=== PATIENT | male | born 1940 | race Caucasian/White ===

== ENCOUNTER 2020-01-15 11:07 | Outpatient (CLI) | payer MEDICARE, SELFPAY ==
[2020-01-15 11:36] LABS: Basophils Percent Auto 0.8 % (0.2-1.2); Eosinophils Percent Auto 0.8 % (0-4.4); Hematocrit 24.9 % (42.0-52.0); Hemoglobin 8.1 g/dL (14.0-18.0); Immature Reticulocyte Fraction 22.7 % (3.0-15.9); Lymphocytes Absolute Auto 1.01 K/mm3 (0.9-3.2); Lymphocytes Percent Auto 80.2 % (18.3-44.2); Mean Corpuscular HGB Conc 32.5 g/dl (32-36); Mean Corpuscular Volume 116.9 fl (80-100); Mean Platelet Volume 10.6 fl (7.4-10.4); Monocytes Absolute Auto 0.1 K/mm3 (0.1-0.6); Monocytes Percent Auto 4.8 % (2.6-8.5); Neutrophils Absolute Auto 0.2 K/mm3 (1.3-6.7); Neutrophils Percent Auto 13.4 % (45.5-73.1); Platelet Count Result 48 k/mm3 (150-375); Red Blood Count 2.13 M/mm3 (4.6-6.20); Red Cell Distribution Width 16.6 % (11.5-14.5); Reticulocyte Hemoglobin Conten 39.7 pg (28.2-35.7); Reticulocyte Percent 2.75 % (0.7-4.3); Reticulocytes Absolute 0.06 B/L (32.2-175.7)
[2020-01-15 11:37] LABS: White Blood Count 1.3 K/mm3 (4.5-10.0)
[2020-01-15 11:42] LABS: Hypochromasia 1+ (NORMAL); Platelet Estimate Decreased (Adequate)
[2020-01-15 11:43] LABS: Ovalocytes 1+ (NORMAL); Poikilocytosis 1+ (NORMAL)
[2020-01-15 15:04] LABS: Iron 143 ug/dL (49-181)
[2020-01-15 15:06] LABS: Alanine Aminotransferase 9 U/L (4-50); Albumin Level 3.8 g/dL (3.5-5.1); Alkaline Phosphatase 57 U/L (38-126); Aspartate Amino Transferase 13 U/L (17-59); Bilirubin,Total 0.4 mg/dL (0.2-1.3); Blood Urea Nitrogen 14 mg/dL (9-20); Calcium 8.5 mg/dL (8.4-10.2); Carbon Dioxide 27 mmol/L (22-30); Chloride 105 mmol/L (98-107); Estimated Glomerular Filt Rate > 60; Glucose 119 mg/dL (75-110); Lactate Dehydrogenase 342 U/L (313-618); Potassium 4.3 mmol/L (3.4-5.0); Sodium 138 mmol/L (137-145)
[2020-01-15 15:21] LABS: Percent Iron Saturation 49 % (20-50)
== END 2020-01-15 11:08 | disposition home or self-care (01) ==
PROVIDERS: PCP Internal Medicine; Visit Provider Internal Medicine Hematology & Oncology
DX: D61.818 Other pancytopenia (principal); D50.9 Iron deficiency anemia, unspecified
CPT/HCPCS: 36415; 80053; 82607; 82728; 83540; 83550; 83615; 85025; 85046; 85055

== ENCOUNTER 2020-01-23 06:40 | Day surgery (SDC) | payer MEDICARE, SELFPAY ==
[2020-01-22 16:23] VITALS: BMI 28.5
--- NOTE | ~2020-01-23 | BM_ITS ---
EXAMINATION: CCL bone marrow asp w bx diag ORDER COMPLETED DATE: 01/23/2020 08:04 INDICATION: Pancytopenia TECHNIQUE: A time-out was performed to verify the patient's name, date of , and procedure to b e performed. The procedure including the risks and benefits was discussed with the patient. Risks dis cussed included bleeding, infection, nerve injury and allergic reaction. The patient understood the r isks and agreed to proceed. The skin overlying the right posterior iliac spine was prepped and draped in usual sterile fashion. Anesthetic was administered with 1% lidocaine subcutaneously. Generalized analgesia was achieved with 50 mcg fentanyl IV. An 11 gauge needle was inserted into the ilium with fluoroscopic guidance. Bone marrow was aspirated. An 8 gauge needle was then inserted into the ilium with fluoroscopic guidance. A core bone marrow biopsy was obtained. The needle was removed and the en try site was cleaned and dressed. There were no immediate complications. A total of 7 fluoroscopic i mages were recorded. Fluoroscopy exposure time was 0.1 minutes. FINDINGS: Real-time fluoroscopy demonstrates the biopsy needle tip overlying the right posterior rossi c spine. IMPRESSION: 1. Successful fluoroscopic guided bone marrow aspiration. 2. Successful fluoroscopic guided bone marrow biopsy. Reviewed, dictated and finalized at location A.
[2020-01-23 07:13] LABS: Hematocrit 25.2 % (42.0-52.0); Hemoglobin 8.2 g/dL (14.0-18.0); Immature Platelet Fraction Pct 1.2 % (0.9-11.2); Mean Corpuscular HGB Conc 32.5 g/dl (32-36); Mean Corpuscular Hemoglobin 37.4 pg (26-34); Mean Corpuscular Volume 115.1 fl (80-100); Mean Platelet Volume 10.2 fl (7.4-10.4); Platelet Count Result 50 k/mm3 (150-375); Red Blood Count 2.19 M/mm3 (4.6-6.20); Red Cell Distribution Width 15.9 % (11.5-14.5)
[2020-01-23 07:14] VITALS: BP 158/64; PULSE 65; RESP 14; TEMP 36.4; O2SAT 99
[2020-01-23 07:15] LABS: White Blood Count 1.2 K/mm3 (4.5-10.0)
--- NOTE | 2020-01-23 08:08 | SUR.PHASEII ---
BEGIN PHASE II RECOVERY. RETURNS TO DENTAL OFFICE RECEPTIONIST 3 S/P BONE MARROW ASPIRATION AND BIOPSY R. POSTERIOR HIP W/ DR. SOTELO. IN POSITIONED ON BACK ON STRETCHER. DENIES PAIN OR SOB ON ARRIVAL. AWAKE AND ALERT. R. POSTERIOR HIP DRESSING A C/D/I PRESSURE DRESSING OF GUAZE AND PAPER TAPE. AREA NONTENDER, NO BLEEDING OR HEMATOMA NOTED. VSS. WILL CONTINUE TO MONITOR. BEDREST RESTRICTIONS REVIEWED W/ PT AND . VOICED UNDERSTANDING.
[2020-01-23 08:10] VITALS: BP 158/81; PULSE 61; RESP 18; TEMP 36.6; O2SAT 99
[2020-01-23 08:25] VITALS: BP 128/59; PULSE 58; RESP 18; O2SAT 97
[2020-01-23 08:40] VITALS: BP 122/57; PULSE 57; RESP 18; O2SAT 94
[2020-01-23 08:55] VITALS: BP 117/58; PULSE 56; RESP 18; O2SAT 99
--- NOTE | 2020-01-23 09:15 | SUR.PHASEII ---
VSS. R. POSTERIOR HIP DRESSING REMAINS C/D/I. SITE IS NONTENDER, NO BLEEDING OR HEMATOMA NOTED. DENIES PAIN. UP IN ROOM DRESSING FOR DISCHARGE HOME. STEADY.
--- NOTE | 2020-01-23 09:26 | SUR.PHASEII ---
DISCHARGE INSTRUCTIONS AND BIOPSY SITE WOUND CARE GIVEN AND REVIEWED W/ PT. AND . QUESTIONS ANSWERED AND VOICED UNDERSTANDING.
--- NOTE | 2020-01-23 14:08 | SUR.PHASEII ---
Addendum entered by Angela Chong RN 01/23/20 14:09: NOTE TIME 92901/23/20; SAME DISCHARGE TIME. Original Note: END PHASE II RECOVERY. DISCHARGED HOME, OUT VIA WC W/ AT SIDE TO VEHICLE, WITH ALL PERSONAL BELONGINGS AND DISCHARGE INSTRUCTIONS. VOICES NO C/O.
== END 2020-01-23 09:26 | disposition home or self-care (01) ==
PROVIDERS: PCP Internal Medicine; Referring Provider Internal Medicine Hematology & Oncology; Visit Provider Radiology Diagnostic Radiology
DX: C92.00 Acute myeloblastic leukemia, not having achieved remission (principal); D61.818 Other pancytopenia
CPT/HCPCS: 36415; 38222; 85027; 85055; 88184; 88185; 88305; 88311; 88313; A9270; J2250; J3010; J7040

== ENCOUNTER 2020-01-26 08:24 | Outpatient (CLI) | payer MEDICARE, SELFPAY ==
--- NOTE | ~2020-01-26 | US_ITS ---
US abdomen complete EXAMINATION: US Abdomen Complete INDICATION: Pancytopenia PROCEDURE: Realtime High Resolution abdomen ultrasound. COMPARISON: No prior studies for comparison FINDINGS: Gallbladder within normal limits. No gallstones, pericholecystic fluid, gallbladder wall t hickening or biliary dilatation. Common bile duct measures 4.6 mm. Liver echotexture within normal limits without focal mass. Pancreas within normal limits. Pancreati c tail is obscured by bowel gas. Spleen is unremarkeable. Renal echotexture is within normal limits bilaterally without hydronephrosis, contour deforming mass or renal stone. Right kidney measures 9.6 cm. Left kidney measures 11 cm. Visualized aspects of the aorta and IVC are within normal limits. Portal vein is patent. No sonograph ic Lloyd's sign indicated by the technologist. IMPRESSION: 1: Normal abdominal ultrasound. Reviewed, dictated and finalized at location A.
== END 2020-01-26 08:25 | disposition home or self-care (01) ==
PROVIDERS: PCP Internal Medicine; Visit Provider Internal Medicine Hematology & Oncology
DX: D61.818 Other pancytopenia (principal)
CPT/HCPCS: 76700

== ENCOUNTER 2020-03-03 02:06 | Outpatient (CLI) | payer MEDICARE, SELFPAY ==
[2020-03-03 18:54] LABS: SARS-CoV-2 RNA PCR Negative
== END 2020-03-03 02:07 | disposition home or self-care (01) ==
LOC: ANHCOVIDDT 02:11
PROVIDERS: Visit Provider Surgery
DX: Z01.812 Encounter for preprocedural laboratory examination (principal); Z20.828 Contact with and (suspected) exposure to other viral communicable diseases
CPT/HCPCS: 87635; C9803; U0003

== ENCOUNTER 2020-03-03 08:29 | Outpatient (CLI) | payer MEDICARE, SELFPAY ==
--- NOTE | 2020-03-03 08:30 | ECG_ITS ---
Measurements Intervals [place] Rate: 53 P: 98 [place]: 171 QRS: 29 QRSD: 150 T: 22 QT: 453 QTc: 428 Interpretive Statements SINUS BRADYCARDIA RIGHT BUNDLE BRANCH BLOCK BASELINE ARTIFACT- I, II, III, AVR, AVL, AVF ABNORMAL ECG Electronically Signed On 03-03-2020 9:19:48 CDT by Maldonado Ferrell D.O.
[2020-03-03 09:00] LABS: Eosinophils Percent Auto 0.9 % (0-4.4); Hematocrit 23.4 % (42.0-52.0); Hemoglobin 8.1 g/dL (14.0-18.0); Immature Granulocyte Absolute 0.01 K/mm3 (0.00-0.031); Immature Granulocyte Percent A 0.9 % (0-0.5); Immature Platelet Fraction Pct 1.3 % (0.9-11.2); Lymphocytes Absolute Auto 0.96 K/mm3 (0.9-3.2); Mean Corpuscular HGB Conc 34.6 g/dl (32-36); Mean Corpuscular Hemoglobin 38.8 pg (26-34); Monocytes Percent Auto 3.5 % (2.6-8.5); Neutrophils Absolute Auto 0.1 K/mm3 (1.3-6.7); Neutrophils Percent Auto 9.7 % (45.5-73.1); Platelet Count Result 47 k/mm3 (150-375); Red Blood Count 2.09 M/mm3 (4.6-6.20); Red Cell Distribution Width 15.9 % (11.5-14.5)
[2020-03-03 09:09] LABS: INR 1.1; Partial Thromboplastin Time 23.6 SECONDS (22.3-36.8); Prothrombin Time 14.2 Seconds (11.1-14.7)
[2020-03-03 09:17] LABS: White Blood Count 1.1 K/mm3 (4.5-10.0)
== END 2020-03-03 08:30 | disposition home or self-care (01) ==
PROVIDERS: PCP Internal Medicine; Visit Provider Surgery
DX: C92.00 Acute myeloblastic leukemia, not having achieved remission (principal); Z01.818 Encounter for other preprocedural examination; I45.10 Unspecified right bundle-branch block
CPT/HCPCS: 36415; 85025; 85055; 85610; 85730; 87635; 93005; C9803; U0003

== ENCOUNTER 2020-03-05 01:35 | Day surgery (SDC) | payer MEDICARE, SELFPAY ==
[2020-03-02 12:33] VITALS: BMI 27.8
--- NOTE | 2020-03-05 10:56 | WPDANESEPPF ---
Anes - Initial Pre Proc Eval Procedure: Operation Date: 03/05/20 13:00 Proposed Procedures p Insertion Port A Cath - Renu Pacheco MD Date/Time: 03/05/20 10:56 Surgeon: Renu Pacheco MD Pre Op Diagnosis: acute myeloid leukemia Patient Data Age: 79 Gender: M Height: 1.83 m Weight: 93 kg Allergies Allergy/AdvReac Type Severity Reaction Status Date / Time No Known Allergies Allergy Unverified 03/02/20 12:03 Home Medications Medication Instructions Recorded Confirmed Type dorzolamide [Trusopt] 1 drp OPHTHALMIC (EYE) BID 01/22/20 03/02/20 History latanoprost [Xalatan] 1 drp OPHTHALMIC (EYE) HS 01/22/20 03/02/20 History propranolol 20 mg PO BID 01/22/20 03/02/20 History ciprofloxacin HCl [Cipro] 500 mg BID 03/02/20 03/02/20 History cyanocobalamin (vitamin B-12) 1,000 mcg PO DAILY 03/02/20 03/02/20 History posaconazole [Noxafil] See Rx Instructions .ROUTE .COMPLEX 03/02/20 03/02/20 History valacyclovir 500 mg PO Q12H 03/02/20 03/02/20 History PMFSH Past Medical History Medical History (Updated 03/05/20 @ 10:57 by Alex Sullivan MD) AML (acute myelogenous leukemia) History of prostate cancer Other decreased white blood cell count Pancytopenia Tremor Unspecified glaucoma (01/11/19) Family History Family History (Updated 12/20/17 @ 13:31 by DOCTOR UNKNOWN) Father Family history of malignant neoplasm Sibling Family history of malignant neoplasm Mother Patient's mother is Other Family history of malignant neoplasm of ovary Social History Social History Smoking status: Former smoker Tobacco type: cigarettes Smoking end date: 07/17/14 Alcohol intake: current Drinks per week: 21 Substance use: never Substance use type: does not use Living arrangements: with family Gender identity (if verbalized by the patient): Male Spiritual care concerns: No Anes - Eval Final PreProcedure Day of Procedure 03/05/20 10:56 Patient weight: overweight Heart: regular rate and rhythm Lungs: clear to auscultation and normal air movement Airway: Mallampati scale class II Neurological: alert and oriented Last oral intake: >/= 8 hours ASA classification: III Emergent: no Anesthetic plan: proceed Anesthesia type and monitoring: general GIVS Informed Consent: The patient's anesthetic plan and its attendant risks and benefits were discussed with the patient/family/POA. Questions were solicited and answers provided to the satisfaction of the patient/family/POA.
[2020-03-05 11:22] VITALS: BP 155/56; PULSE 53; RESP 18; TEMP 36.3; O2SAT 100
[2020-03-05] MEDS: LACTATED RINGERS 1,000 ML 30 ML IV CONT (11:35)
[2020-03-05 11:54] LABS: Hematocrit 23.4 % (42.0-52.0); Mean Corpuscular HGB Conc 34.2 g/dl (32-36); Mean Corpuscular Hemoglobin 38.3 pg (26-34); Mean Platelet Volume 9.3 fl (7.4-10.4); Platelet Count Result 38 k/mm3 (150-375); Red Blood Count 2.09 M/mm3 (4.6-6.20); Red Cell Distribution Width 16.1 % (11.5-14.5)
[2020-03-05 12:02] LABS: White Blood Count 1.2 K/mm3 (4.5-10.0)
[2020-03-05 12:11] LABS: Lymphocytes Absolute Manual 1.02 K/mm3 (1.1-4.5); Neutrophils Percent Manual 15 % (46-73); Nucleated Red Blood Cells 2 %; Total Cells Counted 100
[2020-03-05 12:14] LABS: Hypochromasia 1+ (NORMAL); Ovalocytes 1+ (NORMAL); Platelet Estimate Decreased (Adequate); Poikilocytosis 1+ (NORMAL)
--- NOTE | 2020-03-05 12:53 | SUR.PREOP ---
Discharged home. cased cancelled due to low platelet count.
== END 2020-03-05 12:54 | disposition home or self-care (01) ==
PROVIDERS: PCP Internal Medicine; Visit Provider Surgery
DX: C92.00 Acute myeloblastic leukemia, not having achieved remission (principal); D69.6 Thrombocytopenia, unspecified; Z53.09 Procedure and treatment not carried out because of other contraindication
CPT/HCPCS: 36415; 85025; 99212; G0463; J7120

== ENCOUNTER 2020-03-10 02:15 | Outpatient (CLI) | payer MEDICARE, SELFPAY ==
[2020-03-10 18:23] LABS: SARS-CoV-2 RNA PCR Negative
== END 2020-03-10 02:16 | disposition home or self-care (01) ==
LOC: ANHCOVIDDT 02:16
PROVIDERS: PCP Internal Medicine; Visit Provider Surgery
DX: Z01.812 Encounter for preprocedural laboratory examination (principal); Z20.828 Contact with and (suspected) exposure to other viral communicable diseases
CPT/HCPCS: 87635; C9803; U0003

== ENCOUNTER 2020-03-12 01:26 | Day surgery (SDC) | payer MEDICARE, SELFPAY ==
[2020-03-10 13:57] VITALS: BMI 27.3
--- NOTE | ~2020-03-12 | XR_ITS ---
EXAMINATION: XR fl guide central line place DATE: 03/12/2020 12:33 INDICATION: Port catheter placement TECHNIQUE: 2 fluoroscopic spot images of the left and central chest were obtained during procedure pe rformed by Dr. Pacheco. Radiologist was not present for the imaging or procedure. The amount of fluoros copy time used during this procedure was 0.2 minutes. COMPARISON: None. FINDINGS: Left subclavian central venous port catheter with distal tip at the superior cavoatrial junction. Uti lized portions of the lungs are clear. No pneumothorax. IMPRESSION: 1. Left subclavian central venous port catheter tip at the superior cavoatrial junction. Reviewed, dictated and finalized at location A.
--- NOTE | ~2020-03-12 | XR_ITS ---
EXAMINATION: XR chest port-a-cath/central DATE: 03/12/2020 13:01 INDICATION: Port catheter insertion TECHNIQUE: frontal view of the chest was obtained. COMPARISON: None FINDINGS: Left subclavian central venous port catheter with distal tip at the superior cavoatrial junction. Rig ht costophrenic angle is excluded from the [id number]. Visualized lungs are clear with no airspace opacities, pulmonary edema, pleural effusion or pneumothorax. The cardiomediastinal silhouette is no rmal. Atherosclerotic calcifications at the aortic arch. IMPRESSION: 1. Left subclavian central venous port catheter tip at the superior cavoatrial junction. 2. No acute cardiopulmonary disease. Reviewed, dictated and finalized at location A.
[2020-03-12] MEDS: LACTATED RINGERS 1,000 ML 30 ML IV CONT (09:25)
[2020-03-12 09:37] LABS: Eosinophils Percent Auto 1.1 % (0-4.4); Hematocrit 23.9 % (42.0-52.0); Hemoglobin 7.9 g/dL (14.0-18.0); Immature Platelet Fraction Pct 1.3 % (0.9-11.2); Lymphocytes Absolute Auto 0.77 K/mm3 (0.9-3.2); Lymphocytes Percent Auto 86.5 % (18.3-44.2); Mean Corpuscular HGB Conc 33.1 g/dl (32-36); Mean Corpuscular Hemoglobin 38.3 pg (26-34); Mean Platelet Volume 9.7 fl (7.4-10.4); Monocytes Percent Auto 2.2 % (2.6-8.5); Neutrophils Absolute Auto 0.1 K/mm3 (1.3-6.7); Neutrophils Percent Auto 10.2 % (45.5-73.1); Platelet Count Result 38 k/mm3 (150-375); Red Blood Count 2.06 M/mm3 (4.6-6.20)
[2020-03-12 09:54] VITALS: BP 123/51; PULSE 51; RESP 16; TEMP 36.6
[2020-03-12 09:55] LABS: White Blood Count 0.9 K/mm3 (4.5-10.0)
[2020-03-12] MEDS: SODIUM CHLORIDE 0.9% IV 250 ML 30 ML IV CONT (11:00)
--- NOTE | 2020-03-12 11:05 | WPDANESEPPF ---
Anes - Initial Pre Proc Eval Procedure: Operation Date: 03/12/20 12:00 Proposed Procedures p Insertion Dinesh Cath - Renu Pacheco MD Date/Time: 03/12/20 11:05 Surgeon: Renu Pacheco MD Pre Op Diagnosis: Acute Myeloblastic Patient Data Age: 79 Gender: M Height: 6 ft Weight: 90.2 kg Last Vital Signs Temp 36.6 C 03/12/20 09:54 Pulse 51 L 03/12/20 09:54 Resp 16 03/12/20 09:54 BP 123/51 L 03/12/20 09:54 Allergies Allergy/AdvReac Type Severity Reaction Status Date / Time No Known Allergies Allergy Verified 03/12/20 09:42 Home Medications Medication Instructions Recorded Confirmed Type dorzolamide [Trusopt] 1 drp OPHTHALMIC (EYE) BID 01/22/20 03/12/20 History latanoprost [Xalatan] 1 drp OPHTHALMIC (EYE) HS 01/22/20 03/12/20 History ciprofloxacin HCl [Cipro] 500 mg BID 03/02/20 03/12/20 History posaconazole [Noxafil] 100 mg PO QAM 03/02/20 03/12/20 History valacyclovir 500 mg PO Q12H 03/02/20 03/12/20 History propranolol 20 mg tablet 20 mg PO BID #180 tablet 03/10/20 03/12/20 Rx Laboratory Tests 03/12/20 03/12/20 09:29 09:29 WBC 0.9 K/mm3 L* K/mm3 (4.5-10.0) RBC 2.06 M/mm3 L M/mm3 (4.6-6.20) Hgb 7.9 g/dL L g/dL (14.0-18.0) Hct 23.9 % L % (42.0-52.0) MCV 116.0 fl H fl (80-100) MCH 38.3 pg H pg (26-34) MCHC 33.1 g/dl g/dl (32-36) RDW 17.0 % H % (11.5-14.5) Plt Count 38 k/mm3 L k/mm3 (150-375) MPV 9.7 fl fl (7.4-10.4) Immature Gran % (Auto) 0.0 % % (0-0.5) Neut % (Auto) 10.2 % L % (45.5-73.1) Lymph % (Auto) 86.5 % H % (18.3-44.2) [place] % (Auto) 2.2 % L % (2.6-8.5) Eos % (Auto) 1.1 % % (0-4.4) Baso % (Auto) 0.0 % L % (0.2-1.2) Lymph # (Auto) 0.77 K/mm3 L K/mm3 (0.9-3.2) [place] # (Auto) 0.0 K/mm3 L K/mm3 (0.1-0.6) Eos # (Auto) 0.0 K/mm3 K/mm3 (0-0.3) Baso # (Auto) 0.0 K/mm3 K/mm3 (0.0-0.1) Abs Immat Gran (auto) 0.00 K/mm3 K/mm3 (0.00-0.031) Absolute Neuts (auto) 0.1 K/mm3 L K/mm3 (1.3-6.7) Absolute Nucleated RBC 0.0 K/mm3 K/mm3 (0.0-0.012) Nucleated RBC % 0.0 % % (0.0-0.2) % Immature Plt Fraction 1.3 % % (0.9-11.2) Blood Type A Negative Antibody Screen Negative Patient hx anesthesia problems: none Family hx anesthesia problems: none PMFSH Past Medical History Medical History AML (acute myelogenous leukemia) History of prostate cancer Other decreased white blood cell count Pancytopenia Tremor Unspecified glaucoma (01/11/19) Family History Family History Father Family history of malignant neoplasm Sibling Family history of malignant neoplasm Mother Patient's mother is Other Family history of malignant neoplasm of ovary Social History Social History Smoking packs per day: 1 Smoking cigarettes per day: 20.0 Years smoked: 50 Smoking pack-years: 50.00 Smoking status: Former smoker Tobacco type: cigarettes Smoking end date: 01/01/16 Alcohol intake: current Drinks per week: 21 Alcohol use details: 3 BEERS DAILY Substance use: never Substance use type: does not use Living arrangements: with family Gender identity (if verbalized by the patient): Male Spiritual care concerns: No Anes - Eval Final PreProcedure Day of Procedure 03/12/20 11:05 Patient weight: overweight Heart: regular rate and rhythm Lungs: decreased breath sounds Airway: Mallampati scale class II Neurological: alert and oriented Last oral intake: >/= 8 hours ASA classification: IV Emergent: no Anesthetic plan: proceed Anesthesia type and monitoring: general GIVS and standard monitoring Informed Consent: The patient's anesthetic plan a
[2020-03-12 11:06] VITALS: BP 127/49; PULSE 52; RESP 20; TEMP 36.7; O2SAT 100
[2020-03-12 11:21] VITALS: BP 133/56; PULSE 57; RESP 20; TEMP 36.7; O2SAT 100
--- NOTE | 2020-03-12 11:25 | PM.IMHP ---
H&P: HPI History of Present Illness Date/Time: 03/12/20 11:25 Chief complaint: Acute Myeloblastic Narrative: uYniel Jimenes is a 79 year old male presenting for VAD insertion. Pt is going to undergo treatment for recently dx'd AML. Pt is setup to start treatment on 03/16. Pt denies any previous central catherterization. Pt is right handed. Review of Systems Constitutional: Constitutional: Denies body ache(s), Denies chills, Reports fatigue, Reports lethargy, Denies night sweats and Reports weakness Eyes: Eyes: Reports no additional eye complaints ENT: Reports system reviewed and no additional complaints, except as documented and Reports Normal hearing present Cardiovascular: Cardiovascular: Denies chest pain and Denies palpitations Respiratory: Respiratory: Denies cough and Denies dyspnea Gastrointestinal: Gastrointestinal: Denies abdominal pain, Denies bloating, Denies constipation, Denies diarrhea, Denies nausea and Denies vomiting Genitourinary: Genitourinary: Denies hematuria, Denies dysuria and Denies urinary urgency Musculoskeletal: Musculoskeletal: Reports no additional musculoskeletal complaints Integumentary/Breasts: Skin/Breast: Reports system reviewed and no additional complaints, except as docu Neurologic: Reports system reviewed and no additional complaints, except as documented Psychiatric: Psychiatric: Reports no additional psychiatric complaints PMF Past Medical History Medical History AML (acute myelogenous leukemia) History of prostate cancer Other decreased white blood cell count Pancytopenia Tremor Unspecified glaucoma (01/11/19) Family History Family History Father Family history of malignant neoplasm Sibling Family history of malignant neoplasm Mother Patient's mother is Other Family history of malignant neoplasm of ovary Social History Social History Smoking packs per day: 1 Smoking cigarettes per day: 20.0 Years smoked: 50 Smoking pack-years: 50.00 Smoking status: Former smoker Tobacco type: cigarettes Smoking end date: 07/17/15 Alcohol intake: current Drinks per week: 21 Alcohol use details: 3 BEERS DAILY Substance use: never Substance use type: does not use Living arrangements: with family Gender identity (if verbalized by the patient): Male Spiritual care concerns: No Meds Home Medications and Allergies Home Medications Medication Instructions Recorded Confirmed Type dorzolamide [Trusopt] 1 drp OPHTHALMIC (EYE) BID 01/22/20 03/12/20 History latanoprost [Xalatan] 1 drp OPHTHALMIC (EYE) HS 01/22/20 03/12/20 History ciprofloxacin HCl [Cipro] 500 mg BID 03/02/20 03/12/20 History posaconazole [Noxafil] 100 mg PO QAM 03/02/20 03/12/20 History valacyclovir 500 mg PO Q12H 03/02/20 03/12/20 History propranolol 20 mg tablet 20 mg PO BID #180 tablet 03/10/20 03/12/20 Rx Allergies Allergy/AdvReac Type Severity Reaction Status Date / Time No Known Allergies Allergy Verified 03/12/20 09:42 Vital Signs Vital Signs - 24 hr 03/12/20 09:54 03/12/20 11:06 03/12/20 11:21 Temperature 36.6 C 36.7 C 36.7 C Pulse Rate 51 L 52 L 57 L Respiratory Rate 16 20 20 Blood Pressure 123/51 L 127/49 L 133/56 L Pulse Oximetry 100 100 Exam Const: General: comfortable and no acute distress HENMT: Mouth: Yes moist mucous membranes Eyes: General: appearance normal, both eyes and all related structures Neck: Neck: supple and no JVD Lymphatic: lymphadenopathy not noted Resp: Auscultation: clear to auscultation bilaterally Cardio: Rate: regular rate Rhythm: regular rhythm GI: Inspection: non-distended GI Palp: Yes Soft to palpation, No Tenderness to palpation present (GI) and No Hernia present Skin: General skin exam: normal color and no rashes or
[2020-03-12] MEDS: ceFAZolin 2 GM/D5W 50 ML 2 GM/50 ML BAG IVPB (11:53)
[2020-03-12] MEDS: BUPIVACAINE/EPINEPHRINE 0.5% 30 ML VIAL INFILTRATE (12:21)
[2020-03-12] MEDS: HEPARIN SODIUM, PORCINE 10,000 UNITS/10 ML VIAL 10000 UNITS IRRIGATION (12:22)
[2020-03-12] MEDS: HEPARIN SODIUM 5,000 UNITS/ML VIAL 5000 UNITS IRRIGATION (12:23)
[2020-03-12 12:40] VITALS: BP 135/63; PULSE 66; RESP 18; O2SAT 100
--- NOTE | 2020-03-12 13:03 | PM.PROC ---
Procedure Note - Detailed Date of procedure: 03/12/20 Pre-op diagnosis: Acute Myeloblastic Post-op diagnosis: same Procedure performed: placement of left subclavian venous access device under fluroscopic guidance Description of procedure: Patient was brought into the operating room and placed in the supine position. After adequate induction of mac anesthesia, the patient was prepped and draped in normal sterile fashion. Time-out was then done to verify the patient's identity, as well as the procedure being performed. I began by making a small incision in the left chest, I then gained access into the left subclavian vein with an 18 gauge needle. I then placed the guidewire into the vein and confirmed placement via fluoroscopic guidance. I then locally anesthetized the area in the left chest. I then enlarged the incision around the guidewire including making a subcutaneous pocket inferiorly to allow placement of the port itself. I then placed a dilating sheath over the guidewire into the left subclavian vein via sterile Seldinger technique. This was once again done and confirmed via fluoroscopic guidance. I then removed the dilator and the guidewire, now just leaving the sheath in the vein. I then fed the previously flushed catheter into the left subclavian vein under fluoroscopic guidance. At approximately 22 cm, the catheter was noted to be near the atrial caval junction. I then peeled away the sheath, now just leaving the catheter in the vein. I then was able to easily draw and flush from the catheter. The catheter was cut to fit and attached to the port itself. The port was placed into the previously made subcutaneous pocket and sutured in with 0 Ethibond suture. Final fluoroscopic view showed the termination of the catheter at the atrial caval junction with a nice smooth curvature back to the port itself. I was able to gain access to the port with a Bautista needle and was able to easily draw and flush from the port. I then flushed 3 cc of a final heparin flush into the port. The incision was closed with 3 0 Vicryl suture in the subcutaneous tissue and the skin was closed with 4 O Monocryl subcuticular suture. Dermabond was then placed on wound. The patient tolerated the procedure well and will be sent to the recovery room in stable condition. Implants: L SCV VAD Anesthesia: MAC and local Surgeon: Renu Pacheco MD Estimated blood loss (mL): 5 Drains: No Packing: No Pathology: none sent Complications: No immediate complications Condition: stable Disposition: PACU Findings: placement of L SCV VAD via 1st stick
[2020-03-12 13:11] VITALS: BP 136/61; PULSE 64; RESP 16
== END 2020-03-12 13:55 | disposition home or self-care (01) ==
PROVIDERS: PCP Internal Medicine; Visit Provider Surgery
PROC: (CPT 36561; principal; 2020-03-12 12:00)
DX: C92.00 Acute myeloblastic leukemia, not having achieved remission (principal); D61.818 Other pancytopenia
CPT/HCPCS: 36561; 36415; 36430; 76937; 77001; 85025; 85055; 86850; 86900; 86901; C1788; J0690; J1644; J2704; J3010; J7030; J7050; J7120; P9034

== ENCOUNTER 2020-04-01 07:23 | Outpatient (RCR) | payer MEDICARE, SELFPAY ==
[2020-04-01] VITALS (8 sets, daily range): BP systolic 101–127; BP diastolic 52–59; PULSE 67–86; RESP 12–15; TEMP 37–37.6; O2SAT 97–100
[2020-04-01] MEDS: diphenhydrAMINE HCl CAP 25 MG CAPSULE PO (08:11)
[2020-04-01] MEDS: ACETAMINOPHEN 325 MG TABLET 650 MG PO (08:11)
[2020-04-01] MEDS: FUROSEMIDE INJ 40 MG/4 ML VIAL 20 MG IV PUSH (11:29)
== END 2020-05-28 23:59 | disposition home or self-care (01) ==
LOC: ANHCPCTRAN 07:23
PROVIDERS: PCP Internal Medicine; Visit Provider Internal Medicine Hematology & Oncology
DX: C92.00 Acute myeloblastic leukemia, not having achieved remission (principal)
CPT/HCPCS: 36415; 36430; 86850; 86900; 86901; 86923; A9270; J1940; P9016

== ENCOUNTER 2020-04-03 09:13 | Inpatient (IN) | payer MEDICARE, SELFPAY ==
[2020-04-03] VITALS (15 sets, daily range): BP systolic 99–125; BP diastolic 48–57; PULSE 76–116; RESP 16–29; TEMP 36.7–38.3; O2SAT 95–99
--- NOTE | ~2020-04-03 | XR_ITS ---
EXAMINATION: XR chest 1V portable EXAM DATE: 04/03/2020 10:21 INDICATION: Weakness. TECHNIQUE: Portable AP frontal chest x-ray was obtained. There is no prior study for comparison. FINDINGS: There is a left-sided portacatheter. There is aortic arteriosclerosis. The lungs are clear. There are no pleural effusions. Cardiac silhouette is prominent but magnified on this AP technique . There is no pneumothorax suspected. The bones and soft tissues are unremarkable. IMPRESSION: No acute cardiopulmonary findings. Reviewed, dictated and finalized at location A.
--- NOTE | ~2020-04-03 | BM_ITS ---
EXAMINATION: CCL bone marrow asp w bx diag DATE: 04/13/2020 11:20 INDICATION: Acute myelogenous leukemia. TECHNIQUE: A time-out was performed to verify the patient's name, date of , and procedure to b e performed. The procedure including the risks, benefits, and alternatives was discussed with the pat ient. Risks discussed included bleeding and infection. The patient understood the risks and agreed to proceed. The skin overlying the right ilium was prepped and draped in usual sterile fashion. Anest hetic was administered with 1% lidocaine subcutaneously. Moderate sedation was achieved with 1 mg Hector sed IV and 50 mcg fentanyl IV. An 11 gauge needle was inserted into the ilium with fluoroscopic guid ance. Bone marrow was aspirated. An 8 gauge needle was then inserted into the ilium with fluoroscopic guidance. A core bone marrow biopsy was obtained. There were no immediate complications. Fluoroscopy exposure time was 0.0 minutes. The total number of images was 4. FINDINGS: Real-time fluoroscopy demonstrates a marker overlying the right posterior superior iliac sp ine. IMPRESSION: 1. Fluoro-guided bone marrow aspiration. 2. Fluoro-guided bone marrow core biopsy. Reviewed, dictated and finalized at location A.
--- NOTE | 2020-04-03 09:18 | ED.WEAKNESS ---
HPI - Weakness General Chief complaint: Weakness Stated complaint: weakness Time Seen by Provider: 04/03/20 09:18 History of Present Illness HPI Narrative: 79 yo male with h/o AML brought in from home for generalized weakness. He received chemo 2 days ago. He has not been eating or drinking since that time. He has vomited and reports ongoing nausea at this time. Additionally EMS found him to be incontinent of urine. On arrival here he has a mild temperature elevation. Related Data Home Medications Medication Instructions Recorded Confirmed dorzolamide [Trusopt] 1 drp OPHTHALMIC (EYE) BID 01/22/20 04/03/20 latanoprost [Xalatan] 1 drp OPHTHALMIC (EYE) HS 01/22/20 04/03/20 ciprofloxacin HCl [Cipro] 500 mg BID 03/02/20 04/03/20 posaconazole [Noxafil] 100 mg PO QAM 03/02/20 03/20/20 valacyclovir 500 mg PO Q12H 03/02/20 04/03/20 allopurinol 300 mg PO DAILY 04/03/20 04/03/20 fluconazole [Diflucan] 200 mg PO DAILY 04/03/20 04/03/20 venetoclax [Venclexta] 100 mg PO HS 04/03/20 04/03/20 Allergies Allergy/AdvReac Type Severity Reaction Status Date / Time No Known Allergies Allergy Verified 04/03/20 09:19 Review of Systems Review of Systems: All systems reviewed & are unremarkable except as noted in HPI and below Constitutional: Constitutional: Reports weakness Cardiovascular: Cardiovascular: Denies chest pain Respiratory: Respiratory: Denies dyspnea Gastrointestinal: Gastrointestinal: Denies abdominal pain, Reports nausea and Reports vomiting Genitourinary: Genitourinary: Reports urinary incontinence Musculoskeletal: Musculoskeletal: Denies back pain Neurologic: Reports weakness [facility] Past Medical History Medical History AML (acute myelogenous leukemia) History of prostate cancer Other decreased white blood cell count Pancytopenia Tremor Unspecified glaucoma (01/11/19) Family History Family History Father Family history of malignant neoplasm Sibling Family history of malignant neoplasm Mother Patient's mother is Other Family history of malignant neoplasm of ovary Social History Social History Smoking packs per day: 1 Smoking cigarettes per day: 20.0 Years smoked: 50 Smoking pack-years: 50.00 Smoking status: Former smoker Tobacco type: cigarettes Smoking end date: 07/17/15 Alcohol intake: never Drinks per week: 0 Substance use: never Substance use type: does not use Gender identity (if verbalized by the patient): Male Spiritual care concerns: No Exam Const: General: no acute distress, alert and ill appearing acutely and chronically Orientation/consciousness: patient oriented x3 Other: Dried vomitus on face and chest HENMT: Mouth: Yes dry mucous membranes Eyes: Pupils: Equal, round and reactive pupils present Resp: Effort & Inspection: normal respiratory effort Auscultation: wheezes right upper Cardio: Rate: tachycardic Rhythm: abnormal rhythm irregularly irregular GI: GI Palp: Yes Soft to palpation and No Tenderness to palpation present (GI) Skin: General skin exam: pallor Neuro: General: patient oriented x3, moves all extremities, no focal motor deficits and CN's II-XI intact bilaterally Speech: normal speech Extrem: General: normal to inspection Course Vital Signs Vital signs: Vital Signs Temperature 37.8 C H 04/03/20 09:12 Pulse Rate 98 04/03/20 09:12 Respiratory Rate 25 H 04/03/20 09:12 Blood Pressure 125/48 L 04/03/20 09:12 Pulse Oximetry 99 04/03/20 09:12 Temperature 37.3 C 04/03/20 13:02 Pulse Rate 76 04/03/20 14:00 Respiratory Rate 24 H 04/03/20 13:02 Blood Pressure 108/57 L 04/03/20 13:02 Pulse Oximetry 97 04/03/20 13:02 MDM - Weakness MDM Narrative Medical decision making narrative: EKG shows new atrial fibrill
--- NOTE | 2020-04-03 09:25 | ECG_ITS ---
Measurements Intervals [place] Rate: 87 P: [place]: 0 QRS: 48 QRSD: 158 T: 27 QT: 412 QTc: 496 Interpretive Statements ATRIAL FIBRILLATION RIGHT BUNDLE BRANCH BLOCK ABNORMAL ECG Electronically Signed On 04-03-2020 10:43:47 CDT by Maldonado Ferrell D.O.
[2020-04-03 09:42] LABS: Hemoglobin 7.2 g/dL (14.0-18.0); Immature Platelet Fraction Pct 2.5 % (0.9-11.2); Lymphocytes Percent Auto 95.2 % (18.3-44.2); Mean Corpuscular HGB Conc 34.6 g/dl (32-36); Mean Corpuscular Hemoglobin 34.1 pg (26-34); Mean Corpuscular Volume 98.6 fl (80-100); Neutrophils Percent Auto 4.8 % (45.5-73.1); Red Blood Count 2.11 M/mm3 (4.6-6.20)
[2020-04-03 09:45] LABS: Add Urine Microscopic? YES; Appearance Urine Cloudy (Clear); Bacteria Urine Trace /hpf; Bilirubin Urine Negative (Negative); Blood Urine 3+ (Negative); Color Urine Yellow (Yellow); Glucose Urine UA Negative (Negative); Ketones Urine 1+ mg/dL (Negative); Leukocyte Esterase Ur Negative LEU/UL (Negative); Mucus Urine Rare /lpf; Nitrate Urine Negative (Negative); Protein Urine 3+ mg/dL (Negative); Specific Grav Ur 1.017 (1.001-1.035); Squamous Epithelial Cell Urine Rare /hpf (Few); Urobilinogen Urine Negative mg/dL (<2.0); WBC Urine 0-3 /hpf
[2020-04-03 09:50] LABS: INR 1.4; Prothrombin Time 16.8 Seconds (11.1-14.7)
[2020-04-03 09:51] LABS: Partial Thromboplastin Time 32.4 SECONDS (22.3-36.8)
[2020-04-03 09:53] LABS: Lactic Acid Reflex 1.6 mmol/L (0.7-2.1)
[2020-04-03 09:54] LABS: White Blood Count 0.2 K/mm3 (4.5-10.0)
[2020-04-03 09:55] LABS: Hematocrit 20.8 % (42.0-52.0)
[2020-04-03 09:56] LABS: Platelet Count Result 12 k/mm3 (150-375)
[2020-04-03 09:57] LABS: Magnesium 2.1 mg/dL (1.6-2.3)
[2020-04-03 09:59] LABS: Alanine Aminotransferase 16 U/L (4-50); Albumin Level 3.3 g/dL (3.5-5.1); Alkaline Phosphatase 40 U/L (38-126); Anion Gap 7 mmol/L (8-16); Aspartate Amino Transferase 38 U/L (17-59); Bilirubin,Total 1.4 mg/dL (0.2-1.3); Blood Urea Nitrogen 24 mg/dL (9-20); Calcium 8.2 mg/dL (8.4-10.2); Carbon Dioxide 24 mmol/L (22-30); Chloride 106 mmol/L (98-107); Estimated CRCL calculation 50 ml/min; Estimated Glomerular Filt Rate 58; Glucose 191 mg/dL (75-110); Potassium 3.3 mmol/L (3.4-5.0); Sodium 137 mmol/L (137-145)
[2020-04-03 10:01] LABS: Ovalocytes 1+ (NORMAL); Platelet Estimate Decreased (Adequate)
[2020-04-03] MEDS: ONDANSETRON INJ 4 MG/2 ML VIAL IV PUSH (10:01)
[2020-04-03] MEDS: SODIUM CHLORIDE 0.9% IV 1,000 ML 999 ML IV CONT (10:01)
[2020-04-03 10:07] LABS: CRP 12.8 mg/dL (<1.0); Troponin I 0.177 ng/mL (0.000-0.034)
[2020-04-03 10:09] LABS: Base Excess ABG -2.1 mEq/l (+/-2.0); Fractional Inspired Oxygen 21 %; HCO3 ABG 20.4 mEq/l (22.0-26.0); Oxygen Content ABG 9.8 %vol (16.0-22.0); Oxyhemoglobin 94.1 % THb (90.0-100.0); PCO2 ABG 25.7 mmHg (35.0-45.0); PO2 FiO2 Ratio Arterial Blood 3.81 %
[2020-04-03 10:11] LABS: pH ABG 7.517 (7.350-7.450)
[2020-04-03 10:12] LABS: Device ROOM AIR; Site Drawn LEFT BRACHIAL; Total Hemoglobin 7.3 g/dL (12.0-18.0)
--- NOTE | 2020-04-03 12:45 | ADMGEN ---
This patient, Yuniel Jimenes, was admitted to Intensive Care Unit-5. Patient/family oriented to hospital policies and general routines including ID bracelet, bed and alarms, visiting hours, pain management, procedures, bathroom and other care routines, personal items, smoking policy, room service/diet, and visiting hours. Valuables list has been completed. Information on how to activate the Rapid Response Team has been discussed. Patient/Family are encouraged to report perceived risks to care and to ask questions if they do not understand what they are told or what they should do.
[2020-04-03] MEDS: LACTATED RINGERS 1,000 ML 150 ML IV CONT (13:20)
--- NOTE | 2020-04-03 16:45 | PDONCCN ---
HPI - Date of Consult Date/Time: 04/03/20 16:45 Requesting Physician: Colton Cardona MD Primary Care Provider: Rojelio Toney DO - Consult Narrative Reason for consult: Acute myeloid leukemia Narrative: Yuniel Jimenes is a 79 year old male This is a pleasant 79-year-old male who was recently diagnosed with acute myeloid leukemia and completed for sign of chemotherapy with Dacogen day 5. On March 20, 2020. He is currently taking venetoclax 100 mg orally. He is also taking broad-spectrum antimicrobial prophylaxis for neutropenia. He came into the hospital with generalized weakness and fatigue. He denies any fever but does have some chills. He denies any diarrhea and bleeding. He did have some urinary incontinence. He denies any cough shortness of breath and cough. Denies any chest pain. Labs showed WBC of 0.2 with 0 [place] [id number]. Review of Systems - Review of Systems All systems reviewed & are unremarkable except as noted in HPI and bel - Neurologic Reports weakness PMFSH Medical History: Medical History (Last Reviewed 04/03/20 @ 09:30 by Shay Mclean MD) AML (acute myelogenous leukemia) History of prostate cancer Other decreased white blood cell count Pancytopenia Tremor Unspecified glaucoma Onset Date: 01/11/19 Family History: Family History (Last Reviewed 04/03/20 @ 13:13 by Otto Hardin RN) Father Family history of malignant neoplasm Sibling Family history of malignant neoplasm Mother Patient's mother is Other Family history of malignant neoplasm of ovary - Social History Social History: Social History (Last Reviewed 04/03/20 @ 09:30 by Shay Mclean MD) Gender Identity: Gender identity (if verbalized by the patient): Male Alcohol Use: Alcohol intake: never Drinks per week: 0 Substance Use: Substance use: never Substance use type: does not use Others: Spiritual care concerns: No Smoking Status: Smoking status: Former smoker Tobacco type: cigarettes Smoking end date: 07/17/15 Smoking Pack-years: Smoking packs per day: 1 Smoking cigarettes per day: 20.0 Years smoked: 50 Smoking pack-years: 50.00 Meds Home Medications Medication Instructions Recorded Confirmed Type dorzolamide [Trusopt] 1 drp OPHTHALMIC (EYE) BID 01/22/20 04/03/20 History latanoprost [Xalatan] 1 drp OPHTHALMIC (EYE) HS 01/22/20 04/03/20 History ciprofloxacin HCl [Cipro] 500 mg BID 03/02/20 04/03/20 History posaconazole [Noxafil] 100 mg PO QAM 03/02/20 03/20/20 History valacyclovir 500 mg PO Q12H 03/02/20 04/03/20 History propranolol 20 mg tablet 20 mg PO BID #180 tablet 03/10/20 04/03/20 Rx allopurinol 300 mg PO DAILY 04/03/20 04/03/20 History fluconazole [Diflucan] 200 mg PO DAILY 04/03/20 04/03/20 History venetoclax [Venclexta] 100 mg PO HS 04/03/20 04/03/20 History Allergies Allergy/AdvReac Type Severity Reaction Status Date / Time No Known Allergies Allergy Verified 04/03/20 09:19 Results - Labs CBC & Chem 7: 04/03/20 09:29 04/03/20 09:29 Labs: Short CBC 04/03/20 Range/Units 09:29 WBC 0.2 L* (4.5-10.0) K/mm3 Hgb 7.2 L (14.0-18.0) g/dL Hct 20.8 L* (42.0-52.0) % Plt Count 12 L* (150-375) k/mm3 [facility] 04/03/20 09:29 Sodium 137 Potassium 3.3 L Chloride 106 Carbon Dioxide 24 BUN 24 H D Creatinine 1.20 Glucose 191 H Calcium 8.2 L Cardiac Enzymes 04/03/20 Range/Units 09:29 Troponin I 0.177 H* (0.000-0.034) ng/mL Liver Function 04/03/20 Range/Units 09:29 Total Bilirubin 1.4 H (0.2-1.3) mg/dL AST 38 (17-59) U/L ALT 16 (4-50) U/L Alkaline Phosphatase 40 (38-126) U/L Albumin 3.3 L (3.5-5.1) g/dL Urine 04/03/20 Range/Units 09:29 Urine Color Yellow (Yellow) Urine Appearance Cloudy H (Clear) Urine pH 6.0 (5.0-9.0) Ur Specific Mcroberts 1.017 (
[2020-04-03] MEDS: ACETAMINOPHEN 325 MG TABLET 650 MG PO (17:07)
--- NOTE | 2020-04-03 18:03 | PM.IMHP ---
H&P: HPI History of Present Illness Date/Time: 04/03/20 18:03 Chief complaint: Neutropenic fever/new onset a fib Narrative: Yuniel Jimenes is a 79 year old male With history of acute myeloid leukemia patient is seen by oncologist at the [facility] and has been treated and his last chemotherapy was on March 20 and currently he is taking venetoclax 100 mg orally. patient is under investigation for COVID-19 patient was seen but not examine and currently is quite somnolent unable to provide ROS or history most of the history is recorded from from emergency department record and after talking to his oncologist Dr. Queen, patient was brought to emergency department from home he is quite weak and fatigue and chronically leukopenia and currently on prophylactic antibiotic, his current white count is 0.2, discussed with the oncologist currently does not want to start the patient on growth factor this may and hence the activity leukemic cells. patient is started on broad-spectrum antibiotics with cefepime, vancomycin, antifungal fluconazole, antiviral acyclovir, will follow-up on the blood culture and will consult Dr. fuller for further recommendation, will continue to monitor the patient and further recommendation to Review of Systems Review of Systems: ROS unobtainable: Yes unobtainable due to medical condition PMFSH Past Medical History Medical History AML (acute myelogenous leukemia) History of prostate cancer Other decreased white blood cell count Pancytopenia Tremor Unspecified glaucoma (01/11/19) Family History Family History Father Family history of malignant neoplasm Sibling Family history of malignant neoplasm Mother Patient's mother is Other Family history of malignant neoplasm of ovary Social History Social History Smoking packs per day: 1 Smoking cigarettes per day: 20.0 Years smoked: 50 Smoking pack-years: 50.00 Smoking status: Former smoker Tobacco type: cigarettes Smoking end date: 07/17/15 Alcohol intake: never Drinks per week: 0 Substance use: never Substance use type: does not use Gender identity (if verbalized by the patient): Male Spiritual care concerns: No Meds Home Medications and Allergies Home Medications Medication Instructions Recorded Confirmed Type dorzolamide [Trusopt] 1 drp OPHTHALMIC (EYE) BID 01/22/20 04/03/20 History latanoprost [Xalatan] 1 drp OPHTHALMIC (EYE) HS 01/22/20 04/03/20 History ciprofloxacin HCl [Cipro] 500 mg BID 03/02/20 04/03/20 History posaconazole [Noxafil] 100 mg PO QAM 03/02/20 03/20/20 History valacyclovir 500 mg PO Q12H 03/02/20 04/03/20 History propranolol 20 mg tablet 20 mg PO BID #180 tablet 03/10/20 04/03/20 Rx allopurinol 300 mg PO DAILY 04/03/20 04/03/20 History fluconazole [Diflucan] 200 mg PO DAILY 04/03/20 04/03/20 History venetoclax [Venclexta] 100 mg PO HS 04/03/20 04/03/20 History Allergies Allergy/AdvReac Type Severity Reaction Status Date / Time No Known Allergies Allergy Verified 04/03/20 09:19 Vital Signs Vital Signs - 24 hr 04/03/20 09:12 04/03/20 09:17 04/03/20 10:34 Temperature 100.0 F H Pulse Rate 98 116 H 116 H Respiratory Rate 25 H 29 H Blood Pressure 125/48 L 111/56 L Pulse Oximetry 99 98 04/03/20 12:02 04/03/20 12:23 04/03/20 13:02 Temperature 99.2 F Pulse Rate 87 82 102 H Respiratory Rate 18 18 24 H Blood Pressure 101/56 L 104/50 L 108/57 L Pulse Oximetry 99 98 97 04/03/20 14:00 04/03/20 16:00 04/03/20 17:07 Temperature 101 F H 101 F H Pulse Rate 76 102 H Respiratory Rate 21 H Blood Pressure 120/53 L Pulse Oximetry 98 Exam Narrative: Exam Narrative: patient is seen but not examine outside glass door Const: General: comfortable and no acute distress JUNEMT: Saulo
[2020-04-03] MEDS: FLUCONAZOLE 150 MG TABLET PO (18:36)
[2020-04-03 21:38] LABS: SARS-CoV-2 RNA PCR Negative
--- NOTE | 2020-04-03 23:30 | PC.NURSE ---
PATIENT TRANSFERRED VIA HOSPITAL BED TO IMU 201 ON REVERSE ISOLATION. REPORT GIVEN TO MERT DIAZ.
[2020-04-04] VITALS (30 sets, daily range): BP systolic 96–123; BP diastolic 53–75; PULSE 102–133; RESP 16–20; TEMP 36.1–38.9; O2SAT 94–100; BMI 26.7
--- NOTE | 2020-04-04 00:26 | PC.NURSE ---
Addendum entered by Mayr Almeida RN 04/04/20 00:28: Pt placed in room 201 and placed on reverse isolation. Original Note: This patient, Yuniel Jimenes, was received from ICU-5 on 04/03/20 at 2335. Personal belongings list checked and signed. Patient/family oriented to unit policies and routines
[2020-04-04] MEDS: LACTATED RINGERS 1,000 ML 150 ML IV CONT (02:43)
[2020-04-04 04:35] LABS: Immature Platelet Fraction Pct 3.9 % (0.9-11.2); Lymphocytes Absolute Auto 0.21 K/mm3 (0.9-3.2); Lymphocytes Percent Auto 95.5 % (18.3-44.2); Mean Corpuscular HGB Conc 34.3 g/dl (32-36); Mean Corpuscular Hemoglobin 34.3 pg (26-34); Neutrophils Percent Auto 4.5 % (45.5-73.1); Nucleated Red Blood Cells Perc 9.1 % (0.0-0.2); Red Blood Count 2.04 M/mm3 (4.6-6.20); Red Cell Distribution Width 18.8 % (11.5-14.5)
[2020-04-04 04:47] LABS: Alanine Aminotransferase 19 U/L (4-50); Alkaline Phosphatase 40 U/L (38-126); Anion Gap 3 mmol/L (8-16); Aspartate Amino Transferase 32 U/L (17-59); Blood Urea Nitrogen 18 mg/dL (9-20); Calcium 7.9 mg/dL (8.4-10.2); Carbon Dioxide 27 mmol/L (22-30); Chloride 107 mmol/L (98-107); Estimated CRCL calculation 60 ml/min; Estimated Glomerular Filt Rate > 60; Glucose 140 mg/dL (75-110); Magnesium 2.3 mg/dL (1.6-2.3); Potassium 3.4 mmol/L (3.4-5.0); Sodium 137 mmol/L (137-145)
[2020-04-04 05:46] LABS: White Blood Count 0.2 K/mm3 (4.5-10.0)
[2020-04-04 05:47] LABS: Hematocrit 20.4 % (42.0-52.0); Platelet Count Result 13 k/mm3 (150-375)
[2020-04-04 05:48] LABS: Ovalocytes 1+ (NORMAL); Platelet Estimate Decreased (Adequate)
[2020-04-04] MEDS: allopurinoL 300 MG TABLET PO (11:48)
[2020-04-04] MEDS: LACTATED RINGERS 1,000 ML 75 ML IV CONT (11:54)
[2020-04-04] MEDS: POTASSIUM CHLORIDE 20 MEQ PACKET (FOR LIQUID) 40 MEQ PO (11:54)
--- NOTE | 2020-04-04 15:27 | PM.IMPN ---
Progress Note: A&P Assessment and Plan (1) Neutropenic fever: Code(s): D70.9 - Neutropenia, unspecified; R50.81 - Fever presenting with conditions classified elsewhere Status: Acute Assessment and Plan: 04/04/20 15:27 Yuniel Jimenes is a 79 year old male With history of acute myeloid leukemia patient is seen by oncologist at the [facility] and has been treated and his last chemotherapy was on March 20 and currently he is taking venetoclax 100 mg orally. patient is under investigation for COVID-19 patient was seen but not examine and currently is quite somnolent unable to provide ROS or history most of the history is recorded from from emergency department record and after talking to his oncologist Dr. Queen, patient was brought to emergency department from home he is quite weak and fatigue and chronically leukopenia and currently on prophylactic antibiotic, his current white count is 0.2, discussed with the oncologist currently does not want to start the patient on growth factor this may and hence the activity leukemic cells. patient is started on broad-spectrum antibiotics with cefepime, vancomycin, antifungal fluconazole, antiviral acyclovir, we have consulted Dr. Roy for further recommendatiosn, Today 04/04 patient is still quite somnolent unable to provide detailed review of symptom, patient hemoglobin is 7 will transfuse 2 unit pack RBC, platelets slightly better today to 13,000, patient is clinically stable will continue present on further recommendation to follow. 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 patient is under investigation for COVID-19 patient was seen but not examine and currently is quite somnolent unable to provide ROS or history most of the history is recorded from from emergency department record and after talking to his oncologist Dr. Queen, patient was brought to emergency department from home he is quite weak and fatigue and chronically leukopenia and currently on prophylactic antibiotic, his current white count is 0.2, discussed with the oncologist currently does not want to start the patient on growth factor this may and hence the activity leukemic cells. patient is started on broad-spectrum antibiotics with cefepime, vancomycin, antifungal fluconazole, antiviral acyclovir, we have consulted Dr. Roy for further recommendatiosn, Today 04/04 patient is still quite somnolent unable to provide detailed review of symptom, patient hemoglobin is 7 will transfuse 2 unit pack RBC, platelets slightly better today to 13,000, patient is clinically stable will continue present on further recommendation to follow. Review of Systems Review of Systems: ROS unobtainable: Yes unobtainable due to medical condition Exam Const: General: comfortable and no acute distress HENMT: General nose exam: Normal nares present Eyes: Sclera: sclerae normal Neck: Neck: supple Resp: Effort & Inspection: normal respiratory effort Auscultation: clear to auscultation bilaterally Cardio: Rate: regular rate Rhythm: regular rhythm GI: Auscultation: normal bowel sounds Skin: Other: Pale Neuro: Sensory Exam: nor
[2020-04-04] MEDS: ACETAMINOPHEN 325 MG TABLET 650 MG PO (16:40)
[2020-04-04] MEDS: TUBING, BLOOD PLUM PUMP TUBING 1 EACH XX (17:17)
[2020-04-04] MEDS: SODIUM CHLORIDE 0.9% IV 250 ML 30 ML IV CONT (17:17)
[2020-04-04] MEDS: DORZOLAMIDE HCL 2% OPHTH DROPS 1 DROP EACH EYE (17:20)
[2020-04-04] MEDS: FLUCONAZOLE 100 MG TABLET PO (17:20)
[2020-04-04] MEDS: PROPRANOLOL HCL 20 MG TABLET PO (17:20)
[2020-04-04] MEDS: FUROSEMIDE INJ 40 MG/4 ML VIAL 20 MG IV PUSH (19:20)
[2020-04-04] MEDS: LATANOPROST 0.005% OP SOLN 2.5 ML BTL 1 DROP EACH EYE (20:25)
[2020-04-04] MEDS: CENTRAL LINE FLUSH 10 ML IV PUSH (23:30)
[2020-04-05] VITALS (16 sets, daily range): BP systolic 101–117; BP diastolic 57–72; PULSE 91–121; RESP 16–22; TEMP 36.6–37.1; O2SAT 96–100; BMI 10.0
[2020-04-05] MEDS: LACTATED RINGERS 1,000 ML 75 ML IV CONT ×2 (05:51→21:13)
[2020-04-05] MEDS: CENTRAL LINE FLUSH 10 ML IV PUSH ×3 (05:51→21:57)
[2020-04-05 06:14] LABS: Immature Platelet Fraction Pct 4.7 % (0.9-11.2); Lymphocytes Absolute Auto 0.27 K/mm3 (0.9-3.2); Lymphocytes Percent Auto 96.4 % (18.3-44.2); Mean Corpuscular HGB Conc 34.8 g/dl (32-36); Mean Corpuscular Hemoglobin 32.8 pg (26-34); Mean Corpuscular Volume 94.3 fl (80-100); Neutrophils Percent Auto 3.6 % (45.5-73.1); Red Blood Count 2.44 M/mm3 (4.6-6.20); Red Cell Distribution Width 18.6 % (11.5-14.5)
[2020-04-05 06:21] LABS: Platelet Count Result 13 k/mm3 (150-375); White Blood Count 0.3 K/mm3 (4.5-10.0)
[2020-04-05 06:37] LABS: Alanine Aminotransferase 28 U/L (4-50); Albumin Level 2.5 g/dL (3.5-5.1); Alkaline Phosphatase 39 U/L (38-126); Anion Gap 2 mmol/L (8-16); Aspartate Amino Transferase 30 U/L (17-59); Bilirubin,Total 1.4 mg/dL (0.2-1.3); Blood Urea Nitrogen 21 mg/dL (9-20); Calcium 7.8 mg/dL (8.4-10.2); Carbon Dioxide 28 mmol/L (22-30); Chloride 106 mmol/L (98-107); Estimated CRCL calculation 64 ml/min; Estimated Glomerular Filt Rate > 60; Glucose 165 mg/dL (75-110); Potassium 3.6 mmol/L (3.4-5.0); Sodium 136 mmol/L (137-145)
[2020-04-05] MEDS: PROPRANOLOL HCL 20 MG TABLET PO (08:47)
[2020-04-05] MEDS: DORZOLAMIDE HCL 2% OPHTH DROPS 1 DROP EACH EYE ×2 (08:47→17:23)
[2020-04-05] MEDS: allopurinoL 300 MG TABLET PO (08:48)
--- NOTE | 2020-04-05 09:38 | WPDINFPN2 ---
Progress Note: A&P Assessment and Plan (1) Neutropenic fever: Code(s): D70.9 - Neutropenia, unspecified; R50.81 - Fever presenting with conditions classified elsewhere Status: Acute Assessment and Plan: neutropenic fever REC Cefepime #2, vanc #3, suppressive valacy. and fluconazole Subjective Date/time seen: 04/05/20 09:38 Objective Data Vital Signs Vital Signs: Vital Signs - 24 hr 04/04/20 10:00 04/04/20 11:53 04/04/20 12:00 Temperature 36.4 C Pulse Rate 127 H 126 H 128 H Respiratory Rate 16 Blood Pressure 96/55 L Pulse Oximetry 99 04/04/20 12:07 04/04/20 14:00 04/04/20 16:00 Temperature 37.2 C Pulse Rate 133 H 121 H Respiratory Rate 20 Blood Pressure 121/66 110/54 L Pulse Oximetry 97 04/04/20 16:36 04/04/20 16:40 04/04/20 16:55 Temperature 38.9 C H 38.8 C H 38.4 C H Pulse Rate 128 H 127 H Respiratory Rate 20 18 Blood Pressure 115/68 114/56 L Pulse Oximetry 97 98 04/04/20 17:20 04/04/20 17:46 04/04/20 17:55 Temperature 38.7 C H 37.5 C Pulse Rate 121 H 120 H Respiratory Rate 20 Blood Pressure 111/68 Pulse Oximetry 98 04/04/20 18:00 04/04/20 18:45 04/04/20 19:36 Temperature 37.0 C 36.5 C Pulse Rate 115 H 107 H 105 H Respiratory Rate 20 18 Blood Pressure 123/73 117/75 Pulse Oximetry 99 99 04/04/20 20:00 04/04/20 20:16 04/04/20 20:18 Temperature 36.4 C 36.6 C Pulse Rate 119 H 102 H 110 H Respiratory Rate 20 20 20 Blood Pressure 109/73 120/59 L Pulse Oximetry 100 100 99 04/04/20 20:32 04/04/20 21:32 04/04/20 21:56 Temperature 36.6 C 36.1 C L Pulse Rate 106 H 108 H 111 H Respiratory Rate 20 18 Blood Pressure 115/66 108/70 Pulse Oximetry 100 98 04/04/20 22:32 04/04/20 23:32 04/05/20 00:00 Temperature 36.6 C 36.5 C Pulse Rate 109 H 105 H 98 Respiratory Rate 18 20 16 Blood Pressure 108/58 L 107/68 Pulse Oximetry 97 100 98 04/05/20 00:17 04/05/20 01:18 04/05/20 04:00 Temperature 36.7 C 36.8 C Pulse Rate 98 109 H 110 H Respiratory Rate 16 18 Blood Pressure 113/72 107/72 Pulse Oximetry 98 97 04/05/20 06:00 04/05/20 08:00 04/05/20 08:47 Temperature 37.1 C Pulse Rate 109 H 115 H 111 H Respiratory Rate 20 Blood Pressure 117/71 Pulse Oximetry 97 Intake/Output Intake/Output: Intake & Output 04/02/20 04/03/20 04/04/20 04/05/20 23:59 23:59 23:59 23:59 Intake Total 3000 1875 1585 Output Total 1000 1150 Balance 1999 725 1585 Meds/Results Medications: Active Medications Generic Name Dose Route Start Last Admin Trade Name Freq PRN Reason Stop Dose Admin Acetaminophen 650 mg 04/03/20 16:50 04/04/20 16:40 Tylenol Tablet PO 650 mg Q6H PRN Administration Mild Pain (1-3) or Fever Allopurinol 300 mg 04/05/20 09:00 04/05/20 08:48 Zyloprim PO 300 mg DAILY JUAN LUIS Administration Dorzolamide HCl 1 drop 04/04/20 17:00 04/05/20 08:47 Trusopt EACH EYE 1 drop BID JUAN LUIS Administration Fluconazole 100 mg 04/04/20 17:00 04/04/20 17:20 Diflucan Tablet PO 100 mg DAILY@1700 JUAN LUIS Administration Heparin Sodium (Beef Lung) 50 units 04/05/20 09:00 04/05/20 08:43 Heparin Flush 50 Units/5 Ml IV PUSH 50 units QAM JUAN LUIS Administration Heparin Sodium (Beef Lung) 50 units 04/04/20 15:01 Heparin Flush 50 Units/5 Ml IV PUSH PRN PRN after intermittent infusion Heparin Sodium (Beef Lung) 50 units 04/04/20 15:01 04/05/20 05:52 Heparin Flush 50 Units/5 Ml IV PUSH 50 units PRN PRN Administration after blood draws Heparin Sodium (Porcine) 500 units 04/04/20 15:01 Heparin Sod Flush 100 Units/Ml IV PUSH PRN PRN see comments below Heparin Sodium (Porcine) 500 units 04/05/20 07:04 Heparin Sod Flush 100 Units/Ml IV PUSH PRN PRN see comments below Vancomycin HCl 1,250 mg in 250 mls @ 200 mls/hr 04/04/20 12:00 04/04/20 14:30 Vancomycin 1,250 Mg/D5w 250 Ml IVPB 200 mls/hr Q24H JUAN LUIS Admini
[2020-04-05] MEDS: valACYclovir HCL 500 MG TABLET PO ×2 (10:26→21:16)
--- NOTE | 2020-04-05 10:38 | CONS_ITS ---
DATE OF CONSULTATION: 04/05/2020 REASON FOR CONSULTATION: Neutropenic fever. HISTORY OF PRESENT ILLNESS: A 79-year-old male, recently found to have AML. He had a Port-A-Cath placed about 2 weeks ago and has been started on chemotherapy first round. His medication regimen is outlined by Dr. Queen. He began feeling ill 5 days before admission with marked weakness and lassitude. He reports getting 2 units of packed red cells as an outpatient 3 days before admission, which did not help his symptoms. He then developed a single episode of nausea and vomiting, some anorexia and progressive weakness. He then presented to the emergency room on the and was admitted. He notes of no fever, chills, or sweats at home. The Port-A-Cath is in active use. His temperature on admission was 37.8 and deonte up to 38.9 yesterday afternoon. The patient takes suppressive valacyclovir, but was changed to IV acyclovir by Dr. Queen. He has also been given vancomycin, now day 3. He did receive a single dose of cefepime in the emergency room, but this is not continued until I ordered yesterday. No events here in the hospital. The patient denies any other recent antimicrobial use. No further nausea, vomiting. ALLERGIES: NONE KNOWN. HABITS: He quit smoking a number of years ago and no alcohol. PRESENT MEDICATIONS: No ongoing immunosuppressants. FAMILY HISTORY: Not pertinent to his present illness. SOCIAL HISTORY: He is , retired, lives locally. PAST MEDICAL HISTORY: Port-A-Cath as above. No other implants and no other prior surgeries. He has a history of prostate cancer and benign tremor. REVIEW OF SYSTEMS: No urologic symptoms whatsoever prior to admission, however, in the emergency room, he was unable to void and a Zurita catheter was placed and remains in place now. He has not developed any voiding or bladder symptoms in the interim. He did have some dyspnea prior to admission, now fully resolved with additional blood transfusion. Easy bruisability. 14-point review is otherwise negative. PHYSICAL EXAMINATION: GENERAL: This is an elderly male, who appears his actual age. No acute distress. VITAL SIGNS: T-max as above, 117/71, 20, 115, 97% room air. SKIN: Not pathologic appearing ecchymoses over his extremities. No rashes. Skin is pale, warm and dry. EENT: The teeth are in good repair and no sign of dental infection with no thrush, no ulcerations. The oropharynx normal. Pupils equal, round, reactive to light. Extraocular movements are normal. No paranasal sinus erythema, edema or tenderness. No conjunctival injection. No discharge. HEAD: Atraumatic and nontender. CHEST: He has a left infraclavicular Port-A-Cath in place, which is accessed. No skin breakdown, fluctuance, tenderness. LUNGS: Clear to auscultation and percussion. BACK: No CVAT. CARDIAC: Regular rate and rhythm. Normal S1, S2. No murmur, gallop, or rub. ABDOMEN: No hepatosplenomegaly. No masses. He has normal bowel sounds. Nondistended. No tenderness. : Zurita catheter in place draining clear yellow urine. No sediment, no blood. MUSCULOSKELETAL: No active joint inflammation and normal range of motion. NEUROLOGIC: Awake, alert, oriented, and appropriate. EXTREMITIES: Without clubbing, cyanosis, or edema. No venous varicosities. LABORATORY DATA: Blood cultures 2 sets on admission, no growth so far. This is after fccg-ryf-k-half days. White count initially 700, now 300, hemoglobin 8.0, platelets are 13, similar to previous values. Differential with 4% PMNs, 96% lymphocytes. Blood gases 7.52, 26, 80, 20, 97% on room air. Electrolytes normal other than a sodium 136, BUN 21, creatinine 0.9, glucose 165, was 106 on the 15th, bilirubin 1.4 from 1.0, albumin 2.5. Liver function tests ot
--- NOTE | 2020-04-05 11:20 | PM.CNCAR ---
Assessment and Plan Assessment and plan (1) Atrial fibrillation: Qualifiers: Atrial fibrillation type: unspecified Qualified Code(s): I48.91 - Unspecified atrial fibrillation Code(s): I48.91 - Unspecified atrial fibrillation Status: Acute Assessment and Plan: Presents with atrial fibrillation with rapid ventricular response currently heart rate reasonably controlled on propranolol 20 mg twice daily he was taking as an outpatient for tremors. Will change to metoprolol 25 mg q.8 hours. patient is not an anticoagulation candidate given pancytopenia and severe thrombocytopenia as well as underlying coagulopathy INR 1.4 [address] him at excessive bleeding risk. Therefore, heart rate control strategy is best option at this time. He is tolerating this well so far. Continue telemetry. DVT prophylaxis SCDs. (2) Elevated troponin: Code(s): R79.89 - Other specified abnormal findings of blood chemistry Status: Acute Assessment and Plan: At presentation 0.177, no anginal symptoms. Repeat troponin. Repeat 12 lead EKG. 2D echocardiogram to assess LV function, wall motion abnormalities, valve pathology. (3) Pancytopenia: Code(s): D61.818 - Other pancytopenia Status: Acute Assessment and Plan: Continue to monitor closely. Plans for transfusion as needed. Status post transfusion 3 days prior to admission and 2 U PRBC's 04/04/20. Severe thrombocytopenia and neutropenia. Remains on neutropenic precautions. 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 Recent diagnosis, completed day 5 Dacogen chemotherapy. (5) Neutropenic fever: Code(s): D70.9 - Neutropenia, unspecified; R50.81 - Fever presenting with conditions classified elsewhere Status: Acute Assessment and Plan: Per oncology and Infectious Disease. Broad-spectrum antibiotics. Workup underway. History of Present Illness History of Present Illness Consult date/time: date of service: 04/05/20 11:20 Cardiology consultation at request of Dr. Risa Palemr Hospitalist Service for my opinion regarding atrial fibrillation with RVR. Requesting physician: Feng Queen MD Consult reason: atrial fibrillation Reason For Visit: Neutropenic fever/new onset a fib Narrative: Patient is a very pleasant 79-year-old male with recent diagnosis of acute myeloid leukemia, essential tremor, h/o prostate cancer followed by Dr. Queen (Oncology) who was started on Dacogen currently on Venetoclax Patient presented with several-day history of weakness, fatigue, decreased appetite, chills with documented fever, urinary incontinence but no chest pain, bleeding or shortness of breath. Patient was seen to be pancytopenic and low absolute neutrophil count on neutropenic precautions. he was transfused as an outpatient on March 31 and again April 04 2 units PRBC's. At presentation he was found to be in atrial fibrillation with fair heart rate control overall with intermittent RVR. He has been maintained on propranolol 20 mg twice daily since admission April 03. We were consulted today for evaluation of his atrial fibrillation which he states is new. He denies palpitations, new shortness of breath or chest pain. He has no prior knowledge of atrial fibrillation. Infectious Disease has been consulted. Troponin I checked at admission for unclear reasons and was 0.177. This has not been repeated. Review of Systems Review of Systems: All systems reviewed & are unremarkable except as noted in HPI and below Constitutional: Constitutional: Reports as per HPI, Reports no additional constitutional complaints, Reports chills, Reports fatigue, Reports lethargy and Reports weakness Eyes: Eyes: Reports as per HPI and Reports no additional eye complaints EN
--- NOTE | 2020-04-05 11:38 | ECG_ITS ---
Measurements Intervals [place] Rate: 100 P: MD: 0 QRS: 57 QRSD: 146 T: 35 QT: 369 QTc: 477 Interpretive Statements ATRIAL FIBRILLATION WITH RAPID VENTRICULAR RESPONSE RIGHT BUNDLE BRANCH BLOCK BASELINE WANDER- AVF, V4-V6 ABNORMAL ECG Electronically Signed On 04-05-2020 14:59:16 CDT by Maldonado Ferrell D.O.
[2020-04-05 12:38] LABS: Troponin I 0.026 ng/mL (0.000-0.034)
[2020-04-05] MEDS: METOPROLOL TARTRATE 25 MG TABLET PO ×2 (13:51→21:16)
--- NOTE | 2020-04-05 16:13 | PM.IMPN ---
Progress Note: A&P Assessment and Plan (1) Neutropenic fever: Code(s): D70.9 - Neutropenia, unspecified; R50.81 - Fever presenting with conditions classified elsewhere Status: Acute Assessment and Plan: 04/05/20 16:13 Yuniel Jimenes is a 79 year old male With history of acute myeloid leukemia patient is seen by oncologist at the [facility] and has been treated and his last chemotherapy was on March 20 and currently he is taking venetoclax 100 mg orally. patient is under investigation for COVID-19 patient was seen but not examine and currently is quite somnolent unable to provide ROS or history most of the history is recorded from from emergency department record and after talking to his oncologist Dr. Queen, patient was brought to emergency department from home he is quite weak and fatigue and chronically leukopenia and currently on prophylactic antibiotic, his current white count is 0.2, discussed with the oncologist currently does not want to start the patient on growth factor this may and hence the activity leukemic cells. patient is started on broad-spectrum antibiotics with cefepime, vancomycin, antifungal fluconazole, antiviral acyclovir, we have consulted Dr. Fuller for further recommendatiosn, Today 04/04 patient is still quite somnolent unable to provide detailed review of symptom, patient hemoglobin is 7 will transfuse 2 unit pack RBC, platelets slightly better today to 13,000, today on 04/05 patient HH is stable and there is slightly increase in WBC to 0.3, his blood culture is growing Streptococcus mitis group currently patient is on cefepime and vancomycinhe, will follow-up on sensitivity patient be seen by Dr. fuller tomorrow and further recommendation to follow, He is more alert and awake, his is present in the room, patient denies any fever or chills, patient is clinically stable will continue present management and further recommendation to follow. (2) Atrial fibrillation: Qualifiers: Atrial fibrillation type: unspecified Qualified Code(s): I48.91 - Unspecified atrial fibrillation Code(s): I48.91 - Unspecified atrial fibrillation Status: Acute Assessment and Plan: rate is high normal most likely secondary to fever stress will continue to monitor (3) AML (acute myelogenous leukemia): Code(s): C92.00 - Acute myeloblastic leukemia, not having achieved remission Status: Acute Assessment and Plan: patient seen by oncologist and shipping agent plan is above Subjective Date/time seen: 04/05/20 16:13 Yuniel Jimenes is a 79 year old male With history of acute myeloid leukemia patient is seen by oncologist at the [facility] and has been treated and his last chemotherapy was on March 20 and currently he is taking venetoclax 100 mg orally. patient is under investigation for COVID-19 patient was seen but not examine and currently is quite somnolent unable to provide ROS or history most of the history is recorded from from emergency department record and after talking to his oncologist Dr. Queen, patient was brought to emergency department from home he is quite weak and fatigue and chronically leukopenia and currently on prophylactic antibiotic, his current white count is 0.2, discussed with the oncologist currently does not want to start the patient on growth factor this may and hence the activity leukemic cells. patient is started on broad-spectrum antibiotics with cefepime, vancomycin, antifungal fluconazole, antiviral acyclovir, we have consulted Dr. Fuller for further recommendatiosn, Today 04/04 patient is still quite somnolent unable to provide detailed review of symptom, patient hemoglobin is 7 will transfuse 2 unit pack RBC, platelets slightly better today to 13,000, today on 04/05 patient HH is stable and there is slightly increase in WBC to 0.3, his blood culture is growing Streptococcus mitis group currently patient is on cefepime and vancomycinjaleel w
[2020-04-05] MEDS: FLUCONAZOLE 100 MG TABLET PO (17:23)
--- NOTE | 2020-04-05 18:36 | PHAR ---
The patient's home med of Veneclexta 100mg has been verified.
[2020-04-05] MEDS: LATANOPROST 0.005% OP SOLN 2.5 ML BTL 1 DROP EACH EYE (21:15)
[2020-04-06] VITALS (14 sets, daily range): BP systolic 95–117; BP diastolic 51–72; PULSE 83–136; RESP 16–22; TEMP 36.4–37.2; O2SAT 20–98
[2020-04-06] MEDS: METOPROLOL TARTRATE 25 MG TABLET PO ×3 (05:20→21:45)
[2020-04-06] MEDS: CENTRAL LINE FLUSH 10 ML IV PUSH ×4 (05:31→22:59)
[2020-04-06] MEDS: CENTRAL LINE FLUSH 20 ML IV PUSH (05:32)
[2020-04-06 05:42] LABS: Hemoglobin 7.4 g/dL (14.0-18.0); Immature Platelet Fraction Pct 4.4 % (0.9-11.2); Lymphocytes Absolute Auto 0.44 K/mm3 (0.9-3.2); Lymphocytes Percent Auto 95.7 % (18.3-44.2); Mean Corpuscular HGB Conc 35.6 g/dl (32-36); Mean Corpuscular Hemoglobin 33.8 pg (26-34); Monocytes Percent Auto 2.2 % (2.6-8.5); Neutrophils Percent Auto 2.1 % (45.5-73.1); Nucleated Red Blood Cells Perc 6.5 % (0.0-0.2); Red Blood Count 2.19 M/mm3 (4.6-6.20); Red Cell Distribution Width 18.7 % (11.5-14.5)
[2020-04-06 05:45] LABS: Alanine Aminotransferase 28 U/L (4-50); Albumin Level 2.3 g/dL (3.5-5.1); Alkaline Phosphatase 46 U/L (38-126); Anion Gap 3 mmol/L (8-16); Aspartate Amino Transferase 24 U/L (17-59); Bilirubin,Total 1.1 mg/dL (0.2-1.3); Blood Urea Nitrogen 16 mg/dL (9-20); Calcium 7.5 mg/dL (8.4-10.2); Carbon Dioxide 29 mmol/L (22-30); Chloride 101 mmol/L (98-107); Estimated CRCL calculation 81 ml/min; Estimated Glomerular Filt Rate > 60; Glucose 152 mg/dL (75-110); Sodium 133 mmol/L (137-145)
[2020-04-06 05:53] LABS: Hematocrit 20.8 % (42.0-52.0); Platelet Count Result 15 k/mm3 (150-375); White Blood Count 0.5 K/mm3 (4.5-10.0)
[2020-04-06 05:54] LABS: Platelet Estimate Decreased (Adequate)
[2020-04-06 05:55] LABS: Hypochromasia 2+ (NORMAL)
--- NOTE | 2020-04-06 07:44 | P.CDI_ITS ---
CDI Query Clarification Request 1) Two blood cultures growing Steptococcus Mitis group Please clarify if there is a possible corresponding diagnosis for above finding: * Sepsis * Bacteremia * Contaminate * Unable to determine 2)-04/03 WBC 0.2, Hgb 7.2, Hct 20.8, platelet ct 12 -2 units of blood transfused. -04/06 WBC 0.5, Hgb 7.4, Hct 20.8, platelet ct 15 - Pancytopenia documented by Dr Ba As the attending, if you agree with Dr Ba's diagnosis of pancytopenia, please add to your problem list. <Rebecca Mendoza RN - Last Filed: 04/06/20 07:56>
[2020-04-06] MEDS: DORZOLAMIDE HCL 2% OPHTH DROPS 1 DROP EACH EYE ×2 (08:14→17:28)
[2020-04-06] MEDS: valACYclovir HCL 500 MG TABLET PO ×2 (08:14→21:45)
[2020-04-06] MEDS: allopurinoL 300 MG TABLET PO (08:14)
--- NOTE | 2020-04-06 08:41 | PM.PNCARD ---
Progress Note: A&P Additional Plan 79-year-old man with: Atrial fibrillation of unknown chronicity with which he is asymptomatic. Rate is well controlled with metoprolol currently being prescribed at 75 mg daily. Agree with Dr. Ba's assessment that the patient is not a candidate for anticoagulation. Will continue to follow with you while he is in the hospital. Positive blood cultures are noted Geronimo Monique MD [facility] Subjective Date/time seen: 04/06/20 08:41 Interval history: Follow-up visit in this 79-year-old man with pancytopenia following chemotherapy. He has atrial fibrillation of unknown chronicity which is asymptomatic. Pursuing a rate control strategy with metoprolol heart rate seems well controlled on telemetry. Patient is not a candidate for systemic anticoagulation Exam Const: General: comfortable and no acute distress Other: Elidel elderly gentleman seated in bed eating breakfast appears to be comfortable no cardiovascular complaints HENMT: Mouth: Yes moist mucous membranes Eyes: Sclera: sclerae normal Pupils: Equal, round and reactive pupils present Neck: Neck: supple and no JVD Thyroid: thyroid normal Other: Normal carotid upstrokes no bruits are audible Resp: Effort & Inspection: normal respiratory effort Auscultation: clear to auscultation bilaterally Cardio: Rhythm: abnormal rhythm irregularly irregular GI: Auscultation: normal bowel sounds Skin: General skin exam: normal color Neuro: Cognition (Neuro): normal cognition Objective Data Vital Signs Vital Signs: Vital Signs - 24 hr 04/05/20 08:47 04/05/20 10:00 04/05/20 12:00 Temperature 36.8 C Pulse Rate 111 H 94 101 H Respiratory Rate 16 Blood Pressure 101/57 L Pulse Oximetry 100 04/05/20 13:51 04/05/20 14:00 04/05/20 16:00 Temperature Pulse Rate 91 97 91 Respiratory Rate Blood Pressure Pulse Oximetry 04/05/20 16:27 04/05/20 18:00 04/05/20 20:00 Temperature 37.1 C 36.6 C Pulse Rate 91 108 H 100 Respiratory Rate 20 22 H Blood Pressure 105/67 108/60 Pulse Oximetry 96 97 04/05/20 21:55 04/06/20 00:00 04/06/20 02:00 Temperature 36.9 C Pulse Rate 95 98 102 H Respiratory Rate 22 H Blood Pressure 100/72 Pulse Oximetry 96 04/06/20 03:36 04/06/20 05:39 Temperature 37.2 C Pulse Rate 105 H 101 H Respiratory Rate 22 H Blood Pressure 111/70 Pulse Oximetry 20 L Intake/Output Intake/Output: Intake & Output 04/03/20 04/04/20 04/05/20 04/06/20 23:59 23:59 23:59 23:59 Intake Total 3000 1875 3185 800 Output Total 1000 1150 650 750 Balance 1999 725 5298 50 Meds/Results Medications: Active Medications Generic Name Dose Route Start Last Admin Trade Name Freq PRN Reason Stop Dose Admin Acetaminophen 650 mg 04/03/20 16:50 04/04/20 16:40 Tylenol Tablet PO 650 mg Q6H PRN Administration Mild Pain (1-3) or Fever Allopurinol 300 mg 04/05/20 09:00 04/06/20 08:14 Zyloprim PO 300 mg DAILY JUAN LUIS Administration Dorzolamide HCl 1 drop 04/04/20 17:00 04/06/20 08:14 Trusopt EACH EYE 1 drop BID JUAN LUIS Administration Fluconazole 100 mg 04/04/20 17:00 04/05/20 17:23 Diflucan Tablet PO 100 mg DAILY@1700 JUAN LUIS Administration Heparin Sodium (Beef Lung) 50 units 04/05/20 09:00 04/06/20 08:14 Heparin Flush 50 Units/5 Ml IV PUSH Not Given QAM JUAN LUIS Heparin Sodium (Beef Lung) 50 units 04/04/20 15:01 Heparin Flush 50 Units/5 Ml IV PUSH PRN PRN after intermittent infusion Heparin Sodium (Beef Lung) 50 units 04/04/20 15:01 04/05/20 05:52 Heparin Flush 50 Units/5 Ml IV PUSH 50 units PRN PRN Administration after blood draws Heparin Sodium (Porcine) 500 units 04/04/20 15:01 Heparin Sod Flush 100 Units/Ml IV PUSH PRN PRN see comments below Heparin Sodium (Porcine) 500 units 04/05/20 07:04 Heparin Sod Flush 100 Units/Ml IV PUSH PRN PRN see comments below Cefepime HCl
[2020-04-06] MEDS: POTASSIUM CHLORIDE 20 MEQ TABLET 40 MEQ PO (11:31)
--- NOTE | 2020-04-06 11:38 | ECHO_ITS ---
Patient Info Name: Yuniel Jimenes Age: 79 years : 1940 Gender: Male Ht: 72 in Wt: 199 lbs BSA: 2.15 m2 HR: 102 bpm BP: 117 / 62 mmHg Heart Rhythm: Atrial Fibrillation Technical Quality: Fair Exam Date: 04/06/2020 11:54 AM Exam Location: [facility] Patient Status: Inpatient Admit Date: 04/03/2020 Staff Ordering Physician: Yann Ba MD Lining Baster: Татьяна Pillai RDCS Attending Provider: Ajay Cardona MD Referring Physician: Jesenia NAPOLES; Exam Type: CA echo doppler color flow Study Info Indications I48.0 - Paroxysmal atrial fibrillation Complete two-dimensional, color flow and Doppler transthoracic echocardiogram is performed. Strain analysis performed. Summary 1. Complete two-dimensional, color flow and Doppler transthoracic echocardiogram is performed. 2. Left ventricular chamber dimension is normal. 3. Left ventricular systolic function is normal, estimated at 55-60%. 4. There is mildly increased left ventricular wall thickness. 5. Left ventricular septal wall motion is abnormal with septal motion related to bundle branch block. 6. Global longitudinal strain is abnormal at -15 %. 7. Left atrial chamber dimension is moderately enlarged. 8. Right atrial chamber dimension is mildly enlarged. 9. There is mild aortic valve calcification. 10. There is mild mitral valve regurgitation. 11. There is mild tricuspid valve regurgitation. 12. Moderate pulmonary hypertension, estimated pulmonary arterial systolic pressure is 47 mmHg. Left Ventricle Left ventricular chamber dimension is normal. Left ventricular systolic function is normal, estimated at 55-60%. There is mildly increased left ventricular wall thickness. Left ventricular septal wall motion is abnormal with septal motion related to bundle branch block. Global longitudinal strain is abnormal at -15 %. Right Ventricle Right ventricular chamber dimension is normal. Right ventricular systolic function is normal. Left Atria Left atrial chamber dimension is moderately enlarged. Right Atria Right atrial chamber dimension is mildly enlarged. Atrial Septum Intact interatrial septum visualized by color flow imaging. Aortic Valve The aortic valve is probable trileaflet. There is no aortic valve stenosis. There is trace aortic valve regurgitation. There is mild aortic valve calcification. Pulmonic Valve The pulmonic valve is normal. There is no pulmonic valve stenosis. There is trace pulmonic regurgitation. Mitral Valve The mitral valve has calcified annulus. There is no mitral valve stenosis. There is mild mitral valve regurgitation. Tricuspid Valve The tricuspid valve leaflets are normal. There is no significant tricuspid valve stenosis. There is mild tricuspid valve regurgitation. Moderate pulmonary hypertension, estimated pulmonary arterial systolic pressure is 47 mmHg. Pericardium/Pleural The pericardium appears normal. There is trivial pericardial effusion. Inferior Vena Cava Dilated inferior vena cava with >50% collapse upon inspiration consistent with elevated right atrial pressure, 10 mmHg. Left Ventricular Outflow Tract Name Value Normal LVOT 2D LVOT Diameter
[2020-04-06] MEDS: dilTIAZem HCL 60 MG TABLET PO ×3 (12:25→23:00)
[2020-04-06] MEDS: LACTATED RINGERS 1,000 ML 75 ML IV CONT (13:37)
--- NOTE | 2020-04-06 14:08 | WPDINFPN2 ---
Progress Note: A&P Assessment and Plan (1) Neutropenic fever: Code(s): D70.9 - Neutropenia, unspecified; R50.81 - Fever presenting with conditions classified elsewhere Status: Acute Assessment and Plan: 1. Neutropenic fever, temperature abated. I think that this is due to S mitis bacteremia, respiratory tract or oral 2. CNSS bacteremia, contaminant suspected despite presence of Port 3. AML, chemo initiated REC Cefepime #3, change to Ctx #1. Stop vanc #4. Suppressive valacy. and fluconazole. Will need several days more IV therapy Subjective Date/time seen: 04/06/20 14:08 Interval history: sleeping no distress Exam Narrative: Exam Narrative: afbrile Const: General: no acute distress Resp: Effort & Inspection: normal respiratory effort Auscultation: clear to auscultation bilaterally Cardio: Rate: regular rate Rhythm: regular rhythm Heart sounds: no murmurs GI: Inspection: non-distended Skin: General skin exam: normal color and no rashes or lesions noted Other: port site normal Objective Data Vital Signs Vital Signs: Vital Signs - 24 hr 04/05/20 16:00 04/05/20 16:27 04/05/20 18:00 Temperature 37.1 C Pulse Rate 91 91 108 H Respiratory Rate 20 Blood Pressure 105/67 Pulse Oximetry 96 04/05/20 20:00 04/05/20 21:55 04/06/20 00:00 Temperature 36.6 C 36.9 C Pulse Rate 100 95 98 Respiratory Rate 22 H 22 H Blood Pressure 108/60 100/72 Pulse Oximetry 97 96 04/06/20 02:00 04/06/20 03:36 04/06/20 05:39 Temperature 37.2 C Pulse Rate 102 H 105 H 101 H Respiratory Rate 22 H Blood Pressure 111/70 Pulse Oximetry 20 L 04/06/20 08:00 04/06/20 10:00 04/06/20 12:00 Temperature 36.9 C 36.4 C Pulse Rate 96 114 H 136 H Respiratory Rate 18 18 Blood Pressure 117/62 111/58 L Pulse Oximetry 97 97 04/06/20 13:38 Temperature Pulse Rate 118 H Respiratory Rate Blood Pressure Pulse Oximetry Intake/Output Intake/Output: Intake & Output 04/03/20 04/04/20 04/05/20 04/06/20 23:59 23:59 23:59 23:59 Intake Total 3000 1875 3185 2040 Output Total 1000 1150 650 750 Balance 1999 961 2671 0061 Meds/Results Medications: Active Medications Generic Name Dose Route Start Last Admin Trade Name Freq PRN Reason Stop Dose Admin Acetaminophen 650 mg 04/03/20 16:50 04/04/20 16:40 Tylenol Tablet PO 650 mg Q6H PRN Administration Mild Pain (1-3) or Fever Allopurinol 300 mg 04/05/20 09:00 04/06/20 08:14 Zyloprim PO 300 mg DAILY JUAN LUIS Administration Diltiazem HCl 60 mg 04/06/20 12:00 04/06/20 12:25 Cardizem Tab PO 60 mg Q6HR JUAN LUIS Administration Dorzolamide HCl 1 drop 04/04/20 17:00 04/06/20 08:14 Trusopt EACH EYE 1 drop BID JUAN LUIS Administration Fluconazole 100 mg 04/04/20 17:00 04/05/20 17:23 Diflucan Tablet PO 100 mg DAILY@1700 JUAN LUIS Administration Heparin Sodium (Beef Lung) 50 units 04/05/20 09:00 04/06/20 08:14 Heparin Flush 50 Units/5 Ml IV PUSH Not Given QAM JUAN LUIS Heparin Sodium (Beef Lung) 50 units 04/04/20 15:01 Heparin Flush 50 Units/5 Ml IV PUSH PRN PRN after intermittent infusion Heparin Sodium (Beef Lung) 50 units 04/04/20 15:01 04/05/20 05:52 Heparin Flush 50 Units/5 Ml IV PUSH 50 units PRN PRN Administration after blood draws Heparin Sodium (Porcine) 500 units 04/04/20 15:01 Heparin Sod Flush 100 Units/Ml IV PUSH PRN PRN see comments below Cefepime HCl 1 gm in 50 mls @ 100 mls/hr 04/04/20 07:05 04/06/20 13:37 Maxipime 1 Gm/D5w 50 Ml IVPB 100 mls/hr Q8HR JUAN LUIS Administration Lactated Ringer's 1,000 mls @ 75 mls/hr 04/04/20 10:55 04/06/20 13:37 Lr - Lactated Ringers Iv IV CONT 75 mls/hr .[id number] JUAN LUIS Administration Vancomycin HCl 1,500 mg in 500 mls @ 333.333 mls/hr 04/05/20 10:00 04/06/20 04:56 Vancomycin 1,500 Mg/D5w 500 Ml IVPB Infused Q18H JUAN LUIS Infusion Latanoprost 1 drop 04/04/20 21:00 04/05/20 21:15
--- NOTE | 2020-04-06 15:05 | PM.IMPN ---
Progress Note: A&P Assessment and Plan (1) Neutropenic fever: Code(s): D70.9 - Neutropenia, unspecified; R50.81 - Fever presenting with conditions classified elsewhere Status: Acute Assessment and Plan: 04/06/20 15:05 Yuniel Jimenes is a 79 year old male With history of acute myeloid leukemia patient is seen by oncologist at the [facility] and has been treated and his last chemotherapy was on March 20 and currently he is taking venetoclax 100 mg orally. patient is under investigation for COVID-19 patient was seen but not examine and currently is quite somnolent unable to provide ROS or history most of the history is recorded from from emergency department record and after talking to his oncologist Dr. Queen, patient was brought to emergency department from home he is quite weak and fatigue and chronically leukopenia and currently on prophylactic antibiotic, his current white count is 0.2, discussed with the oncologist currently does not want to start the patient on growth factor this may and hence the activity leukemic cells. patient is started on broad-spectrum antibiotics with cefepime, vancomycin, antifungal fluconazole, antiviral acyclovir, we have consulted Dr. Fuller for further recommendatiosn, Today 04/04 patient is still quite somnolent unable to provide detailed review of symptom, patient hemoglobin is 7 will transfuse 2 unit pack RBC, platelets slightly better today to 13,000, today on 04/06 patient HH is stable and there is slightly increase in WBC to 0.5, his blood culture is growing Streptococcus mitis group and coagulate is negative staphylococcal currently patient is on cefepime and vancomycin, today patient is seen by Dr. fuller and suspect the bacteremia is due to Streptococcus mitis and stopped cefepime and vancomycin started the patient on Rocephin 1, and suggested coagulate negative streptococcal is contaminant, patient is clinically stable afebrile, patient seen by Cardiology AFib rate is controlled with current dose of metoprolol 75 mg q.day, patient is not a candidate for anticoagulation due to thrombocytopenia, will continue to monitor patient will be seen by card painter oncologist (2) Atrial fibrillation: Qualifiers: Atrial fibrillation type: unspecified Qualified Code(s): I48.91 - Unspecified atrial fibrillation Code(s): I48.91 - Unspecified atrial fibrillation Status: Acute Assessment and Plan: rate is high normal most likely secondary to fever stress will continue to monitor he now controlled with the metoprolol (3) AML (acute myelogenous leukemia): Code(s): C92.00 - Acute myeloblastic leukemia, not having achieved remission Status: Acute Assessment and Plan: patient seen by oncologist and card painter plan is above Subjective Date/time seen: 04/06/20 15:05 Yuniel Jimenes is a 79 year old male With history of acute myeloid leukemia patient is seen by oncologist at the [facility] and has been treated and his last chemotherapy was on March 20 and currently he is taking venetoclax 100 mg orally. patient is under investigation for COVID-19 patient was seen but not examine and currently is quite somnolent unable to provide ROS or history most of the history is recorded from from emergency department record and after talking to his oncologist Dr. Queen, patient was brought to emergency department from home he is quite weak and fatigue and chronically leukopenia and currently on prophylactic antibiotic, his current white count is 0.2, discussed with the oncologist currently does not want to start the patient on growth factor this may and hence the activity leukemic cells. patient is started on broad-spectrum antibiotics with cefepime, vancomycin, antifungal fluconazole, antiviral acyclovir, we have consulted Dr. Fulelr for further recommendatiosn, Today 04/04 patient is still quite somnolent unable to provide detailed review of symptom, patient he
--- NOTE | 2020-04-06 16:57 | WPDONCPN ---
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 I have discussed in great detail patient condition with the and the son visiting from [place]. Plan is to perform bone marrow and biopsy next week once patient is more stable. No further chemotherapy is planned at this time. Febrile neutropenia. Patient is afebrile. He is currently on cefepime, Diflucan and acyclovir. Dr. Roy note reviewed. Pancytopenia. We will transfuse as needed basis. Labs showing slight improvement. Atrial fibrillation. Patient is on beta-dayan. - Time Spent With Patient Total time spent is greater than 50% in coordination of care (as documented) at patient's floor/unit and/or counseling patient: 25 - 35 minutes Subjective Interval history: Acute myelogenous leukemia Pancytopenia Febrile neutropenia Review of Systems - Review of Systems Patient is looking much more comfortable today. He looks more energetic. He denies any fevers and chills. Denies any further shaking. No bleeding. No other new complaints. - Neurologic Reports system reviewed and no additional complaints, except as documented, Reports confusion, Reports weakness Exam Vital signs: Temp Pulse Resp BP Pulse Ox 36.8 C 91 16 95/51 L 98 04/06/20 16:00 04/06/20 16:00 04/06/20 16:00 04/06/20 16:00 04/06/20 16:00 Narrative: Lungs are clear to auscultation bilaterally Cardiovascular regular rate rhythm no murmurs Abdomen soft nontender nondistended bowel sounds are positive Extremities no edema PN: Objective Data - Labs CBC & Chem 7: 04/06/20 05:13 04/06/20 05:13 Labs: Laboratory Results - last 24 hr 04/06/20 04/06/20 05:13 05:13 WBC 0.5 L* RBC 2.19 L Hgb 7.4 L Hct 20.8 L* MCV 95.0 MCH 33.8 MCHC 35.6 RDW 18.7 H Plt Count 15 L* MPV TNP Immature Gran % (Auto) 0.0 Neut % (Auto) 2.1 L Lymph % (Auto) 95.7 H [place] % (Auto) 2.2 L Eos % (Auto) 0.0 Baso % (Auto) 0.0 L Lymph # (Auto) 0.44 L [place] # (Auto) 0.0 L Eos # (Auto) 0.0 Baso # (Auto) 0.0 Abs Immat Gran (auto) 0.00 Absolute Neuts (auto) 0.0 L Absolute Nucleated RBC 0.0 Nucleated RBC % 6.5 H Platelet Estimate Decreased % Immature Plt Fraction 4.4 Hypochromasia 2+ Sodium 133 L Potassium 3.0 L Chloride 101 Carbon Dioxide 29 Anion Gap 3 L BUN 16 Creatinine 0.70 Estim Creat Clear Calc 81 Estimated GFR > 60 Glucose 152 H Calcium 7.5 L Total Bilirubin 1.1 AST 24 ALT 28 Alkaline Phosphatase 46 Total Protein 5.0 L Albumin 2.3 L
--- NOTE | 2020-04-06 17:25 | PC.NURSE ---
This patient, Yuniel Jimenes, was transferred to [ [id number]] on 04/06/20 at 1725. Personal belongings sent with patient. Belongings list checked and signed with receiving [ ]. Report given to [ JOE Betts @ [phone]]. Appropriate documentation sent with patient.
[2020-04-06] MEDS: FLUCONAZOLE 100 MG TABLET PO (17:29)
--- NOTE | 2020-04-06 17:47 | PC.NURSE ---
This patient, Yuniel Jimenes, was received from IMU on 04/06/20 at 1747. Personal belongings list checked and signed. Patient/family oriented to unit policies and routines
[2020-04-06] MEDS: LATANOPROST 0.005% OP SOLN 2.5 ML BTL 1 DROP EACH EYE (21:45)
[2020-04-07] VITALS (10 sets, daily range): BP systolic 102–117; BP diastolic 47–53; PULSE 68–99; RESP 18–20; TEMP 36.4–37.3; O2SAT 96–98
[2020-04-07] MEDS: LACTATED RINGERS 1,000 ML 75 ML IV CONT (03:56)
[2020-04-07] MEDS: ACETAMINOPHEN 325 MG TABLET 650 MG PO ×3 (04:02→21:22)
[2020-04-07] MEDS: METOPROLOL TARTRATE 25 MG TABLET PO ×3 (06:12→21:17)
[2020-04-07] MEDS: dilTIAZem HCL 60 MG TABLET PO ×3 (06:13→17:18)
[2020-04-07] MEDS: CENTRAL LINE FLUSH 10 ML IV PUSH ×3 (06:13→21:26)
[2020-04-07 06:37] LABS: Hematocrit 22.5 % (42.0-52.0); Hemoglobin 7.7 g/dL (14.0-18.0); Immature Granulocyte Absolute 0.02 K/mm3 (0.00-0.031); Immature Granulocyte Percent A 2.7 % (0-0.5); Immature Platelet Fraction Pct 4.5 % (0.9-11.2); Lymphocytes Absolute Auto 0.45 K/mm3 (0.9-3.2); Lymphocytes Percent Auto 61.6 % (18.3-44.2); Mean Corpuscular HGB Conc 34.2 g/dl (32-36); Mean Corpuscular Hemoglobin 33.8 pg (26-34); Mean Corpuscular Volume 98.7 fl (80-100); Mean Platelet Volume 10.4 fl (7.4-10.4); Monocytes Absolute Auto 0.3 K/mm3 (0.1-0.6); Monocytes Percent Auto 34.2 % (2.6-8.5); Neutrophils Percent Auto 1.5 % (45.5-73.1); Platelet Count Result 27 k/mm3 (150-375); Red Blood Count 2.28 M/mm3 (4.6-6.20)
[2020-04-07 06:47] LABS: Alanine Aminotransferase 30 U/L (4-50); Albumin Level 2.3 g/dL (3.5-5.1); Alkaline Phosphatase 63 U/L (38-126); Anion Gap 3 mmol/L (8-16); Aspartate Amino Transferase 21 U/L (17-59); Bilirubin,Total 2.2 mg/dL (0.2-1.3); Blood Urea Nitrogen 16 mg/dL (9-20); Calcium 7.7 mg/dL (8.4-10.2); Carbon Dioxide 30 mmol/L (22-30); Chloride 102 mmol/L (98-107); Estimated CRCL calculation 81 ml/min; Estimated Glomerular Filt Rate > 60; Glucose 130 mg/dL (75-110); Potassium 3.2 mmol/L (3.4-5.0); Sodium 135 mmol/L (137-145)
[2020-04-07 06:57] LABS: White Blood Count 0.7 K/mm3 (4.5-10.0)
[2020-04-07] MEDS: POTASSIUM CHLORIDE 20 MEQ TABLET 40 MEQ PO (08:44)
[2020-04-07] MEDS: valACYclovir HCL 500 MG TABLET PO ×2 (08:45→21:17)
[2020-04-07] MEDS: allopurinoL 300 MG TABLET PO (08:45)
[2020-04-07] MEDS: DORZOLAMIDE HCL 2% OPHTH DROPS 1 DROP EACH EYE ×2 (08:45→17:18)
--- NOTE | 2020-04-07 11:40 | PM.PNCARD ---
Progress Note: A&P Assessment and Plan (1) Atrial fibrillation: Qualifiers: Atrial fibrillation type: unspecified Qualified Code(s): I48.91 - Unspecified atrial fibrillation Code(s): I48.91 - Unspecified atrial fibrillation Status: Acute Assessment and Plan: Presented with atrial fibrillation with rapid ventricular response. Heart rate is controlled on Metoprolol tartrate 25 mg every 8 hours and diltiazem 60 mg every 6 hours. Not a candidate for anticoagulation due to pancytopenia and severe thrombocytopenia. (2) Elevated troponin: Code(s): R79.89 - Other specified abnormal findings of blood chemistry Status: Acute Assessment and Plan: At presentation 0.177, no anginal symptoms. Repeat troponin 0.026. Repeat 12 lead EKG Atrial fibrillation at a rate of 100 beats per minute. Right bundle branch block. Baseline wander in AVF before through V6. 2D echocardiogram: Left ventricular chamber size dimension is normal. Left ventricular systolic function is normal. Estimated EF 55-60%. Mildly increase left ventricular wall thickness. Left ventricular septal wall motion is abnormal with septal motion related to bundle branch block. Global longitudinal strain is abnormal at -15%. Left atrial chamber dimension is moderately enlarged. Right atrial chamber dimension is mildly enlarged. Mild aortic valve calcification. Mild mitral valve regurgitation. Mild tricuspid regurgitation. Moderate pulmonary hypertension with an estimated pulmonary arterial systolic pressure of 47 mm Hg. No further workup is needed at this time. (3) Pancytopenia: Code(s): D61.818 - Other pancytopenia Status: Acute Assessment and Plan: Continue to monitor closely. Plans for transfusion as needed. Status post transfusion 3 days prior to admission and 2 U PRBC's 04/04/20. Severe thrombocytopenia and neutropenia. Remains on neutropenic precautions. 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 Recent diagnosis, completed day 5 Dacogen chemotherapy. (5) Neutropenic fever: Code(s): D70.9 - Neutropenia, unspecified; R50.81 - Fever presenting with conditions classified elsewhere Status: Acute Assessment and Plan: Per oncology and Infectious Disease. Broad-spectrum antibiotics. Workup underway. Additional Plan Discontinue telemetry. Plan discussed with Dr. Bernie Navas 04/07/2020 Subjective Date/time seen: 04/07/20 11:40 Interval history: Follow-up for: atrial fibrillation of unknown chronicity which is asymptomatic, pancytopenia following chemotherapy. Date of service: 04/07/2020 Subjective: Denied chest discomfort, lightheadedness or palpitations. Shortness of breath with exertional activity at baseline. Review of Systems Review of Systems: All systems reviewed & are unremarkable except as noted in HPI and below Constitutional: Constitutional: Denies chills, Reports fatigue, Reports lethargy and Reports weakness Eyes: Eyes: Denies blurry vision ENT: Reports hearing loss and Denies epistaxis Cardiovascular: Cardiovascular: Denies chest pain, Denies leg edema, Denies palpitations and Reports dyspnea on exertion Respiratory: Respiratory: Denies cough and Reports dyspnea on exertion Gastrointestinal: Gastrointestinal: Denies abdominal pain, Denies melena, Denies hematochezia, Denies diarrhea, Denies nausea and Denies vomiting Genitourinary: Genitourinary: Reports urinary incontinence Integumentary/Breasts: Skin/Breast: Reports dry skin Neurologic: Denies confusion, Denies dizziness and Reports weakness Psychiatric: Psychiatric: Denies confusion Endo
--- NOTE | 2020-04-07 12:56 | PM.IMPN ---
Progress Note: A&P Assessment and Plan (1) Neutropenic fever: Code(s): D70.9 - Neutropenia, unspecified; R50.81 - Fever presenting with conditions classified elsewhere Status: Acute Assessment and Plan: 04/07/20 12:56 Yuniel Jimenes is a 79 year old male With history of acute myeloid leukemia patient is seen by oncologist at the [facility] and has been treated and his last chemotherapy was on March 20 and currently he is taking venetoclax 100 mg orally. patient is under investigation for COVID-19 patient was seen but not examine and currently is quite somnolent unable to provide ROS or history most of the history is recorded from from emergency department record and after talking to his oncologist Dr. Queen, patient was brought to emergency department from home he is quite weak and fatigue and chronically leukopenia and currently on prophylactic antibiotic, his current white count is 0.2, discussed with the oncologist currently does not want to start the patient on growth factor this may and hence the activity leukemic cells. patient is started on broad-spectrum antibiotics with cefepime, vancomycin, antifungal fluconazole, antiviral acyclovir, we have consulted Dr. Fuller for further recommendatiosn, Today 04/04 patient is still quite somnolent unable to provide detailed review of symptom, patient hemoglobin is 7 will transfuse 2 unit pack RBC, platelets slightly better today to 13,000, today on 04/06 patient HH is stable and there is slightly increase in WBC to 0.5, his blood culture is growing Streptococcus mitis group and coagulate is negative staphylococcal currently patient is on cefepime and vancomycin, on 04/06 patient was seen by Dr. Fuller and suspect the bacteremia is due to Streptococcus mitis and stopped cefepime and vancomycin started the patient on Rocephin 1, and suggested coagulate negative streptococcal is contaminant, on 04/06 Patient was also seen Dr. Queen, patient has completed one round of chemo, once stable will have bone marrow biopsy and further recommendation to follow, today on 04/07 patient's white counts are trending up to 0.7 from 0.2 upon arrival, patient is clinically stable afebrile, patient seen by Cardiology AFib rate is controlled with current dose of metoprolol 25 mg TID and diltiazem 60mg q6, patient is not a candidate for anticoagulation due to thrombocytopenia, today patient is sitting in the chair appears more alert oriented and communicative, will continue to monitor patient is seen by public relations consultant oncologist, Dr fuller and cattle dipper further recommendation to follow, (2) Atrial fibrillation: Qualifiers: Atrial fibrillation type: unspecified Qualified Code(s): I48.91 - Unspecified atrial fibrillation Code(s): I48.91 - Unspecified atrial fibrillation Status: Acute Assessment and Plan: rate is high normal most likely secondary to fever stress will continue to monitor he now controlled with the metoprolol (3) AML (acute myelogenous leukemia): Code(s): C92.00 - Acute myeloblastic leukemia, not having achieved remission Status: Acute Assessment and Plan: patient seen by oncologist and public relations consultant plan is above Subjective Date/time seen: 04/07/20 12:56 Yuniel Jimenes is a 79 year old male With history of acute myeloid leukemia patient is seen by oncologist at the [facility] and has been treated and his last chemotherapy was on March 20 and currently he is taking venetoclax 100 mg orally. patient is under investigation for COVID-19 patient was seen but not examine and currently is quite somnolent unable to provide ROS or history most of the history is recorded from from emergency department record and after talking to his oncologist Dr. Queen, patient was brought to emergency department from home he is quite weak and fatigue and chronically leukopenia and currently on prophylactic antibiotic, his current white count is 0.2, discussed wit
--- NOTE | 2020-04-07 14:38 | WPDINFPN2 ---
Progress Note: A&P Assessment and Plan (1) Neutropenic fever: Code(s): D70.9 - Neutropenia, unspecified; R50.81 - Fever presenting with conditions classified elsewhere Status: Acute Assessment and Plan: 1. Neutropenic fever, due to S mitis bacteremia, respiratory tract or oral 2. CNSS bacteremia, contaminant suspected despite presence of Port 3. AML, chemo initiated REC (Antibiotic 5) Ctx #2. Suppressive valacy. and fluconazole. Will need several days more IV therapy, chiefly guided by recovery in immune function Subjective Date/time seen: 04/07/20 14:38 Interval history: feeling better Exam Narrative: Exam Narrative: afebrile Const: General: no acute distress Resp: Effort & Inspection: normal respiratory effort Auscultation: clear to auscultation bilaterally Cardio: Rate: regular rate Rhythm: regular rhythm Heart sounds: no murmurs Objective Data Vital Signs Vital Signs: Vital Signs - 24 hr 04/06/20 16:00 04/06/20 18:00 04/06/20 19:45 Temperature 36.8 C 37.0 C Pulse Rate 91 109 H Respiratory Rate 16 20 Blood Pressure 95/51 L 115/55 L Pulse Oximetry 98 95 98 04/06/20 20:00 04/06/20 21:45 04/06/20 22:00 Temperature 36.8 C Pulse Rate 94 102 H 87 Respiratory Rate 20 Blood Pressure 110/67 Pulse Oximetry 97 04/07/20 00:00 04/07/20 04:00 04/07/20 06:00 Temperature 36.4 C L Pulse Rate 91 99 98 Respiratory Rate 20 Blood Pressure 104/53 L Pulse Oximetry 98 04/07/20 06:12 04/07/20 08:00 04/07/20 13:14 Temperature Pulse Rate 99 68 98 Respiratory Rate Blood Pressure Pulse Oximetry Intake/Output Intake/Output: Intake & Output 04/04/20 04/05/20 04/06/20 04/07/20 23:59 23:59 23:59 23:59 Intake Total 1875 3185 2440.8 1169.2 Output Total 1150 650 750 600 Balance 725 2535 1690.8 569.2 Meds/Results Medications: Active Medications Generic Name Dose Route Start Last Admin Trade Name Freq PRN Reason Stop Dose Admin Acetaminophen 650 mg 04/03/20 16:50 04/07/20 14:11 Tylenol Tablet PO 650 mg Q6H PRN Administration Mild Pain (1-3) or Fever Allopurinol 300 mg 04/05/20 09:00 04/07/20 08:45 Zyloprim PO 300 mg DAILY JUAN LUIS Administration Diltiazem HCl 60 mg 04/06/20 12:00 04/07/20 12:01 Cardizem Tab PO 60 mg Q6HR JUAN LUIS Administration Dorzolamide HCl 1 drop 04/04/20 17:00 04/07/20 08:45 Trusopt EACH EYE 1 drop BID JUAN LUIS Administration Fluconazole 100 mg 04/04/20 17:00 04/06/20 17:29 Diflucan Tablet PO 100 mg DAILY@1700 JUAN LUIS Administration Heparin Sodium (Beef Lung) 50 units 04/05/20 09:00 04/07/20 08:49 Heparin Flush 50 Units/5 Ml IV PUSH Not Given QAM JUAN LUIS Heparin Sodium (Beef Lung) 50 units 04/04/20 15:01 Heparin Flush 50 Units/5 Ml IV PUSH PRN PRN after intermittent infusion Heparin Sodium (Beef Lung) 50 units 04/04/20 15:01 04/05/20 05:52 Heparin Flush 50 Units/5 Ml IV PUSH 50 units PRN PRN Administration after blood draws Heparin Sodium (Porcine) 500 units 04/04/20 15:01 Heparin Sod Flush 100 Units/Ml IV PUSH PRN PRN see comments below Lactated Ringer's 1,000 mls @ 75 mls/hr 04/04/20 10:55 04/07/20 03:56 Lr - Lactated Ringers Iv IV CONT 75 mls/hr .[id number] JUAN LUIS Administration Ceftriaxone Sodium/Dextrose 1 gm in 50 mls @ 100 mls/hr 04/06/20 14:00 04/07/20 13:14 Rocephin 1 Gm/D5w 50 Ml IVPB 100 mls/hr Q24H JUAN LUIS Administration Latanoprost 1 drop 04/04/20 21:00 04/06/20 21:45 Xalatan EACH EYE 1 drop HS JUAN LUIS Administration Metoprolol Tartrate 25 mg 04/05/20 14:00 04/07/20 13:14 Lopressor PO 25 mg Q8HR JUAN LUIS Administration Sodium Chloride 10 ml 04/04/20 22:00 09/22/20 13:15 Central Line Flush IV PUSH 10 ml Q8HR JUAN LUIS Administration Valacyclovir HCl 500 mg 04/05/20 09:00 04/07/20 08:45 Valtrex PO 500 mg Q12HR JUAN LUIS Administration Radiology Results: ITS Impre
[2020-04-07] MEDS: FLUCONAZOLE 100 MG TABLET PO (17:18)
--- NOTE | 2020-04-07 17:27 | WPDONCPN ---
Progress Note: A/P - Additional Plan Acute myeloid leukemia. Labs noted. WBC count and platelet count has improved. Patient is feeling slightly better and more energetic. Denies any fevers and chills. Continue to observe until further recovery in the bone marrow and clinical improvement. Febrile neutropenia. Patient will continue broad-spectrum antimicrobial coverage. Atrial fibrillation. Patient is on beta-dayan. - Time Spent With Patient Total time spent is greater than 50% in coordination of care (as documented) at patient's floor/unit and/or counseling patient: 15 - 25 minutes Subjective Interval history: Acute myelogenous leukemia Pancytopenia Febrile neutropenia Review of Systems - Review of Systems Patient is much more awake and alert. He denies any fevers and chills. He denies any bleeding and bruising. Complain of tiredness and fatigue. - Neurologic Reports system reviewed and no additional complaints, except as documented, Reports weakness, Denies confusion Exam Vital signs: Curtis Puentes. Assessment of coma and impaired consciousness. A practical scale. Lancet 1974; 2:81-4. Narrative: Lungs are clear to auscultation bilaterally Cardiovascular regular rate rhythm no murmurs Abdomen soft nontender nondistended bowel sounds are positive Extremities no edema PN: Objective Data - Labs CBC & Chem 7: 04/07/20 06:18 04/07/20 06:18 Labs: Laboratory Results - last 24 hr 04/07/20 04/07/20 06:18 06:18 WBC 0.7 L* RBC 2.28 L Hgb 7.7 L Hct 22.5 L MCV 98.7 MCH 33.8 MCHC 34.2 RDW 19.0 H Plt Count 27 L D MPV 10.4 Immature Gran % (Auto) 2.7 H Neut % (Auto) 1.5 L Lymph % (Auto) 61.6 H [place] % (Auto) 34.2 H Eos % (Auto) 0.0 Baso % (Auto) 0.0 L Lymph # (Auto) 0.45 L [place] # (Auto) 0.3 Eos # (Auto) 0.0 Baso # (Auto) 0.0 Abs Immat Gran (auto) 0.02 Absolute Neuts (auto) 0.0 L Absolute Nucleated RBC 0.0 Nucleated RBC % 0.0 % Immature Plt Fraction 4.5 Sodium 135 L Potassium 3.2 L Chloride 102 Carbon Dioxide 30 Anion Gap 3 L BUN 16 Creatinine 0.70 Estim Creat Clear Calc 81 Estimated GFR > 60 Glucose 130 H Calcium 7.7 L Total Bilirubin 2.2 H AST 21 ALT 30 Alkaline Phosphatase 63 Total Protein 5.0 L Albumin 2.3 L
[2020-04-07] MEDS: LATANOPROST 0.005% OP SOLN 2.5 ML BTL 1 DROP EACH EYE (21:17)
[2020-04-08] VITALS (12 sets, daily range): BP systolic 98–125; BP diastolic 50–63; PULSE 64–87; RESP 16–20; TEMP 36.6–37.3; O2SAT 94–98
[2020-04-08] MEDS: dilTIAZem HCL 60 MG TABLET PO ×2 (00:09→05:54)
[2020-04-08] MEDS: CENTRAL LINE FLUSH 10 ML IV PUSH ×2 (05:54→20:39)
[2020-04-08] MEDS: METOPROLOL TARTRATE 25 MG TABLET PO ×2 (05:54→20:35)
[2020-04-08] MEDS: LACTATED RINGERS 1,000 ML 75 ML IV CONT (06:08)
[2020-04-08 06:09] LABS: Immature Granulocyte Absolute 0.01 K/mm3 (0.00-0.031); Immature Granulocyte Percent A 1.3 % (0-0.5); Immature Platelet Fraction Pct 2.6 % (0.9-11.2); Lymphocytes Absolute Auto 0.54 K/mm3 (0.9-3.2); Mean Corpuscular HGB Conc 33.7 g/dl (32-36); Mean Corpuscular Hemoglobin 33.8 pg (26-34); Mean Corpuscular Volume 100.5 fl (80-100); Mean Platelet Volume 12.5 fl (7.4-10.4); Monocytes Absolute Auto 0.2 K/mm3 (0.1-0.6); Neutrophils Percent Auto 2.7 % (45.5-73.1); Nucleated Red Blood Cells Perc 2.7 % (0.0-0.2); Platelet Count Result 38 k/mm3 (150-375); Red Blood Count 1.95 M/mm3 (4.6-6.20); Red Cell Distribution Width 19.5 % (11.5-14.5)
[2020-04-08 06:21] LABS: Alanine Aminotransferase 19 U/L (4-50); Alkaline Phosphatase 61 U/L (38-126); Anion Gap 5 mmol/L (8-16); Aspartate Amino Transferase 13 U/L (17-59); Bilirubin,Total 1.1 mg/dL (0.2-1.3); Blood Urea Nitrogen 14 mg/dL (9-20); Calcium 7.3 mg/dL (8.4-10.2); Carbon Dioxide 26 mmol/L (22-30); Chloride 104 mmol/L (98-107); Estimated CRCL calculation 93 ml/min; Estimated Glomerular Filt Rate > 60; Glucose 111 mg/dL (75-110); Potassium 3.6 mmol/L (3.4-5.0); Sodium 135 mmol/L (137-145)
[2020-04-08 06:21] LABS: Hemoglobin 6.6 g/dL (14.0-18.0); White Blood Count 0.8 K/mm3 (4.5-10.0)
[2020-04-08 06:22] LABS: Hematocrit 19.6 % (42.0-52.0)
[2020-04-08] MEDS: POTASSIUM CHLORIDE 20 MEQ TABLET 40 MEQ PO (08:25)
[2020-04-08] MEDS: DORZOLAMIDE HCL 2% OPHTH DROPS 1 DROP EACH EYE ×2 (08:26→16:52)
[2020-04-08] MEDS: allopurinoL 300 MG TABLET PO (08:26)
[2020-04-08] MEDS: valACYclovir HCL 500 MG TABLET PO ×2 (08:27→20:35)
--- NOTE | 2020-04-08 09:53 | PM.PNCARD ---
Progress Note: A&P Assessment and Plan (1) Atrial fibrillation: Qualifiers: Atrial fibrillation type: unspecified Qualified Code(s): I48.91 - Unspecified atrial fibrillation Code(s): I48.91 - Unspecified atrial fibrillation Status: Acute Assessment and Plan: Presented with atrial fibrillation with rapid ventricular response. Heart rate is controlled. Change diltiazem to long-acting formulation at 180 mg daily starting at noon today. Change Metoprolol tartrate to 37.5 mg every 12 hours. Monitor heart rate and blood pressure response. Not a candidate for anticoagulation due to pancytopenia and severe thrombocytopenia. (2) Elevated troponin: Code(s): R79.89 - Other specified abnormal findings of blood chemistry Status: Acute Assessment and Plan: At presentation 0.177, no anginal symptoms. Repeat troponin 0.026. Repeat 12 lead EKG Atrial fibrillation at a rate of 100 beats per minute. Right bundle branch block. Baseline wander in AVF before through V6. 2D echocardiogram: Left ventricular chamber size dimension is normal. Left ventricular systolic function is normal. Estimated EF 55-60%. Mildly increase left ventricular wall thickness. Left ventricular septal wall motion is abnormal with septal motion related to bundle branch block. Global longitudinal strain is abnormal at -15%. Left atrial chamber dimension is moderately enlarged. Right atrial chamber dimension is mildly enlarged. Mild aortic valve calcification. Mild mitral valve regurgitation. Mild tricuspid regurgitation. Moderate pulmonary hypertension with an estimated pulmonary arterial systolic pressure of 47 mm Hg. No further workup is needed at this time. (3) Pancytopenia: Code(s): D61.818 - Other pancytopenia Status: Acute Assessment and Plan: Per hospitalist service. Plan for transfusion today. Severe thrombocytopenia and neutropenia. Remains on neutropenic precautions. 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 Recent diagnosis, completed day 5 Dacogen chemotherapy. (5) Neutropenic fever: Code(s): D70.9 - Neutropenia, unspecified; R50.81 - Fever presenting with conditions classified elsewhere Status: Acute Assessment and Plan: Per oncology and Infectious Disease. Additional Plan DC lactated Ringer's. Few fine crackles in his bases today. At least 7.5 L positive since admission. Plan discussed with Dr. Monique 10:00 a.m. 04/08/2020 Subjective Date/time seen: 04/08/20 09:53 Interval history: Follow-up for: atrial fibrillation of unknown chronicity which is asymptomatic, pancytopenia following chemotherapy. Date of service: 04/08/2020 Subjective: Denied chest discomfort, shortness of breath, lightheadedness or palpitations. Review of Systems Review of Systems: All systems reviewed & are unremarkable except as noted in HPI and below Constitutional: Constitutional: Denies chills, Reports fatigue, Reports lethargy and Reports weakness Eyes: Eyes: Denies blurry vision ENT: Denies dizziness, Reports hearing loss and Denies epistaxis Cardiovascular: Cardiovascular: Denies chest pain, Denies leg edema, Denies palpitations and Denies dyspnea on exertion Respiratory: Respiratory: Denies cough and Denies dyspnea on exertion Gastrointestinal: Gastrointestinal: Denies abdominal pain, Denies melena, Denies hematochezia, Denies diarrhea, Denies nausea and Denies vomiting Genitourinary: Genitourinary: Reports urinary incontinence Musculoskeletal: Musculoskeletal: Reports no additional musculoskeletal complaints and Reports as per HPI Integumentary/Yuridia
[2020-04-08] MEDS: SODIUM CHLORIDE 0.9% IV 250 ML 30 ML IV CONT (10:10)
[2020-04-08] MEDS: dilTIAZem HCL CD 180 MG CAP.ER.24H PO (12:36)
--- NOTE | 2020-04-08 13:03 | PM.IMPN ---
Progress Note: A&P Assessment and Plan (1) Neutropenic fever: Code(s): D70.9 - Neutropenia, unspecified; R50.81 - Fever presenting with conditions classified elsewhere Status: Acute Assessment and Plan: 04/08/20 13:03 Yuniel Jimenes is a 79 year old male With history of acute myeloid leukemia patient is seen by oncologist at the [facility] and has been treated and his last chemotherapy was on March 20 and currently he is taking venetoclax 100 mg orally. patient is under investigation for COVID-19 patient was seen but not examine and currently is quite somnolent unable to provide ROS or history most of the history is recorded from from emergency department record and after talking to his oncologist Dr. Queen, patient was brought to emergency department from home he is quite weak and fatigue and chronically leukopenia and currently on prophylactic antibiotic, his current white count is 0.2, discussed with the oncologist currently does not want to start the patient on growth factor this may and hence the activity leukemic cells. patient is started on broad-spectrum antibiotics with cefepime, vancomycin, antifungal fluconazole, antiviral acyclovir, we have consulted Dr. Roy for further recommendatiosn, Today 04/04 patient is still quite somnolent unable to provide detailed review of symptom, patient hemoglobin is 7 will transfuse 2 unit pack RBC, platelets slightly better today to 13,000, today on 04/06 patient HH is stable and there is slightly increase in WBC to 0.5, his blood culture is growing Streptococcus mitis group and coagulate is negative staphylococcal currently patient is on cefepime and vancomycin, on 04/06 patient was seen by Dr. Roy and suspect the bacteremia is due to Streptococcus mitis and stopped cefepime and vancomycin started the patient on Rocephin 1, and suggested coagulate negative streptococcal is contaminant, Patient was also seen Dr. Queen, patient has completed one round of chemo, once stable will have bone marrow biopsy and further recommendation to follow, today on 04/08 Rocephin #3. Suppressive valcylovir and fluconazole, patient's white counts are trending up to 0.8 from 0.2 upon arrival, his hemoglobin is down to 6.6, he denies any abdominal or bleeding, will give him 1 unit of pack RBC, patient is clinically stable afebrile, patient seen by Cardiology AFib rate is controlled with current dose of metoprolol 25 mg TID and diltiazem 60mg q6, patient is not a candidate for anticoagulation due to thrombocytopenia, today patient is laying in the bed appears more alert oriented and communicative, will continue to monitor, patient is seen by superintendent schools oncologist, and Dr Roy and director systems further recommendation to follow, (2) Atrial fibrillation: Qualifiers: Atrial fibrillation type: unspecified Qualified Code(s): I48.91 - Unspecified atrial fibrillation Code(s): I48.91 - Unspecified atrial fibrillation Status: Acute Assessment and Plan: rate is high normal most likely secondary to fever stress will continue to monitor he now controlled with the metoprolol (3) AML (acute myelogenous leukemia): Code(s): C92.00 - Acute myeloblastic leukemia, not having achieved remission Status: Acute Assessment and Plan: patient seen by oncologist and superintendent [employer] plan is above Subjective Date/time seen: 04/08/20 13:03 Yuniel Jimenes is a 79 year old male With history of acute myeloid leukemia patient is seen by oncologist at the [facility] and has been treated and his last chemotherapy was on March 20 and currently he is taking venetoclax 100 mg orally. patient is under investigation for COVID-19 patient was seen but not examine and currently is quite somnolent unable to provide ROS or history most of the history is recorded from from emergency department record and after talking to his oncologist Dr. Queen, patient was brought to emergency department
[2020-04-08] MEDS: FUROSEMIDE INJ 40 MG/4 ML VIAL 20 MG IV PUSH (13:13)
--- NOTE | 2020-04-08 13:29 | WPDINFPN2 ---
Progress Note: A&P Assessment and Plan (1) Neutropenic fever: Code(s): D70.9 - Neutropenia, unspecified; R50.81 - Fever presenting with conditions classified elsewhere Status: Acute Assessment and Plan: 1. Neutropenic fever, due to S mitis bacteremia, respiratory tract or oral 2. CNSS bacteremia, contaminant vs true infection, now with both sets + 3. AML, chemo initiated. Anemic, getting RBCs now, wbc not yet recovered REC (Antibiotic 6) Ctx #3. Suppressive valacy. and fluconazole. Add back Vancomycin #1, and redo BCs now Subjective Date/time seen: 04/08/20 13:29 Interval history: no new complaints Exam Narrative: Exam Narrative: afebrile Const: General: no acute distress Eyes: General: appearance normal, both eyes and all related structures Resp: Effort & Inspection: normal respiratory effort Auscultation: clear to auscultation bilaterally Cardio: Rate: regular rate Rhythm: regular rhythm Heart sounds: no murmurs GI: Inspection: non-distended GI Palp: Yes Soft to palpation and No Tenderness to palpation present (GI) Skin: General skin exam: normal color and no rashes or lesions noted Other: port site no erythema nor skin breakdown Objective Data Vital Signs Vital Signs: Vital Signs - 24 hr 04/07/20 14:00 04/07/20 21:17 04/07/20 22:00 Temperature 37.1 C 37.3 C Pulse Rate 80 74 86 Respiratory Rate 18 20 Blood Pressure 102/47 L 117/53 L Pulse Oximetry 97 96 04/08/20 05:54 04/08/20 06:00 04/08/20 10:00 Temperature 37.0 C 36.6 C Pulse Rate 64 84 86 Respiratory Rate 20 18 Blood Pressure 112/53 L 106/52 L Pulse Oximetry 98 95 04/08/20 10:05 04/08/20 10:08 Temperature 36.6 C 36.6 C Pulse Rate 86 86 Respiratory Rate 18 18 Blood Pressure 106/52 L 106/52 L Pulse Oximetry 95 95 Intake/Output Intake/Output: Intake & Output 04/05/20 04/06/20 04/07/20 04/08/20 23:59 23:59 23:59 23:59 Intake Total 3185 2440.8 2739.2 150 Output Total 301 278 0884 400 Balance 2535 1690.8 1089.2 -250 Meds/Results Medications: Active Medications Generic Name Dose Route Start Last Admin Trade Name Freq PRN Reason Stop Dose Admin Acetaminophen 650 mg 04/03/20 16:50 04/07/20 21:22 Tylenol Tablet PO 650 mg Q6H PRN Administration Mild Pain (1-3) or Fever Allopurinol 300 mg 04/05/20 09:00 04/08/20 08:26 Zyloprim PO 300 mg DAILY JUAN LUIS Administration Diltiazem HCl 180 mg 04/08/20 12:00 04/08/20 12:36 Cardizem Cd PO 180 mg QAM JUAN LUIS Administration Dorzolamide HCl 1 drop 04/04/20 17:00 04/08/20 08:26 Trusopt EACH EYE 1 drop BID JUAN LUIS Administration Fluconazole 100 mg 04/04/20 17:00 04/07/20 17:18 Diflucan Tablet PO 100 mg DAILY@1700 JUAN LUIS Administration Heparin Sodium (Beef Lung) 50 units 04/05/20 09:00 04/08/20 08:27 Heparin Flush 50 Units/5 Ml IV PUSH Not Given QAM JUAN LUIS Heparin Sodium (Beef Lung) 50 units 04/04/20 15:01 Heparin Flush 50 Units/5 Ml IV PUSH PRN PRN after intermittent infusion Heparin Sodium (Beef Lung) 50 units 04/04/20 15:01 04/05/20 05:52 Heparin Flush 50 Units/5 Ml IV PUSH 50 units PRN PRN Administration after blood draws Heparin Sodium (Porcine) 500 units 04/04/20 15:01 Heparin Sod Flush 100 Units/Ml IV PUSH PRN PRN see comments below Ceftriaxone Sodium/Dextrose 1 gm in 50 mls @ 100 mls/hr 04/06/20 14:00 04/08/20 13:13 Rocephin 1 Gm/D5w 50 Ml IVPB 100 mls/hr Q24H JUAN LUIS Administration Sodium Chloride 250 mls @ 30 mls/hr 04/08/20 07:45 04/08/20 10:10 Normal Saline Iv IV CONT 04/08/20 16:04 30 mls/hr .Q8H20M STA Administration Latanoprost 1 drop 04/04/20 21:00 04/07/20 21:17 Xalatan EACH EYE 1 drop HS JUAN LUIS Administration Metoprolol Tartrate 25 mg 04/08/20 21:00 Lopressor PO Q12HR JUAN LUIS Metoprolol Tartrate 12.5 mg 04/08/20 21:00 Lopressor PO Q12HR JUAN LUIS Sodium Chloride 10 ml 04/04/20 22:00 03/18
--- NOTE | 2020-04-08 15:46 | WPDONCPN ---
Progress Note: A/P - Additional Plan 1. Neutropenic fever. s/p cycle 1 Dacogen/venetoclax. WBC now 800, afebrile. Initial +BCx for Strep mitis, repeat BCx today pending. Continue IV antibiotics per ID recommendation and prophylactic fluconazole and Valtrex. Hold off on Neupogen. 2. Anemia and thrombocytopenia. s/p 2u PRBC on 04/04 and 1u today. Continue to transfuse to keep Hgb above 7. Plts improving and not required transfusion. 3. 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 s/p cycle 1 of Dacogen (03/16-03/20) and venetoclax 100 mg (on hold currently given pancytopenia). Plan repeat BM biopsy next week. - Time Spent With Patient Total time spent is greater than 50% in coordination of care (as documented) at patient's floor/unit and/or counseling patient: 15 - 25 minutes Subjective Interval history: 79 yo WM admitted 04/03 for neutropenic fever with pancytopenia after presenting with malaise, decreased oral intake, and generalized weakness. He is followed by Dr. Queen for AML diagnosed in January 2020 and completed cycle 1 of Dacogen 2 weeks prior to admission but venetoclax has been held given pancytopenia. Today, WBC and plts are slowly improving but remains < 1000 and 38,000 (sharee 12,000 on admission), respectively. He has required 3u PRBCS, most recently 1u today for Hgb sharee 6.6. We are holding off on Neupogen until repeat BM bx so as not to stimulate leukemic cells. Initial blood cultures grew out Strep mitis and coag negative staph. ID recommended repeat BCx and resume Vanc currently. CXR and urinalysis were negative for infection. COVID negative on 04/03. He remains on IV antibiotics for +BCx and prophylactic Valtrex and fluconazole. He has had at least 2 days with fever (04/03, 04/04 - Tmax 38.8) but is afebrile today. He feels tired but is tolerating sitting up in chair, resting currently. He denies chills, SOB, CP, cough, abdominal pain, or altered bowel habits. Review of Systems - Review of Systems All systems reviewed & are unremarkable except as noted in HPI and bel - Neurologic Reports system reviewed and no additional complaints, except as documented, Reports weakness, Denies confusion Exam Vital signs: Temp Pulse Resp BP Pulse Ox 36.9 C 85 18 107/50 L 96 04/08/20 13:10 04/08/20 13:10 04/08/20 13:10 04/08/20 13:10 04/08/20 13:10 - Constitutional no acute distress - Routine HEENT Exam Head: Present: normal inspection, normocephalic Eye: Present: EOMI, normal appearance - Routine Neck Exam Present: normal inspection. Absent: lymphadenopathy - Routine Chest/Breast/Axilla Exam Axillae: Absent: lymphadenopathy - Routine Respiratory Exam Present: CTAB. Absent: respiratory distress - Routine Cardiovascular Exam Cardiovascular: Present: RRR - Routine Abdominal Exam Present: normal bowel sounds, soft. Absent: tenderness - Routine Exam Comments: [place] cath draining clear yellow urine - Routine Skin Exam Present: pallor, warm - Routine Neurological Exam Present: alert, oriented X3 - Detailed Neurological Exam: Coma Scale Eye Opening: Spontaneous PN: Objective Data - Labs CBC & Chem 7: 04/08/20 06:01 04/08/20 05:57 Labs: Laboratory Results - last 24 hr 04/04/20 04/08/20 04/08/20 10:41 05:57 06:01 WBC 0.8 L* RBC 1.95 L Hgb 6.6 L* Hct 19.6 L* MCV 100.5 H MCH 33.8 MCHC 33.7 RDW 19.5 H Plt Count 38 L MPV 12.5 H Immature Gran % (Auto) 1.3 H Neut % (Auto) 2.7 L Lymph % (Auto) 72.0 H Coleman % (Auto) 24.0 H Eos % (Auto) 0.0 Baso % (Auto) 0.0 L Lymph # (Auto) 0.54 L Coleman # (Auto) 0.2 Eos # (Auto) 0.0 Baso # (Auto) 0.0 Abs Immat Gran (auto) 0.01 Absolute Neuts (auto) 0.0 L Absolute Nucleated RBC 0.0 Nucleated RBC % 2.7 H % Immature Plt Fraction 2.6 Sodium 135 L Potassium 3.6 Chloride 104 Carbon Dioxide 26 Anion Gap 5 L BUN 14 Creatinine 0.60 L Es
[2020-04-08] MEDS: FLUCONAZOLE 100 MG TABLET PO (16:52)
[2020-04-08] MEDS: METOPROLOL TARTRATE 12.5 MG TABLET PO (20:35)
[2020-04-08] MEDS: LATANOPROST 0.005% OP SOLN 2.5 ML BTL 1 DROP EACH EYE (20:35)
[2020-04-09] VITALS (7 sets, daily range): BP systolic 95–111; BP diastolic 52–63; PULSE 64–90; RESP 20; TEMP 36.8–37.1; O2SAT 93–96
[2020-04-09] MEDS: CENTRAL LINE FLUSH 10 ML IV PUSH ×3 (06:02→21:12)
[2020-04-09 06:23] LABS: Alanine Aminotransferase 27 U/L (4-50); Albumin Level 2.3 g/dL (3.5-5.1); Alkaline Phosphatase 103 U/L (38-126); Anion Gap 4 mmol/L (8-16); Aspartate Amino Transferase 23 U/L (17-59); Bilirubin,Total 1.1 mg/dL (0.2-1.3); Blood Urea Nitrogen 14 mg/dL (9-20); Calcium 7.4 mg/dL (8.4-10.2); Carbon Dioxide 29 mmol/L (22-30); Chloride 101 mmol/L (98-107); Estimated CRCL calculation 72 ml/min; Estimated Glomerular Filt Rate > 60; Glucose 148 mg/dL (75-110); Potassium 3.5 mmol/L (3.4-5.0); Sodium 134 mmol/L (137-145)
[2020-04-09 07:10] LABS: Hematocrit 23.7 % (42.0-52.0); Hemoglobin 8.1 g/dL (14.0-18.0); Lymphocytes Absolute Auto 0.68 K/mm3 (0.9-3.2); Lymphocytes Percent Auto 88.3 % (18.3-44.2); Mean Corpuscular HGB Conc 34.2 g/dl (32-36); Mean Corpuscular Hemoglobin 32.9 pg (26-34); Mean Corpuscular Volume 96.3 fl (80-100); Mean Platelet Volume 11.3 fl (7.4-10.4); Monocytes Absolute Auto 0.1 K/mm3 (0.1-0.6); Monocytes Percent Auto 7.8 % (2.6-8.5); Neutrophils Percent Auto 3.9 % (45.5-73.1); Platelet Count Result 52 k/mm3 (150-375); Red Blood Count 2.46 M/mm3 (4.6-6.20)
[2020-04-09 07:13] LABS: White Blood Count 0.8 K/mm3 (4.5-10.0)
[2020-04-09] MEDS: POTASSIUM CHLORIDE 20 MEQ TABLET 40 MEQ PO (08:19)
[2020-04-09] MEDS: valACYclovir HCL 500 MG TABLET PO ×2 (08:21→21:11)
[2020-04-09] MEDS: allopurinoL 300 MG TABLET PO (08:21)
[2020-04-09] MEDS: dilTIAZem HCL CD 180 MG CAP.ER.24H PO (08:21)
[2020-04-09] MEDS: DORZOLAMIDE HCL 2% OPHTH DROPS 1 DROP EACH EYE ×2 (08:22→17:46)
[2020-04-09] MEDS: METOPROLOL TARTRATE 12.5 MG TABLET PO ×2 (08:31→21:11)
[2020-04-09] MEDS: METOPROLOL TARTRATE 25 MG TABLET PO ×2 (08:32→21:11)
[2020-04-09 08:43] LABS: Magnesium 2.1 mg/dL (1.6-2.3)
--- NOTE | 2020-04-09 08:44 | ECG_ITS ---
Measurements Intervals Arma Rate: 74 P: KS: 0 QRS: 58 QRSD: 141 T: 49 QT: 436 QTc: 485 Interpretive Statements ATRIAL FLUTTER/TACHYCARDIA RIGHT BUNDLE BRANCH BLOCK ABNORMAL ECG Electronically Signed On 04-09-2020 11:10:14 CDT by Maldonado Ferrell D.O.
--- NOTE | 2020-04-09 10:53 | PM.PNCARD ---
Progress Note: A&P Assessment and Plan (1) Atrial fibrillation: Qualifiers: Atrial fibrillation type: unspecified Qualified Code(s): I48.91 - Unspecified atrial fibrillation Code(s): I48.91 - Unspecified atrial fibrillation Status: Acute Assessment and Plan: Presented with atrial fibrillation with rapid ventricular response. Heart rate is controlled. Continue Cardizem CD 180 mg daily and Metoprolol tartrate 37.5 mg every 12 hours. Heart rate well controlled. BP stable Not a candidate for anticoagulation due to pancytopenia and severe thrombocytopenia. (2) Elevated troponin: Code(s): R79.89 - Other specified abnormal findings of blood chemistry Status: Acute Assessment and Plan: At presentation 0.177, no anginal symptoms. Repeat troponin 0.026. 2D echocardiogram: Left ventricular chamber size dimension is normal. Left ventricular systolic function is normal. Estimated EF 55-60%. Mildly increase left ventricular wall thickness. Left ventricular septal wall motion is abnormal with septal motion related to bundle branch block. Global longitudinal strain is abnormal at -15%. Left atrial chamber dimension is moderately enlarged. Right atrial chamber dimension is mildly enlarged. Mild aortic valve calcification. Mild mitral valve regurgitation. Mild tricuspid regurgitation. Moderate pulmonary hypertension with an estimated pulmonary arterial systolic pressure of 47 mm Hg. No further workup is needed at this time. (3) Pancytopenia: Code(s): D61.818 - Other pancytopenia Status: Acute Assessment and Plan: Transfused 04/08/2020 Severe thrombocytopenia and neutropenia. Remains on neutropenic precautions. 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 Recent diagnosis, completed day 5 Dacogen chemotherapy. (5) Neutropenic fever: Code(s): D70.9 - Neutropenia, unspecified; R50.81 - Fever presenting with conditions classified elsewhere Status: Acute Assessment and Plan: Per oncology and Infectious Disease. Additional Plan Plan discussed with Dr Gibbs 1100 04/09/2020 Subjective Date/time seen: 04/09/20 10:53 Interval history: Follow-up for: atrial fibrillation of unknown chronicity which is asymptomatic, pancytopenia following chemotherapy. Date of service: 04/09/2020 Subjective: No chest discomfort, shortness of breath, lightheadedness or palpitations. No nausea or vomiting Review of Systems Review of Systems: All systems reviewed & are unremarkable except as noted in HPI and below Constitutional: Constitutional: Denies chills, Reports fatigue and Reports weakness Eyes: Eyes: Denies blurry vision ENT: Denies dizziness, Reports hearing loss and Denies epistaxis Cardiovascular: Cardiovascular: Denies chest pain, Denies leg edema, Denies palpitations and Denies dyspnea on exertion Respiratory: Respiratory: Denies cough and Denies dyspnea on exertion Gastrointestinal: Gastrointestinal: Denies abdominal pain, Denies melena, Denies hematochezia, Denies diarrhea, Denies nausea and Denies vomiting Genitourinary: Genitourinary: Reports urinary incontinence Musculoskeletal: Musculoskeletal: Denies myalgias Integumentary/Breasts: Skin/Breast: Reports dry skin Neurologic: Denies confusion, Denies dizziness and Reports weakness Psychiatric: Psychiatric: Denies confusion Endocrine: Endocrine: Reports fatigue and Denies palpitations Hematologic/Lymphatic: Hematologic/Lymphatic: Reports easy bleeding Allergic/Immunologic: Allergic/Immunologic: Denies GI upset with certain foods Exam Narrative: Exam Narrative: Gener
--- NOTE | 2020-04-09 12:55 | PM.IMPN ---
Progress Note: A&P Assessment and Plan (1) Neutropenic fever: Code(s): D70.9 - Neutropenia, unspecified; R50.81 - Fever presenting with conditions classified elsewhere Status: Acute Assessment and Plan: 04/09/20 12:55 Yuniel Jimenes is a 79 year old male With history of acute myeloid leukemia patient is seen by oncologist at the [facility] and has been treated and his last chemotherapy was on March 20 and currently he is taking venetoclax 100 mg orally. patient is under investigation for COVID-19 patient was seen but not examine and currently is quite somnolent unable to provide ROS or history most of the history is recorded from from emergency department record and after talking to his oncologist Dr. Queen, patient was brought to emergency department from home he is quite weak and fatigue and chronically leukopenia and currently on prophylactic antibiotic, his current white count is 0.2, discussed with the oncologist currently does not want to start the patient on growth factor this may and hence the activity leukemic cells. patient is started on broad-spectrum antibiotics with cefepime, vancomycin, antifungal fluconazole, antiviral acyclovir, we have consulted Dr. Roy for further recommendatiosn, Today 04/04 patient is still quite somnolent unable to provide detailed review of symptom, patient hemoglobin is 7 will transfuse 2 unit pack RBC, platelets slightly better today to 13,000, today on 04/06 patient HH is stable and there is slightly increase in WBC to 0.5, his blood culture is growing Streptococcus mitis group and coagulate is negative staphylococcal currently patient is on cefepime and vancomycin, on 04/06 patient was seen by Dr. Roy and suspect the bacteremia is due to Streptococcus mitis and stopped cefepime and vancomycin started the patient on Rocephin 1, and suggested coagulate negative streptococcal is contaminant, Patient was also seen Dr. Queen, patient has completed one round of chemo, once stable will have bone marrow biopsy and further recommendation to follow, today on 04/09 Rocephin #4. Suppressive valcylovir and fluconazole, repeat blood culture on 04/08 still pending, patient's white counts are stable to 0.8 from 0.2 upon arrival, his hemoglobin was down to 6.6 on 04/08 and he denied any abdominal or bleeding, gave him 1 unit of pack RBC today his HH is 8.1 and platlets are 52 compare to 12 upon arrival patient is clinically stable afebrile, patient seen by Cardiology AFib rate is controlled with current dose of metoprolol 37.5 BID and diltiazem 180mg, patient is not a candidate for anticoagulation due to thrombocytopenia, patient is seen by Dr. 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 patient is under investigation for COVID-19 patient was seen but not examine and currently is quite somnolent unable to provide ROS or history most of the history is recorded from from emergency department record and after talking to his oncologist Dr. Queen, p
--- NOTE | 2020-04-09 13:28 | WPDINFPN2 ---
Progress Note: A&P Assessment and Plan (1) Neutropenic fever: Code(s): D70.9 - Neutropenia, unspecified; R50.81 - Fever presenting with conditions classified elsewhere Status: Acute Assessment and Plan: 1. Neutropenic fever, due to S mitis bacteremia, respiratory tract or oral. Fever resolved 2. CNSS bacteremia, contaminant vs true infection, now with both sets + 3. AML, chemo initiated. Anemic, and wbc not yet recovered REC (Antibiotic 7) Ctx #4. Suppressive valacy. and fluconazole. Vancomycin #2, and f/u on redo BCs. Subjective Date/time seen: 04/09/20 13:28 Interval history: no complaints. Hgb up after 1 unit Exam Narrative: Exam Narrative: afebrile Const: General: no acute distress Eyes: General: appearance normal, both eyes and all related structures Resp: Effort & Inspection: normal respiratory effort Auscultation: clear to auscultation bilaterally Cardio: Rate: regular rate Rhythm: regular rhythm Heart sounds: Gallop heart sound present GI: Inspection: non-distended GI Palp: Yes Soft to palpation and No Tenderness to palpation present (GI) Auscultation: normal bowel sounds Skin: General skin exam: normal color and no rashes or lesions noted Objective Data Vital Signs Vital Signs: Vital Signs - 24 hr 04/08/20 20:35 04/08/20 22:00 04/09/20 06:00 Temperature 37.3 C 36.9 C Pulse Rate 82 85 90 Respiratory Rate 20 20 Blood Pressure 125/63 111/63 Pulse Oximetry 94 93 04/09/20 08:00 04/09/20 08:31 04/09/20 08:32 Temperature Pulse Rate 64 64 64 Respiratory Rate 20 Blood Pressure Pulse Oximetry 93 Intake/Output Intake/Output: Intake & Output 04/06/20 04/07/20 04/08/20 04/09/20 23:59 23:59 23:59 23:59 Intake Total 2440.8 2739.2 1630 450 Output Total 750 1650 2000 700 Balance 1690.8 1089.2 -393 -250 Meds/Results Medications: Active Medications Generic Name Dose Route Start Last Admin Trade Name Freq PRN Reason Stop Dose Admin Acetaminophen 650 mg 04/03/20 16:50 04/07/20 21:22 Tylenol Tablet PO 650 mg Q6H PRN Administration Mild Pain (1-3) or Fever Allopurinol 300 mg 04/05/20 09:00 04/09/20 08:21 Zyloprim PO 300 mg DAILY JUAN LUIS Administration Diltiazem HCl 180 mg 04/08/20 12:00 04/09/20 08:21 Cardizem Cd PO 180 mg QAM JUAN LUIS Administration Docusate Sodium 100 mg 04/09/20 21:00 Colace Capsule PO Q12HR JUAN LUIS Dorzolamide HCl 1 drop 04/04/20 17:00 04/09/20 08:22 Trusopt EACH EYE 1 drop BID JUAN LUIS Administration Fluconazole 100 mg 04/04/20 17:00 04/08/20 16:52 Diflucan Tablet PO 100 mg DAILY@1700 JUAN LUIS Administration Heparin Sodium (Beef Lung) 50 units 04/05/20 09:00 04/09/20 08:26 Heparin Flush 50 Units/5 Ml IV PUSH 50 units QAM JUAN LUIS Administration Heparin Sodium (Beef Lung) 50 units 04/04/20 15:01 Heparin Flush 50 Units/5 Ml IV PUSH PRN PRN after intermittent infusion Heparin Sodium (Beef Lung) 50 units 04/04/20 15:01 04/05/20 05:52 Heparin Flush 50 Units/5 Ml IV PUSH 50 units PRN PRN Administration after blood draws Heparin Sodium (Porcine) 500 units 04/04/20 15:01 Heparin Sod Flush 100 Units/Ml IV PUSH PRN PRN see comments below Ceftriaxone Sodium/Dextrose 1 gm in 50 mls @ 100 mls/hr 04/06/20 14:00 04/08/20 13:43 Rocephin 1 Gm/D5w 50 Ml IVPB 0 mls/hr Q24H JUAN LUIS Infusion Vancomycin HCl 1,500 mg in 500 mls @ 333.333 mls/hr 04/08/20 15:00 04/09/20 03:00 Vancomycin 1,500 Mg/D5w 500 Ml IVPB 333.3 mls/hr Q12H JUAN LUIS Administration Latanoprost 1 drop 04/04/20 21:00 04/08/20 20:35 Xalatan EACH EYE 1 drop HS JUAN LUIS Administration Metoprolol Tartrate 25 mg 04/08/20 21:00 04/09/20 08:32 Lopressor PO 25 mg Q12HR JUAN LUIS Administration Metoprolol Tartrate 12.5 mg 04/08/20 21:00 04/09/20 08:31 Lopressor PO 12.5 mg Q12HR JUAN LUIS Administration Polyethylene Glycol 17 gm 04/09/20 09:13 Kay
--- NOTE | 2020-04-09 13:28 | PC.NURSE ---
On 04/09/20, the student, [Raúl Hoffman ], provided care and completed [facility] documentation on this patient. I have reviewed the student's documentation and agree with the findings.
--- NOTE | 2020-04-09 14:38 | PCPTNOTE ---
Attempted PT evaluation this date. Pt refusing therapy stating he's too fatigued. Will try back tomorrow.
[2020-04-09] MEDS: FLUCONAZOLE 100 MG TABLET PO (17:47)
[2020-04-09] MEDS: polyethylene glycoL 3350 17 GM POWD.PACK PO (17:47)
[2020-04-09] MEDS: LATANOPROST 0.005% OP SOLN 2.5 ML BTL 1 DROP EACH EYE (21:11)
[2020-04-10 02:27] LABS: Hematocrit 24.6 % (42.0-52.0); Hemoglobin 8.1 g/dL (14.0-18.0); Immature Platelet Fraction Pct 2.1 % (0.9-11.2); Lymphocytes Absolute Auto 0.52 K/mm3 (0.9-3.2); Lymphocytes Percent Auto 89.7 % (18.3-44.2); Mean Corpuscular HGB Conc 32.9 g/dl (32-36); Mean Corpuscular Hemoglobin 32.7 pg (26-34); Mean Corpuscular Volume 99.2 fl (80-100); Mean Platelet Volume 11.2 fl (7.4-10.4); Monocytes Percent Auto 5.2 % (2.6-8.5); Neutrophils Percent Auto 5.1 % (45.5-73.1); Platelet Count Result 67 k/mm3 (150-375); Red Blood Count 2.48 M/mm3 (4.6-6.20)
[2020-04-10 02:32] LABS: Alanine Aminotransferase 38 U/L (4-50); Albumin Level 2.3 g/dL (3.5-5.1); Alkaline Phosphatase 103 U/L (38-126); Anion Gap 3 mmol/L (8-16); Aspartate Amino Transferase 33 U/L (17-59); Bilirubin,Total 1.1 mg/dL (0.2-1.3); Blood Urea Nitrogen 14 mg/dL (9-20); Calcium 7.7 mg/dL (8.4-10.2); Carbon Dioxide 29 mmol/L (22-30); Chloride 104 mmol/L (98-107); Estimated CRCL calculation 72 ml/min; Estimated Glomerular Filt Rate > 60; Glucose 124 mg/dL (75-110); Potassium 3.8 mmol/L (3.4-5.0); Sodium 136 mmol/L (137-145)
[2020-04-10 02:49] LABS: White Blood Count 0.6 K/mm3 (4.5-10.0)
[2020-04-10 02:58] LABS: Platelet Estimate Decreased (Adequate)
[2020-04-10 03:00] LABS: Anisocytosis 2+ (NORMAL)
[2020-04-10 03:49] LABS: Vancomycin Trough 11.9 ug/mL (10.0-20.0)
[2020-04-10 06:00] VITALS: BP 114/69; PULSE 91; RESP 20; TEMP 36.9; O2SAT 94
[2020-04-10] MEDS: CENTRAL LINE FLUSH 10 ML IV PUSH ×3 (06:33→21:01)
[2020-04-10] MEDS: allopurinoL 300 MG TABLET PO (08:57)
[2020-04-10] MEDS: DORZOLAMIDE HCL 2% OPHTH DROPS 1 DROP EACH EYE ×2 (08:57→17:02)
[2020-04-10] MEDS: dilTIAZem HCL CD 180 MG CAP.ER.24H PO (08:57)
[2020-04-10] MEDS: DOCUSATE SODIUM 100 MG CAPSULE PO ×2 (08:57→21:01)
[2020-04-10 08:59] VITALS: PULSE 100
[2020-04-10] MEDS: METOPROLOL TARTRATE 25 MG TABLET PO (08:59)
[2020-04-10] MEDS: METOPROLOL TARTRATE 12.5 MG TABLET PO (08:59)
[2020-04-10] MEDS: valACYclovir HCL 500 MG TABLET PO ×2 (09:00→21:01)
--- NOTE | 2020-04-10 09:36 | PM.PNCARD ---
Progress Note: A&P Assessment and Plan (1) Atrial fibrillation: Qualifiers: Atrial fibrillation type: unspecified Qualified Code(s): I48.91 - Unspecified atrial fibrillation Code(s): I48.91 - Unspecified atrial fibrillation Status: Acute Assessment and Plan: Presented with atrial fibrillation with rapid ventricular response. EKG 04/09/[address] Gibbs: atrial flutter at 74 bpm. RBBB. Continue Cardizem CD 180 mg daily and Metoprolol tartrate 37.5 mg every 12 hours. Heart rate well controlled. BP stable Not a candidate for anticoagulation due to pancytopenia and severe thrombocytopenia. (2) Elevated troponin: Code(s): R79.89 - Other specified abnormal findings of blood chemistry Status: Acute Assessment and Plan: At presentation 0.177, no anginal symptoms. Repeat troponin 0.026. 2D echocardiogram: Left ventricular chamber size dimension is normal. Left ventricular systolic function is normal. Estimated EF 55-60%. Mildly increase left ventricular wall thickness. Left ventricular septal wall motion is abnormal with septal motion related to bundle branch block. Global longitudinal strain is abnormal at -15%. Left atrial chamber dimension is moderately enlarged. Right atrial chamber dimension is mildly enlarged. Mild aortic valve calcification. Mild mitral valve regurgitation. Mild tricuspid regurgitation. Moderate pulmonary hypertension with an estimated pulmonary arterial systolic pressure of 47 mm Hg. No further workup is needed at this time. (3) Pancytopenia: Code(s): D61.818 - Other pancytopenia Status: Acute Assessment and Plan: Transfused 04/08/2020 Severe thrombocytopenia and neutropenia. Remains on neutropenic precautions. 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 Recent diagnosis, completed day 5 Dacogen chemotherapy. (5) Neutropenic fever: Code(s): D70.9 - Neutropenia, unspecified; R50.81 - Fever presenting with conditions classified elsewhere Status: Acute Assessment and Plan: Per oncology and Infectious Disease. Additional Plan No further cardiac recommendations. Can be discharged from cardiac standpoint. See discharge instructions for follow-up. Cardiology will sign off. Please do not hesitate to call if we can be of further assistance. Plan discussed with Dr Monique [id number] 04/10/2020 Subjective Date/time seen: 04/10/20 09:36 Interval history: Follow-up for: atrial fibrillation of unknown chronicity which is asymptomatic, pancytopenia following chemotherapy. Date of service: 04/10/2020 Subjective: Denied chest discomfort, shortness of breath, lightheadedness or palpitations. Feeling weak. Plan is to discharge to rehab. Wants to know when he can go home Review of Systems Review of Systems: All systems reviewed & are unremarkable except as noted in HPI and below Constitutional: Constitutional: Denies chills and Reports weakness Eyes: Eyes: Denies blurry vision ENT: Denies dizziness, Reports hearing loss and Denies epistaxis Cardiovascular: Cardiovascular: Denies chest pain, Denies leg edema, Denies palpitations and Denies dyspnea on exertion Respiratory: Respiratory: Denies cough and Denies dyspnea on exertion Gastrointestinal: Gastrointestinal: Denies abdominal pain, Denies melena, Denies hematochezia, Denies diarrhea, Denies nausea and Denies vomiting Genitourinary: Genitourinary: Reports urinary incontinence Musculoskeletal: Musculoskeletal: Denies myalgias Integumentary/Breasts: Skin/Breast: Reports dry skin Neurologic: Denies confusion, Denies dizziness and
--- NOTE | 2020-04-10 12:33 | PCNWS ---
Weekly nutritional screen. Patient is tolerating current diet, likes fruit. No significant weight loss reported. He refused ONS at this time. No nutritional needs at this time.
--- NOTE | 2020-04-10 13:08 | PCPTNOTE ---
Patient refused treatment this session stating he was tired after sitting up earlier today and transferring several times to the bathroom. PT will continue to follow per plan of care.
--- NOTE | 2020-04-10 13:17 | PM.IMPN ---
Progress Note: A&P Assessment and Plan (1) Neutropenic fever: Code(s): D70.9 - Neutropenia, unspecified; R50.81 - Fever presenting with conditions classified elsewhere Status: Acute Assessment and Plan: 04/10/20 13:17 Yuniel Jimenes is a 79 year old male With history of acute myeloid leukemia patient is seen by oncologist at the [facility] and has been treated and his last chemotherapy was on March 20 and currently he is taking venetoclax 100 mg orally. patient is under investigation for COVID-19 patient was seen but not examine and currently is quite somnolent unable to provide ROS or history most of the history is recorded from from emergency department record and after talking to his oncologist Dr. Queen, patient was brought to emergency department from home he is quite weak and fatigue and chronically leukopenia and currently on prophylactic antibiotic, his current white count is 0.2, discussed with the oncologist currently does not want to start the patient on growth factor this may and hence the activity leukemic cells. patient is started on broad-spectrum antibiotics with cefepime, vancomycin, antifungal fluconazole, antiviral acyclovir, we have consulted Dr. Roy for further recommendatiosn, Today 04/04 patient is still quite somnolent unable to provide detailed review of symptom, patient hemoglobin is 7 will transfuse 2 unit pack RBC, platelets slightly better today to 13,000, today on 04/06 patient HH is stable and there is slightly increase in WBC to 0.5, his blood culture is growing Streptococcus mitis group and coagulate is negative staphylococcal currently patient is on cefepime and vancomycin, on 04/06 patient was seen by Dr. Roy and suspect the bacteremia is due to Streptococcus mitis and stopped cefepime and vancomycin started the patient on Rocephin 1, and suggested coagulate negative streptococcal is contaminant, Patient was also seen Dr. Queen, patient has completed one round of chemo, once stable will have bone marrow biopsy and further recommendation to follow, today on 04/10 today patient laying in the bed, stats feeling betterDenies any abdominal pain nausea or vomiting fever or chills, Rocephin #5. vancomycin was added back, Suppressive valcylovir and fluconazole, repeat blood culture on 04/08 still pending, patient's white counts are slightly down to 0.6 compare to 9/24 0.8 from 0.2 upon arrival, his hemoglobin was down to 6.6 on 04/08 and he denied any abdominal or bleeding, gave him 1 unit of pack RBC today his HH is 8.1 and platlets are up to 67 compare to 12 upon arrival, patient is clinically stable afebrile, had a BM yesterday, patient seen by Cardiology AFib there is a drug interaction between diltiazem and venetoclax. diltaizem is stopped and metoprolol was increased to 50mg BID, will monitor HR rate patient is not a candidate for anticoagulation due to thrombocytopenia, patient is seen by Dr. Roy, Dr. Queen, and records technician further recommendation to follow, Also patient will benefit going to [facility] and will consult. (2) Atrial fibrillation: Qualifiers: Atrial fibrillation type: unspecified Qualified Code(s): I48.91 - Unspecified atrial fibrillation Code(s): I48.91 - Unspecified atrial fibrillation Status: Acute Assessment and Plan: rate is high normal most likely secondary to fever stress will continue to monitor he now controlled with the metoprolol (3) AML (acute myelogenous leukemia): Code(s): C92.00 - Acute myeloblastic leukemia, not having achieved remission Status: Acute Assessment and Plan: patient seen by oncologist and fire tender plan is above Subjective Date/time seen: 04/10/20 13:17 Yuniel Jimenes is a 79 year old male With history of acute myeloid leukemia patient is seen by oncologist at the [facility] and has been treated and his last chemotherapy was on March 20 and currently he is taking venetoclax 100 mg orally. p
[2020-04-10 14:00] VITALS: BP 112/58; PULSE 90; RESP 16; TEMP 37; O2SAT 95
--- NOTE | 2020-04-10 14:40 | WPDINFPN2 ---
Progress Note: A&P Assessment and Plan (1) Neutropenic fever: Code(s): D70.9 - Neutropenia, unspecified; R50.81 - Fever presenting with conditions classified elsewhere Status: Acute Assessment and Plan: 1. Neutropenic fever, due to S mitis bacteremia, respiratory tract or oral. Fever resolved 2. CNSS bacteremia, contaminant vs true infection, now with both sets + 3. AML, chemo initiated. Anemic, and wbc not yet recovered REC (Antibiotic 8) Ctx #5. Suppressive valacy. and fluconazole. Vancomycin #3, continue. Can back off his antibiotics if/when his ANC rises over 1000. On the other hand, if neutropenia will be prolonged, I think it will be safe to change to oral antibiotics 04/14 (Monday). He tells me he will have a bone marrow exam 04/13. Subjective Date/time seen: 04/10/20 14:40 Interval history: no new complaints Exam Narrative: Exam Narrative: afebrile Const: General: no acute distress Resp: Effort & Inspection: normal respiratory effort Auscultation: clear to auscultation bilaterally Cardio: Rate: regular rate Rhythm: regular rhythm Heart sounds: no gallops and no murmurs GI: Inspection: non-distended GI Palp: Yes Soft to palpation and No Tenderness to palpation present (GI) Skin: General skin exam: normal color and no rashes or lesions noted Objective Data Vital Signs Vital Signs: Vital Signs - 24 hr 04/09/20 21:11 04/09/20 22:00 04/10/20 06:00 Temperature 37.1 C 36.9 C Pulse Rate 74 89 91 Respiratory Rate 20 20 Blood Pressure 104/53 L 114/69 Pulse Oximetry 94 94 04/10/20 08:59 Temperature Pulse Rate 100 Respiratory Rate Blood Pressure Pulse Oximetry Intake/Output Intake/Output: Intake & Output 04/07/20 04/08/20 04/09/20 04/10/20 23:59 23:59 23:59 23:59 Intake Total 2739.2 1630 2310 870 Output Total 1650 2000 1725 1300 Balance 1089.2 -370 588 -430 Meds/Results Medications: Active Medications Generic Name Dose Route Start Last Admin Trade Name Freq PRN Reason Stop Dose Admin Acetaminophen 650 mg 04/03/20 16:50 09/22/20 21:22 Tylenol Tablet PO 650 mg Q6H PRN Administration Mild Pain (1-3) or Fever Allopurinol 300 mg 04/05/20 09:00 04/10/20 08:57 Zyloprim PO 300 mg DAILY JUAN LUIS Administration Docusate Sodium 100 mg 04/09/20 21:00 04/10/20 08:57 Colace Capsule PO 100 mg Q12HR JUAN LUIS Administration Dorzolamide HCl 1 drop 04/04/20 17:00 04/10/20 08:57 Trusopt EACH EYE 1 drop BID JUAN LUIS Administration Fluconazole 100 mg 04/04/20 17:00 04/09/20 17:47 Diflucan Tablet PO 100 mg DAILY@1700 JUAN LUIS Administration Heparin Sodium (Beef Lung) 50 units 04/05/20 09:00 04/10/20 08:58 Heparin Flush 50 Units/5 Ml IV PUSH 50 units QAM JUAN LUIS Administration Heparin Sodium (Beef Lung) 50 units 04/04/20 15:01 Heparin Flush 50 Units/5 Ml IV PUSH PRN PRN after intermittent infusion Heparin Sodium (Beef Lung) 50 units 04/04/20 15:01 04/05/20 05:52 Heparin Flush 50 Units/5 Ml IV PUSH 50 units PRN PRN Administration after blood draws Heparin Sodium (Porcine) 500 units 04/04/20 15:01 Heparin Sod Flush 100 Units/Ml IV PUSH PRN PRN see comments below Ceftriaxone Sodium/Dextrose 1 gm in 50 mls @ 100 mls/hr 04/06/20 14:00 04/10/20 13:49 Rocephin 1 Gm/D5w 50 Ml IVPB Infused Q24H JUAN LUIS Infusion Vancomycin HCl 1,500 mg in 500 mls @ 333.333 mls/hr 04/08/20 15:00 04/10/20 14:35 Vancomycin 1,500 Mg/D5w 500 Ml IVPB 333.3 mls/hr Q12H JUAN LUIS Administration Latanoprost 1 drop 04/04/20 21:00 04/09/20 21:11 Xalatan EACH EYE 1 drop HS JUAN LUIS Administration Metoprolol Tartrate 50 mg 04/10/20 21:00 Lopressor PO Q12HR JUAN LUIS Polyethylene Glycol 17 gm 04/09/20 09:13 04/09/20 17:47 Miralax PO 17 gm QAM PRN Administration Constipation Sodium Chloride 10 ml 04/04/20 22:00 04/10/20 13:19 Central Line Flush IV PUSH 10 ml Q8HR SC
--- NOTE | 2020-04-10 14:46 | WPDONCPN ---
Progress Note: A/P - Additional Plan Acute myeloid leukemia. We will proceed with bone marrow aspiration and biopsy on April 13. Patient will likely to be discharged to rehab after the bone marrow biopsy. Case was discussed with Dr. Jones today again. Febrile neutropenia. Patient denies any more fever. Infection Disease note reviewed. Continue current antibiotics for now. Atrial fibrillation. Stable. Pancytopenia. Secondary to leukemia. Platelet count has improved. - Time Spent With Patient Total time spent is greater than 50% in coordination of care (as documented) at patient's floor/unit and/or counseling patient: 25 - 35 minutes Subjective Interval history: Acute myelogenous leukemia Pancytopenia Febrile neutropenia Review of Systems - Review of Systems Patient is looking much awake and alert today. He looks more is energetic and stronger. He denies any fevers and chills. He is still eating not much. He denies any diarrhea. No abdominal pain. - Neurologic Reports system reviewed and no additional complaints, except as documented, Reports weakness, Denies confusion Exam Vital signs: Curtis Puentes. Assessment of coma and impaired consciousness. A practical scale. Lancet 1974; 2:81-4. Narrative: lungs are clear to auscultation bilaterally Cardiovascular regular rate rhythm no murmurs Abdomen soft nontender nondistended bowel sounds are positive Extremities no edema - Constitutional no acute distress - Routine HEENT Exam Head: Present: normal inspection, normocephalic - Routine Neck Exam Present: normal inspection. Absent: lymphadenopathy - Routine Chest/Breast/Axilla Exam Axillae: Absent: lymphadenopathy - Routine Respiratory Exam Present: CTAB. Absent: respiratory distress - Routine Cardiovascular Exam Cardiovascular: Present: RRR - Routine Abdominal Exam Present: normal bowel sounds, soft. Absent: tenderness - Routine Skin Exam Present: pallor, warm - Routine Neurological Exam Present: alert, oriented X3 - Detailed Neurological Exam: Coma Scale Eye Opening: Spontaneous PN: Objective Data - Labs CBC & Chem 7: 04/10/20 02:14 04/10/20 02:14 Labs: Laboratory Results - last 24 hr 04/10/20 04/10/20 04/10/20 02:14 02:14 02:14 WBC 0.6 L* RBC 2.48 L Hgb 8.1 L Hct 24.6 L MCV 99.2 MCH 32.7 MCHC 32.9 RDW 20.0 H Plt Count 67 L MPV 11.2 H Immature Gran % (Auto) 0.0 Neut % (Auto) 5.1 L Lymph % (Auto) 89.7 H Luna % (Auto) 5.2 Eos % (Auto) 0.0 Baso % (Auto) 0.0 L Lymph # (Auto) 0.52 L Luna # (Auto) 0.0 L Eos # (Auto) 0.0 Baso # (Auto) 0.0 Abs Immat Gran (auto) 0.00 Absolute Neuts (auto) 0.0 L Absolute Nucleated RBC 0.0 Nucleated RBC % 0.0 Platelet Estimate Decreased % Immature Plt Fraction 2.1 Anisocytosis 2+ Sodium 136 L Potassium 3.8 Chloride 104 Carbon Dioxide 29 Anion Gap 3 L BUN 14 Creatinine 0.80 Estim Creat Clear Calc 72 Estimated GFR > 60 Glucose 124 H Calcium 7.7 L Total Bilirubin 1.1 AST 33 ALT 38 Alkaline Phosphatase 103 Total Protein 6.0 L Albumin 2.3 L Vancomycin Trough 11.9
[2020-04-10] MEDS: FLUCONAZOLE 100 MG TABLET PO (17:02)
[2020-04-10] MEDS: LATANOPROST 0.005% OP SOLN 2.5 ML BTL 1 DROP EACH EYE (21:01)
[2020-04-10 21:02] VITALS: PULSE 87
[2020-04-10] MEDS: METOPROLOL TARTRATE 50 MG TAB PO (21:02)
[2020-04-10 22:00] VITALS: BP 115/61; PULSE 87; RESP 18; TEMP 36.8; O2SAT 99
[2020-04-11] MEDS: CENTRAL LINE FLUSH 10 ML IV PUSH ×3 (05:52→21:27)
[2020-04-11 06:15] VITALS: BP 116/49; PULSE 78; RESP 16; TEMP 36.3; O2SAT 95
[2020-04-11 06:24] LABS: Hematocrit 24.3 % (42.0-52.0); Hemoglobin 7.8 g/dL (14.0-18.0); Immature Platelet Fraction Pct 1.5 % (0.9-11.2); Lymphocytes Absolute Auto 0.52 K/mm3 (0.9-3.2); Lymphocytes Percent Auto 89.7 % (18.3-44.2); Mean Corpuscular HGB Conc 32.1 g/dl (32-36); Mean Corpuscular Hemoglobin 32.5 pg (26-34); Mean Corpuscular Volume 101.3 fl (80-100); Mean Platelet Volume 9.5 fl (7.4-10.4); Monocytes Percent Auto 1.7 % (2.6-8.5); Neutrophils Absolute Auto 0.1 K/mm3 (1.3-6.7); Neutrophils Percent Auto 8.6 % (45.5-73.1); Platelet Count Result 74 k/mm3 (150-375); Red Cell Distribution Width 19.9 % (11.5-14.5)
[2020-04-11 06:35] LABS: Alanine Aminotransferase 34 U/L (4-50); Albumin Level 2.2 g/dL (3.5-5.1); Alkaline Phosphatase 86 U/L (38-126); Anion Gap 1 mmol/L (8-16); Aspartate Amino Transferase 22 U/L (17-59); Blood Urea Nitrogen 14 mg/dL (9-20); Calcium 7.7 mg/dL (8.4-10.2); Carbon Dioxide 29 mmol/L (22-30); Chloride 105 mmol/L (98-107); Estimated CRCL calculation 58 ml/min; Estimated Glomerular Filt Rate > 60; Glucose 131 mg/dL (75-110); Potassium 3.6 mmol/L (3.4-5.0); Sodium 135 mmol/L (137-145)
[2020-04-11 06:57] LABS: White Blood Count 0.6 K/mm3 (4.5-10.0)
[2020-04-11 08:00] VITALS: PULSE 80; RESP 16; O2SAT 95
[2020-04-11] MEDS: DORZOLAMIDE HCL 2% OPHTH DROPS 1 DROP EACH EYE ×2 (09:24→17:50)
[2020-04-11] MEDS: DOCUSATE SODIUM 100 MG CAPSULE PO ×2 (09:24→21:27)
[2020-04-11 09:25] VITALS: PULSE 80
[2020-04-11] MEDS: allopurinoL 300 MG TABLET PO (09:25)
[2020-04-11] MEDS: valACYclovir HCL 500 MG TABLET PO ×2 (09:25→21:26)
[2020-04-11] MEDS: METOPROLOL TARTRATE 50 MG TAB PO ×2 (09:25→21:26)
--- NOTE | 2020-04-11 10:22 | PM.IMPN ---
Progress Note: A&P Assessment and Plan (1) Neutropenic fever: Code(s): D70.9 - Neutropenia, unspecified; R50.81 - Fever presenting with conditions classified elsewhere Status: Acute Assessment and Plan: 04/11/20 10:22 Yuniel Jimenes is a 79 year old male With history of acute myeloid leukemia patient is seen by oncologist at the [facility] and has been treated and his last chemotherapy was on March 20 and currently he is taking venetoclax 100 mg orally. patient is under investigation for COVID-19 patient was seen but not examine and currently is quite somnolent unable to provide ROS or history most of the history is recorded from from emergency department record and after talking to his oncologist Dr. Queen, patient was brought to emergency department from home he is quite weak and fatigue and chronically leukopenia and currently on prophylactic antibiotic, his current white count is 0.2, discussed with the oncologist currently does not want to start the patient on growth factor this may and hence the activity leukemic cells. patient is started on broad-spectrum antibiotics with cefepime, vancomycin, antifungal fluconazole, antiviral acyclovir, we have consulted Dr. Roy for further recommendatiosn, Today 04/04 patient is still quite somnolent unable to provide detailed review of symptom, patient hemoglobin is 7 will transfuse 2 unit pack RBC, platelets slightly better today to 13,000, today on 04/06 patient HH is stable and there is slightly increase in WBC to 0.5, his blood culture is growing Streptococcus mitis group and coagulate is negative staphylococcal currently patient is on cefepime and vancomycin, on 04/06 patient was seen by Dr. Roy and suspect the bacteremia is due to Streptococcus mitis and stopped cefepime and vancomycin started the patient on Rocephin 1, and suggested coagulate negative streptococcal is contaminant, Patient was also seen Dr. Queen, patient has completed one round of chemo, once stable will have bone marrow biopsy and further recommendation to follow, today on 03/22 today patient laying in the bed, working with PT, stats feeling betterDenies any abdominal pain nausea or vomiting fever or chills, Rocephin #6. vancomycin was added back on 04/08, Suppressive valcylovir and fluconazole, repeat blood culture on 04/08 still no growth, patient's white counts are slightly down to 0.6 compare to 04/09 0.8 and up from 0.2 upon arrival, his hemoglobin was down to 6.6 on 04/08 and he denied any abdominal or bleeding, gave him 1 unit of pack RBC today his HH is 7.8 and platlets are up to 74 compare to 12 upon arrival, He was seen by Dr. Queen on 04/10 and plan to do bone aspiration and biopsy on Friday 04/13 and further recommendation to follow, patient is clinically stable afebrile, had a BM today, patient seen by Cardiology for AFib there is a drug interaction between diltiazem and venetoclax. diltaizem is stopped and metoprolol was increased to 50mg BID, will monitor HR rate patient is not a candidate for anticoagulation due to thrombocytopenia, patient is seen by Dr. Roy, Dr. Queen, and waste duster further recommendation to follow, Also patient will benefit going to [facility] and will consult. (2) Atrial fibrillation: Qualifiers: Atrial fibrillation type: unspecified Qualified Code(s): I48.91 - Unspecified atrial fibrillation Code(s): I48.91 - Unspecified atrial fibrillation Status: Acute Assessment and Plan: rate is high normal most likely secondary to fever stress will continue to monitor he now controlled with the metoprolol (3) AML (acute myelogenous leukemia): Code(s): C92.00 - Acute myeloblastic leukemia, not having achieved remission Status: Acute Assessment and Plan: patient seen by oncologist and blasting contract man plan is above Subjective Date/time seen: 04/11/20 10:22 Yuniel Jimenes is a 79 year old male With history of acute myeloid leuk
--- NOTE | 2020-04-11 12:02 | PM.PNCARD ---
Progress Note: A&P Time Spent With Patient Time: AF with controlled V response, pancytopenia in setting of AML, mildly elevated trop and no evidence of ACS plan cont rate control with Metoprolol 50 mg BID, not candidate for oral anticoagulation at this point Subjective Date/time seen: 04/11/20 12:02 Interval history: No acute events No chest pain, SOB or palpitations Review of Systems Review of Systems: All systems reviewed & are unremarkable except as noted in HPI and below Exam Const: General: comfortable and no acute distress Other: Able to lie flat HENMT: General nose exam: Normal nares present and no epistaxis Mouth: Yes moist mucous membranes Eyes: Sclera: sclerae normal Pupils: Equal, round and reactive pupils present Neck: Neck: supple and no JVD Resp: Auscultation: clear to auscultation bilaterally and lung sounds not diminished Other: No chest wall tenderness Cardio: Heart sounds: no gallops, no murmurs and no rubs Other: irregular irregularity GI: Inspection: non-distended GI Palp: Yes Soft to palpation and No Tenderness to palpation present (GI) Auscultation: normal bowel sounds and bowels sounds normal Skin: General skin exam: normal color, rashes and/or lesions noted and no erythema Other: Warm Neuro: Cranial nerves: Yes Equal, round and reactive pupils present Speech: normal speech Other: No obvious focal deficit or facial asymmetry Extrem: General: no edema Other: Normal capillary refills Intact distal pulses. Objective Data Vital Signs Vital Signs: Vital Signs - 24 hr 04/10/20 14:00 04/10/20 21:02 04/10/20 22:00 Temperature 37.0 C 36.8 C Pulse Rate 90 87 87 Respiratory Rate 16 18 Blood Pressure 112/58 L 115/61 Pulse Oximetry 95 99 04/11/20 06:15 04/11/20 08:00 04/11/20 09:25 Temperature 36.3 C L Pulse Rate 78 80 80 Respiratory Rate 16 16 Blood Pressure 116/49 L Pulse Oximetry 95 95 Intake/Output Intake/Output: Intake & Output 04/08/20 04/09/20 04/10/20 04/11/20 23:59 23:59 23:59 23:59 Intake Total 163 2310 1520 600 Output Total 1999 1725 2550 650 Balance -370 585 -1030 -50 Meds/Results Medications: Active Medications Generic Name Dose Route Start Last Admin Trade Name Freq PRN Reason Stop Dose Admin Acetaminophen 650 mg 04/03/20 16:50 04/07/20 21:22 Tylenol Tablet PO 650 mg Q6H PRN Administration Mild Pain (1-3) or Fever Allopurinol 300 mg 04/05/20 09:00 04/11/20 09:25 Zyloprim PO 300 mg DAILY JUAN LUIS Administration Docusate Sodium 100 mg 04/09/20 21:00 04/11/20 09:24 Colace Capsule PO 100 mg Q12HR JUAN LUIS Administration Dorzolamide HCl 1 drop 04/04/20 17:00 04/11/20 09:24 Trusopt EACH EYE 1 drop BID JUAN LUIS Administration Fluconazole 100 mg 04/04/20 17:00 04/10/20 17:02 Diflucan Tablet PO 100 mg DAILY@1700 JUAN LUIS Administration Heparin Sodium (Beef Lung) 50 units 04/05/20 09:00 04/11/20 09:30 Heparin Flush 50 Units/5 Ml IV PUSH 50 units QAM JUAN LUIS Administration Heparin Sodium (Beef Lung) 50 units 04/04/20 15:01 Heparin Flush 50 Units/5 Ml IV PUSH PRN PRN after intermittent infusion Heparin Sodium (Beef Lung) 50 units 04/04/20 15:01 04/11/20 05:56 Heparin Flush 50 Units/5 Ml IV PUSH 50 units PRN PRN Administration after blood draws Heparin Sodium (Porcine) 500 units 04/04/20 15:01 Heparin Sod Flush 100 Units/Ml IV PUSH PRN PRN see comments below Ceftriaxone Sodium/Dextrose 1 gm in 50 mls @ 100 mls/hr 04/06/20 14:00 04/10/20 13:49 Rocephin 1 Gm/D5w 50 Ml IVPB Infused Q24H JUAN LUIS Infusion Vancomycin HCl 1,500 mg in 500 mls @ 333.333 mls/hr 04/08/20 15:00 04/11/20 04:30 Vancomycin 1,500 Mg/D5w 500 Ml IVPB Infused Q12H JUAN LUIS Infusion Latanoprost 1 drop 04/04/20 21:00 04/10/20 21:01 Xalatan EACH EYE 1 drop HS JUAN LUIS Administration Metoprolol Tartrate 50 mg 04/10/20 21:00 04/11/20 09:25 Lopressor
[2020-04-11 14:00] VITALS: BP 112/45; PULSE 74; RESP 18; TEMP 36; O2SAT 99
[2020-04-11] MEDS: FLUCONAZOLE 100 MG TABLET PO (17:50)
[2020-04-11 21:26] VITALS: PULSE 80
[2020-04-11] MEDS: LATANOPROST 0.005% OP SOLN 2.5 ML BTL 1 DROP EACH EYE (21:26)
[2020-04-11 21:43] VITALS: BP 132/45; PULSE 76; RESP 20; TEMP 37.2; O2SAT 95
[2020-04-12] MEDS: HEPARIN SOD FLUSH 500 UNITS/5 ML SYRINGE IV PUSH (05:03)
[2020-04-12] MEDS: CENTRAL LINE FLUSH 10 ML IV PUSH ×3 (05:24→21:42)
[2020-04-12 05:43] LABS: Hemoglobin 7.6 g/dL (14.0-18.0); Lymphocytes Absolute Auto 0.44 K/mm3 (0.9-3.2); Lymphocytes Percent Auto 86.3 % (18.3-44.2); Mean Corpuscular Hemoglobin 33.3 pg (26-34); Mean Corpuscular Volume 100.9 fl (80-100); Neutrophils Absolute Auto 0.1 K/mm3 (1.3-6.7); Neutrophils Percent Auto 11.7 % (45.5-73.1); Platelet Count Result 74 k/mm3 (150-375); Red Blood Count 2.28 M/mm3 (4.6-6.20); Red Cell Distribution Width 19.5 % (11.5-14.5)
[2020-04-12 05:59] LABS: Alanine Aminotransferase 32 U/L (4-50); Albumin Level 2.3 g/dL (3.5-5.1); Alkaline Phosphatase 82 U/L (38-126); Anion Gap 3 mmol/L (8-16); Aspartate Amino Transferase 21 U/L (17-59); Bilirubin,Total 0.6 mg/dL (0.2-1.3); Blood Urea Nitrogen 13 mg/dL (9-20); Calcium 7.6 mg/dL (8.4-10.2); Carbon Dioxide 28 mmol/L (22-30); Chloride 107 mmol/L (98-107); Estimated CRCL calculation 53 ml/min; Estimated Glomerular Filt Rate > 60; Glucose 131 mg/dL (75-110); Potassium 3.4 mmol/L (3.4-5.0); Sodium 138 mmol/L (137-145)
[2020-04-12 06:19] LABS: White Blood Count 0.5 K/mm3 (4.5-10.0)
[2020-04-12 06:22] LABS: Anisocytosis 1+ (NORMAL); Microcytosis 1+ (NORMAL)
[2020-04-12 06:30] VITALS: BP 120/56; PULSE 73; RESP 20; TEMP 37; O2SAT 96
[2020-04-12] MEDS: allopurinoL 300 MG TABLET PO (08:31)
[2020-04-12] MEDS: POTASSIUM CHLORIDE 20 MEQ TABLET 40 MEQ PO (08:31)
[2020-04-12] MEDS: DORZOLAMIDE HCL 2% OPHTH DROPS 1 DROP EACH EYE ×2 (08:31→17:18)
[2020-04-12] MEDS: valACYclovir HCL 500 MG TABLET PO ×2 (08:31→21:42)
[2020-04-12 08:34] VITALS: PULSE 76
[2020-04-12] MEDS: METOPROLOL TARTRATE 50 MG TAB PO ×2 (08:34→21:42)
--- NOTE | 2020-04-12 11:37 | PM.IMPN ---
Progress Note: A&P Assessment and Plan (1) Neutropenic fever: Code(s): D70.9 - Neutropenia, unspecified; R50.81 - Fever presenting with conditions classified elsewhere Status: Acute Assessment and Plan: 04/12/20 11:37 Yuniel Jimenes is a 79 year old male With history of acute myeloid leukemia patient is seen by oncologist at the [facility] and has been treated and his last chemotherapy was on March 20 and currently he is taking venetoclax 100 mg orally. patient is under investigation for COVID-19 patient was seen but not examine and currently is quite somnolent unable to provide ROS or history most of the history is recorded from from emergency department record and after talking to his oncologist Dr. Queen, patient was brought to emergency department from home he is quite weak and fatigue and chronically leukopenia and currently on prophylactic antibiotic, his current white count is 0.2, discussed with the oncologist currently does not want to start the patient on growth factor this may and hence the activity leukemic cells. patient is started on broad-spectrum antibiotics with cefepime, vancomycin, antifungal fluconazole, antiviral acyclovir, we have consulted Dr. Roy for further recommendatiosn, Today 04/04 patient is still quite somnolent unable to provide detailed review of symptom, patient hemoglobin is 7 will transfuse 2 unit pack RBC, platelets slightly better today to 13,000, today on 04/06 patient HH is stable and there is slightly increase in WBC to 0.5, his blood culture is growing Streptococcus mitis group and coagulate is negative staphylococcal currently patient is on cefepime and vancomycin, on 04/06 patient was seen by Dr. Roy and suspect the bacteremia is due to Streptococcus mitis and stopped cefepime and vancomycin started the patient on Rocephin 1, and suggested coagulate negative streptococcal is contaminant, Patient was also seen Dr. Queen, patient has completed one round of chemo, once stable will have bone marrow biopsy and further recommendation to follow, today on 04/12 today patient is sitting in the chair, working with OT, stats feeling better Denies any abdominal pain nausea or vomiting fever or chills, Rocephin #7. vancomycin was added back on 04/08, Suppressive valcylovir and fluconazole, repeat blood culture on 04/08 still no growth, patient's white counts are slightly down to 0.5 compare to 04/09 0.8 and up from 0.2 upon arrival, his hemoglobin was down to 6.6 on 04/08 and he denied any abdominal or bleeding, gave him 1 unit of pack RBC today his HH is 7.6 and platlets are up to 74 compare to 12 upon arrival, He was seen by Dr. Queen on 04/10 and plan to do bone aspiration and biopsy on Friday 04/13 and further recommendation to follow, patient is clinically stable afebrile, had a BM today, patient seen by Cardiology for AFib there is a drug interaction between diltiazem and venetoclax. diltaizem is stopped and metoprolol was increased to 50mg BID, his HR is in 70s and stable, will monitor HR rate, patient is not a candidate for anticoagulation due to thrombocytopenia, patient is seen by Dr. Roy, Dr. Queen, and stove refinisher further recommendation to follow, Also patient will benefit going to [facility] and will consult. (2) Atrial fibrillation: Qualifiers: Atrial fibrillation type: unspecified Qualified Code(s): I48.91 - Unspecified atrial fibrillation Code(s): I48.91 - Unspecified atrial fibrillation Status: Acute Assessment and Plan: rate is high normal most likely secondary to fever stress will continue to monitor he now controlled with the metoprolol (3) AML (acute myelogenous leukemia): Code(s): C92.00 - Acute myeloblastic leukemia, not having achieved remission Status: Acute Assessment and Plan: patient seen by oncologist and caster operator plan is above Subjective Date/time seen: 04/12/20 11:37 Yuniel Jimenes is a 79 year ol
[2020-04-12 14:00] VITALS: BP 121/56; PULSE 72; RESP 20; TEMP 36.9; O2SAT 98
[2020-04-12] MEDS: FLUCONAZOLE 100 MG TABLET PO (17:18)
[2020-04-12 21:42] VITALS: PULSE 73
[2020-04-12] MEDS: LATANOPROST 0.005% OP SOLN 2.5 ML BTL 1 DROP EACH EYE (21:42)
[2020-04-12 22:00] VITALS: BP 117/52; PULSE 73; RESP 16; TEMP 36.6; O2SAT 96
[2020-04-13] VITALS (9 sets, daily range): BP systolic 114–134; BP diastolic 52–63; PULSE 60–71; RESP 18–20; TEMP 36.2–36.7; O2SAT 95–99
[2020-04-13 02:38] LABS: Vancomycin Trough 18.6 ug/mL (10.0-20.0)
[2020-04-13] MEDS: CENTRAL LINE FLUSH 10 ML IV PUSH ×2 (05:12→14:27)
[2020-04-13 05:16] LABS: Hematocrit 23.6 % (42.0-52.0); Hemoglobin 7.4 g/dL (14.0-18.0); Immature Granulocyte Absolute 0.01 K/mm3 (0.00-0.031); Immature Granulocyte Percent A 1.9 % (0-0.5); Lymphocytes Absolute Auto 0.44 K/mm3 (0.9-3.2); Lymphocytes Percent Auto 84.6 % (18.3-44.2); Mean Corpuscular HGB Conc 31.4 g/dl (32-36); Mean Corpuscular Volume 102.2 fl (80-100); Mean Platelet Volume 9.4 fl (7.4-10.4); Monocytes Percent Auto 1.9 % (2.6-8.5); Neutrophils Absolute Auto 0.1 K/mm3 (1.3-6.7); Neutrophils Percent Auto 11.6 % (45.5-73.1); Platelet Count Result 86 k/mm3 (150-375); Red Blood Count 2.31 M/mm3 (4.6-6.20); Red Cell Distribution Width 19.4 % (11.5-14.5)
[2020-04-13 05:32] LABS: Alanine Aminotransferase 32 U/L (4-50); Albumin Level 2.2 g/dL (3.5-5.1); Alkaline Phosphatase 73 U/L (38-126); Anion Gap 1 mmol/L (8-16); Aspartate Amino Transferase 24 U/L (17-59); Bilirubin,Total 0.8 mg/dL (0.2-1.3); Blood Urea Nitrogen 13 mg/dL (9-20); Calcium 7.8 mg/dL (8.4-10.2); Carbon Dioxide 30 mmol/L (22-30); Chloride 108 mmol/L (98-107); Estimated CRCL calculation 53 ml/min; Estimated Glomerular Filt Rate > 60; Glucose 116 mg/dL (75-110); Potassium 3.8 mmol/L (3.4-5.0); Sodium 139 mmol/L (137-145)
[2020-04-13 05:42] LABS: White Blood Count 0.5 K/mm3 (4.5-10.0)
[2020-04-13 05:43] LABS: Platelet Estimate Decreased (Adequate)
[2020-04-13 05:44] LABS: Anisocytosis 1+ (NORMAL)
[2020-04-13] MEDS: allopurinoL 300 MG TABLET PO (08:52)
[2020-04-13] MEDS: DORZOLAMIDE HCL 2% OPHTH DROPS 1 DROP EACH EYE ×2 (08:52→16:36)
[2020-04-13] MEDS: valACYclovir HCL 500 MG TABLET PO ×2 (08:53→20:33)
[2020-04-13] MEDS: METOPROLOL TARTRATE 50 MG TAB PO ×2 (08:53→20:32)
[2020-04-13] MEDS: DOCUSATE SODIUM 100 MG CAPSULE PO (08:53)
--- NOTE | 2020-04-13 10:52 | PC.NURSE ---
Return from Radiology per [ w/c for bone marrow aspiration and bx family has been notified of procedure.
--- NOTE | 2020-04-13 11:15 | WPDMODSED ---
Moderate Sedation Note-Pt Data Patient Data Diagnosis: Acute myelogenous leukemia. Present Complaint: Acute myelogenous leukemia. Procedure to be performed/Plan: Fluoro-guided bone marrow biopsy of right ilium. Allergies Allergy/AdvReac Type Severity Reaction Status Date / Time No Known Allergies Allergy Verified 04/03/20 09:19 Home Medications Medication Instructions Recorded Confirmed Type dorzolamide [Trusopt] 1 drp OPHTHALMIC (EYE) BID 01/22/20 04/03/20 History latanoprost [Xalatan] 1 drp OPHTHALMIC (EYE) HS 01/22/20 04/03/20 History ciprofloxacin HCl [Cipro] 500 mg BID 03/02/20 04/03/20 History posaconazole [Noxafil] 100 mg PO QAM 03/02/20 04/10/20 History valacyclovir 500 mg PO Q12H 03/02/20 04/03/20 History propranolol 20 mg tablet 20 mg PO BID #180 tablet 03/10/20 04/03/20 Rx allopurinol 300 mg PO DAILY 04/03/20 04/03/20 History fluconazole [Diflucan] 200 mg PO DAILY 04/03/20 04/03/20 History venetoclax [Venclexta] 100 mg PO HS 04/03/20 04/03/20 History Current Medications: Active Medications Acetaminophen (Tylenol Tablet) 650 mg PO Q6H PRN PRN Reason: Mild Pain (1-3) or Fever Last Admin: 04/07/20 21:22 Dose: 650 mg Documented by: Allopurinol (Zyloprim) 300 mg PO DAILY [facility] Last Admin: 04/13/20 08:52 Dose: 300 mg Documented by: Docusate Sodium (Colace Capsule) 100 mg PO Q12HR [facility] Last Admin: 04/13/20 08:53 Dose: 100 mg Documented by: Dorzolamide HCl (Trusopt) 1 drop EACH EYE BID [facility] Last Admin: 04/13/20 08:52 Dose: 1 drop Documented by: Fluconazole (Diflucan Tablet) 100 mg PO DAILY@1700 [facility] Last Admin: 04/12/20 17:18 Dose: 100 mg Documented by: Heparin Sodium (Beef Lung) (Heparin Flush 50 Units/5 Ml) 50 units IV PUSH QAM [facility] Last Admin: 04/13/20 08:53 Dose: 50 units Documented by: Heparin Sodium (Beef Lung) (Heparin Flush 50 Units/5 Ml) 50 units IV PUSH PRN PRN PRN Reason: after intermittent infusion Heparin Sodium (Beef Lung) (Heparin Flush 50 Units/5 Ml) 50 units IV PUSH PRN PRN PRN Reason: after blood draws Last Admin: 04/12/20 05:24 Dose: 50 units Documented by: Heparin Sodium (Porcine) (Heparin Sod Flush 100 Units/Ml) 500 units IV PUSH PRN PRN PRN Reason: see comments below Last Admin: 04/12/20 05:03 Dose: 500 units Documented by: Ceftriaxone Sodium/Dextrose (Rocephin 1 Gm/D5w 50 Ml) 1 gm in 50 mls @ 100 mls/hr IVPB Q24H [facility] Last Infusion: 04/12/20 17:24 Dose: Infused Documented by: Vancomycin HCl (Vancomycin 1,500 Mg/D5w 500 Ml) 1,500 mg in 500 mls @ 333.333 mls/hr IVPB Q18H [facility] Last Admin: 04/13/20 08:53 Dose: 333.3 mls/hr Documented by: Latanoprost (Xalatan) 1 drop EACH EYE HS [facility] Last Admin: 04/12/20 21:42 Dose: 1 drop Documented by: Metoprolol Tartrate (Lopressor) 50 mg PO Q12HR [facility] Last Admin: 04/13/20 08:53 Dose: 50 mg Documented by: Polyethylene Glycol (Miralax) 17 gm PO QAM PRN PRN Reason: Constipation Last Admin: 04/09/20 17:47 Dose: 17 gm Documented by: Sodium Chloride (Central Line Flush) 10 ml IV PUSH Q8HR [facility] Last Admin: 04/13/20 05:12 Dose: 10 ml Documented by: Valacyclovir HCl (Valtrex) 500 mg PO Q12HR [facility] Last Admin: 04/13/20 08:53 Dose: 500 mg Documented by: Sedation/Anesthesia: No previous sedation/anesthesia problems (including family history). [facility] Past Medical History Medical History AML (acute myelogenous leukemia) History of prostate cancer Other decreased white blood cell count Pancytopenia Tremor Unspecified glaucoma (01/11/19) Family History Family History Father Family history of malignant neoplasm Sibling Family history of malignant neoplasm Mother Patient's mother is Other Family history of malignant neoplasm of ovary Social History Social History Smoking packs per day: 1 Smoking cigarettes pe
--- NOTE | 2020-04-13 12:03 | ECG_ITS ---
Measurements Intervals [place] Rate: 63 P: 54 NC: 179 QRS: 55 QRSD: 146 T: 42 QT: 458 QTc: 471 Interpretive Statements SINUS RHYTHM RIGHT BUNDLE BRANCH BLOCK ABNORMAL ECG Electronically Signed On 04-13-2020 13:42:09 CDT by Maldonado Ferrell D.O.
--- NOTE | 2020-04-13 13:34 | PCOTNOTE ---
patient returned from bone biopsy; attempted therapy session this afternoon; declined therapy despite encouragement ; per RN patient on bedrest with limited activity
--- NOTE | 2020-04-13 14:09 | WPDINFPN2 ---
Progress Note: A&P Assessment and Plan (1) Neutropenic fever: Code(s): D70.9 - Neutropenia, unspecified; R50.81 - Fever presenting with conditions classified elsewhere Status: Acute Assessment and Plan: 1. Neutropenic fever, due to S mitis bacteremia, respiratory tract or oral. Fever resolved 2. CNSS bacteremia, contaminant vs true infection, now with both sets + 3. AML, chemo initiated. Anemic, wbc not yet recovered, and g-csf not being given. REC (Antibiotic 11) Ctx #8. Suppressive valacy. and fluconazole. Vancomycin #6, continue. BM done a short while ago. Stop antibiotics tomorrow if no events. Subjective Date/time seen: 04/13/20 14:09 Interval history: feels ok. Exam Narrative: Exam Narrative: afebrile Const: General: no acute distress Eyes: General: appearance normal, both eyes and all related structures Resp: Effort & Inspection: normal respiratory effort Auscultation: clear to auscultation bilaterally Cardio: Rate: regular rate Rhythm: regular rhythm Heart sounds: Gallop heart sound present GI: Inspection: non-distended GI Palp: Yes Soft to palpation and No Tenderness to palpation present (GI) Skin: General skin exam: no rashes or lesions noted Objective Data Vital Signs Vital Signs: Vital Signs - 24 hr 04/12/20 21:42 04/12/20 22:00 04/13/20 05:53 Temperature 36.6 C 36.4 C Pulse Rate 73 73 71 Respiratory Rate 16 18 Blood Pressure 117/52 L 122/52 L Pulse Oximetry 96 99 04/13/20 08:00 04/13/20 11:30 04/13/20 11:45 Temperature Pulse Rate 71 65 64 Respiratory Rate 18 18 20 Blood Pressure 123/58 L 131/59 L Pulse Oximetry 99 98 97 04/13/20 12:00 04/13/20 12:30 Temperature Pulse Rate 61 60 Respiratory Rate 18 19 Blood Pressure 114/56 L 116/60 Pulse Oximetry 95 97 Intake/Output Intake/Output: Intake & Output 04/10/20 04/11/20 04/12/20 04/13/20 23:59 23:59 23:59 23:59 Intake Total 1520 1470 1140 100 Output Total 2550 1300 2000 900 Balance -1030 170 860 -800 Meds/Results Medications: Active Medications Generic Name Dose Route Start Last Admin Trade Name Freq PRN Reason Stop Dose Admin Acetaminophen 650 mg 04/03/20 16:50 04/07/20 21:22 Tylenol Tablet PO 650 mg Q6H PRN Administration Mild Pain (1-3) or Fever Allopurinol 300 mg 04/05/20 09:00 04/13/20 08:52 Zyloprim PO 300 mg DAILY [facility] Administration Docusate Sodium 100 mg 04/09/20 21:00 04/13/20 08:53 Colace Capsule PO 100 mg Q12HR [facility] Administration Dorzolamide HCl 1 drop 04/04/20 17:00 04/13/20 08:52 Trusopt EACH EYE 1 drop BID [facility] Administration Fluconazole 100 mg 04/04/20 17:00 04/12/20 17:18 Diflucan Tablet PO 100 mg DAILY@1700 [facility] Administration Heparin Sodium (Beef Lung) 50 units 04/05/20 09:00 04/13/20 08:53 Heparin Flush 50 Units/5 Ml IV PUSH 50 units QAM [facility] Administration Heparin Sodium (Beef Lung) 50 units 04/04/20 15:01 Heparin Flush 50 Units/5 Ml IV PUSH PRN PRN after intermittent infusion Heparin Sodium (Beef Lung) 50 units 04/04/20 15:01 04/12/20 05:24 Heparin Flush 50 Units/5 Ml IV PUSH 50 units PRN PRN Administration after blood draws Heparin Sodium (Porcine) 500 units 04/04/20 15:01 04/12/20 05:03 Heparin Sod Flush 100 Units/Ml IV PUSH 500 units PRN PRN Administration see comments below Ceftriaxone Sodium/Dextrose 1 gm in 50 mls @ 100 mls/hr 04/06/20 14:00 04/12/20 17:24 Rocephin 1 Gm/D5w 50 Ml IVPB Infused Q24H [facility] Infusion Vancomycin HCl 1,500 mg in 500 mls @ 333.333 mls/hr 04/13/20 09:00 04/13/20 08:53 Vancomycin 1,500 Mg/D5w 500 Ml IVPB 333.3 mls/hr Q18H [facility] Administration Latanoprost 1 drop 04/04/20 21:00 04/12/20 21:42 Xalatan EACH EYE 1 drop HS [facility] Administration Metoprolol Tartrate 50 mg 04/10/20 21:00 04/13/20 08:53 Lopressor PO 50 mg Q12HR [facility] Administration Polyethylene Glycol 17 gm 04/09
--- NOTE | 2020-04-13 14:10 | PCPTNOTE ---
The PT treatment was unable to be completed today due to patient refusal. Patient recently returned to room following biopsy and reports he feels groggy and tired. Will continue per Plan of Care frequency and duration.
--- NOTE | 2020-04-13 14:53 | PM.IMPN ---
Progress Note: A&P Assessment and Plan (1) Neutropenic fever: Code(s): D70.9 - Neutropenia, unspecified; R50.81 - Fever presenting with conditions classified elsewhere Status: Acute Assessment and Plan: 04/13/20 14:53 Yuniel Jimenes is a 79 year old male With history of acute myeloid leukemia patient is seen by oncologist at the [facility] and has been treated and his last chemotherapy was on March 20 and currently he is taking venetoclax 100 mg orally. patient is under investigation for COVID-19 patient was seen but not examine and currently is quite somnolent unable to provide ROS or history most of the history is recorded from from emergency department record and after talking to his oncologist Dr. Queen, patient was brought to emergency department from home he is quite weak and fatigue and chronically leukopenia and currently on prophylactic antibiotic, his current white count is 0.2, discussed with the oncologist currently does not want to start the patient on growth factor this may and hence the activity leukemic cells. patient is started on broad-spectrum antibiotics with cefepime, vancomycin, antifungal fluconazole, antiviral acyclovir, we have consulted Dr. Roy for further recommendatiosn, Today 04/04 patient is still quite somnolent unable to provide detailed review of symptom, patient hemoglobin is 7 will transfuse 2 unit pack RBC, platelets slightly better today to 13,000, today on 04/06 patient HH is stable and there is slightly increase in WBC to 0.5, his blood culture is growing Streptococcus mitis group and coagulate is negative staphylococcal currently patient is on cefepime and vancomycin, on 04/06 patient was seen by Dr. Roy and suspect the bacteremia is due to Streptococcus mitis and stopped cefepime and vancomycin started the patient on Rocephin 1, and suggested coagulate negative streptococcal is contaminant, Patient was also seen Dr. Queen, patient has completed one round of chemo, once stable will have bone marrow biopsy and further recommendation to follow, today on 04/13 today patient had a bone marrow aspirtion and biopsy, patient will be seen by Dr. Queen and further recommendations to follow, stats feeling better Denies any abdominal pain nausea or vomiting fever or chills, Rocephin #8. vancomycin #6 was added back on 04/08, Suppressive valcylovir and fluconazole, repeat blood culture on 04/08 still no growth, patient was seen by Dr. Roy if there are further events, we can stop abx tomorrow, patient's white counts are slightly down to 0.5 compare to 04/09 0.8 and up from 0.2 upon arrival patient white is not recovering and patient is not on any growth factor, his hemoglobin was down to 6.6 on 04/08 and he denied any abdominal or bleeding, gave him 1 unit of pack RBC today his HH is 7.4 and platlets are up to 78 compare to 12 upon arrival, He was seen by Dr. Queen on 04/10, patient seen by Cardiology for AFib there is a drug interaction between diltiazem and venetoclax. diltaizem stopped and metoprolol was increased to 50mg BID, his HR is in 70s and stable, will monitor HR rate, patient is not a candidate for anticoagulation due to thrombocytopenia, patient is seen by Dr. Roy, Dr. 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
[2020-04-13] MEDS: FLUCONAZOLE 100 MG TABLET PO (16:36)
[2020-04-13] MEDS: LATANOPROST 0.005% OP SOLN 2.5 ML BTL 1 DROP EACH EYE (20:33)
[2020-04-14 04:59] LABS: Hemoglobin 7.4 g/dL (14.0-18.0); Immature Granulocyte Absolute 0.02 K/mm3 (0.00-0.031); Immature Granulocyte Percent A 3.9 % (0-0.5); Lymphocytes Absolute Auto 0.43 K/mm3 (0.9-3.2); Lymphocytes Percent Auto 84.3 % (18.3-44.2); Mean Corpuscular HGB Conc 32.2 g/dl (32-36); Mean Corpuscular Hemoglobin 32.7 pg (26-34); Mean Corpuscular Volume 101.8 fl (80-100); Mean Platelet Volume 9.6 fl (7.4-10.4); Neutrophils Absolute Auto 0.1 K/mm3 (1.3-6.7); Neutrophils Percent Auto 9.8 % (45.5-73.1); Platelet Count Result 92 k/mm3 (150-375); Red Blood Count 2.26 M/mm3 (4.6-6.20)
[2020-04-14 05:07] LABS: White Blood Count 0.5 K/mm3 (4.5-10.0)
[2020-04-14 05:08] LABS: Platelet Estimate Decreased (Adequate)
[2020-04-14 05:09] LABS: Alanine Aminotransferase 28 U/L (4-50); Albumin Level 2.2 g/dL (3.5-5.1); Alkaline Phosphatase 65 U/L (38-126); Anion Gap 3 mmol/L (8-16); Aspartate Amino Transferase 21 U/L (17-59); Bilirubin,Total 0.6 mg/dL (0.2-1.3); Blood Urea Nitrogen 14 mg/dL (9-20); Calcium 7.8 mg/dL (8.4-10.2); Carbon Dioxide 29 mmol/L (22-30); Chloride 106 mmol/L (98-107); Estimated CRCL calculation 58 ml/min; Estimated Glomerular Filt Rate > 60; Glucose 161 mg/dL (75-110); Potassium 3.6 mmol/L (3.4-5.0); Sodium 138 mmol/L (137-145)
[2020-04-14 06:00] VITALS: BP 123/60; PULSE 66; RESP 20; TEMP 36.7; O2SAT 98
[2020-04-14 08:00] VITALS: PULSE 70; RESP 20; O2SAT 98
[2020-04-14] MEDS: DORZOLAMIDE HCL 2% OPHTH DROPS 1 DROP EACH EYE (09:05)
[2020-04-14] MEDS: valACYclovir HCL 500 MG TABLET PO (09:05)
[2020-04-14] MEDS: allopurinoL 300 MG TABLET PO (09:05)
[2020-04-14 09:08] VITALS: PULSE 70
[2020-04-14] MEDS: METOPROLOL TARTRATE 50 MG TAB PO (09:08)
--- NOTE | 2020-04-14 11:13 | PM.DS ---
DS: Admitting Diagnosis Admitting Diagnosis Admitting Diagnosis: Neutropenic fever/new onset a fib DS: Discharge Diagnosis Discharge Diagnosis (1) Neutropenic fever: Code(s): D70.9 - Neutropenia, unspecified; R50.81 - Fever presenting with conditions classified elsewhere Status: Acute Assessment and Plan: 04/13/20 14:53 Yuniel Jimenes is a 79 year old male With history of acute myeloid leukemia patient is seen by oncologist at the [facility] and has been treated and his last chemotherapy was on March 20 and currently he is taking venetoclax 100 mg orally. patient is under investigation for COVID-19 patient was seen but not examine and currently is quite somnolent unable to provide ROS or history most of the history is recorded from from emergency department record and after talking to his oncologist Dr. Queen, patient was brought to emergency department from home he is quite weak and fatigue and chronically leukopenia and currently on prophylactic antibiotic, his current white count is 0.2, discussed with the oncologist currently does not want to start the patient on growth factor this may and hence the activity leukemic cells. patient is started on broad-spectrum antibiotics with cefepime, vancomycin, antifungal fluconazole, antiviral acyclovir, we have consulted Dr. Roy for further recommendatiosn, Today 04/04 patient is still quite somnolent unable to provide detailed review of symptom, patient hemoglobin is 7 will transfuse 2 unit pack RBC, platelets slightly better today to 13,000, today on 04/06 patient HH is stable and there is slightly increase in WBC to 0.5, his blood culture is growing Streptococcus mitis group and coagulate is negative staphylococcal currently patient is on cefepime and vancomycin, on 04/06 patient was seen by Dr. Roy and suspect the bacteremia is due to Streptococcus mitis and stopped cefepime and vancomycin started the patient on Rocephin 1, and suggested coagulate negative streptococcal is contaminant, Patient was also seen Dr. Queen, patient has completed one round of chemo, once stable will have bone marrow biopsy and further recommendation to follow, today on 04/13 today patient had a bone marrow aspirtion and biopsy, patient will be seen by Dr. Queen and further recommendations to follow, stats feeling better Denies any abdominal pain nausea or vomiting fever or chills, Rocephin #8. vancomycin #6 was added back on 04/08, Suppressive valcylovir and fluconazole, repeat blood culture on 04/08 still no growth, patient was seen by Dr. Roy if there are further events, we can stop abx tomorrow, patient's white counts are slightly down to 0.5 compare to 04/09 0.8 and up from 0.2 upon arrival patient white is not recovering and patient is not on any growth factor, his hemoglobin was down to 6.6 on 04/08 and he denied any abdominal or bleeding, gave him 1 unit of pack RBC today his HH is 7.4 and platlets are up to 78 compare to 12 upon arrival, He was seen by Dr. Queen on 04/10, patient seen by Cardiology for AFib there is a drug interaction between diltiazem and venetoclax. diltaizem stopped and metoprolol was increased to 50mg BID, his HR is in 70s and stable, will monitor HR rate, patient is not a candidate for anticoagulation due to thrombocytopenia, patient is seen by Dr. Ryo, Dr. 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 (2) Atrial fibrillation: Qualifiers: Atrial fibrillation type: unspecified Qualified Code(s): I48.91 - Unspecified atrial fibrillation Code(s): I48.91 - Unspecified atrial fibrillation Status: Acute Assessment and Plan: rate is high normal most likely secondary to fever stress will continue to monitor he now controlled with the metoprolol (3) AML (acute myelogenous leukemia): Code(s): C92.00 - Acute myeloblastic leukemia, not having achieved remission
--- NOTE | 2020-04-14 11:25 | PM.PNCARD ---
Progress Note: A&P Assessment and Plan (1) Atrial fibrillation: Qualifiers: Atrial fibrillation type: unspecified Qualified Code(s): I48.91 - Unspecified atrial fibrillation Code(s): I48.91 - Unspecified atrial fibrillation Status: Acute Assessment and Plan: Presented with atrial fibrillation with rapid ventricular response. EKG 04/09/[address] Gibbs: atrial flutter at 74 bpm. RBBB. Metoprolol changed to 50 mg every 12 hours and diltiazem was discontinued. Diltiazem interacted with venetoclax. EKG 04/13/2020 personally reviewed. Sinus rhythm with a right bundle branch block at 63 beats per minute. Exam today heart rate is regular with normal S1-S2. Not a candidate for anticoagulation due to pancytopenia and severe thrombocytopenia. (2) Elevated troponin: Code(s): R79.89 - Other specified abnormal findings of blood chemistry Status: Acute Assessment and Plan: At presentation 0.177, no anginal symptoms. Repeat troponin 0.026. 2D echocardiogram: Left ventricular chamber size dimension is normal. Left ventricular systolic function is normal. Estimated EF 55-60%. Mildly increase left ventricular wall thickness. Left ventricular septal wall motion is abnormal with septal motion related to bundle branch block. Global longitudinal strain is abnormal at -15%. Left atrial chamber dimension is moderately enlarged. Right atrial chamber dimension is mildly enlarged. Mild aortic valve calcification. Mild mitral valve regurgitation. Mild tricuspid regurgitation. Moderate pulmonary hypertension with an estimated pulmonary arterial systolic pressure of 47 mm Hg. No further workup is needed at this time. (3) Pancytopenia: Code(s): D61.818 - Other pancytopenia Status: Acute Assessment and Plan: Transfused 04/08/2020 . H&H is stable. Severe thrombocytopenia and neutropenia. Remains on neutropenic precautions. (4) AML (acute myelogenous leukemia): Code(s): C92.00 - Acute myeloblastic leukemia, not having achieved remission Status: Acute Assessment and Plan: Dr Queen following. Bone marrow biopsy yesterday. (5) Neutropenic fever: Code(s): D70.9 - Neutropenia, unspecified; R50.81 - Fever presenting with conditions classified elsewhere Status: Acute Assessment and Plan: Per oncology and Infectious Disease. Additional Plan Can be discharged from cardiac standpoint. See discharge instructions for follow-up. Plan discussed with Dr Ba [id number] 04/14/2020 Subjective Date/time seen: 04/14/20 11:25 Interval history: Follow-up for: atrial fibrillation of unknown chronicity which is asymptomatic, pancytopenia following chemotherapy. Date of service: 04/14/2020 Subjective: No chest discomfort, shortness of breath or lightheadedness. Going to [place] today. Review of Systems Review of Systems: All systems reviewed & are unremarkable except as noted in HPI and below Constitutional: Constitutional: Denies chills and Reports weakness Eyes: Eyes: Denies blurry vision ENT: Denies dizziness, Reports hearing loss and Denies epistaxis Cardiovascular: Cardiovascular: Denies chest pain, Denies leg edema, Denies palpitations and Denies dyspnea on exertion Respiratory: Respiratory: Denies cough and Denies dyspnea on exertion Gastrointestinal: Gastrointestinal: Denies abdominal pain, Denies melena, Denies hematochezia, Denies diarrhea, Denies nausea and Denies vomiting Genitourinary: Genitourinary: Reports urinary incontinence Musculoskeletal: Musculoskeletal: Denies myalgias Integumentary/Breasts: Skin/Breast: Reports dry skin Neurologic: Denies confusion, Denies dizziness and Reports weakness Psychiatric: Psychiatric: Denies
--- NOTE | 2020-04-14 12:42 | WPDINFPN2 ---
Progress Note: A&P Assessment and Plan (1) Neutropenic fever: Code(s): D70.9 - Neutropenia, unspecified; R50.81 - Fever presenting with conditions classified elsewhere Status: Acute Assessment and Plan: 1. Neutropenic fever, due to S mitis bacteremia, respiratory tract or oral. Fever resolved 2. CNSS bacteremia, contaminant vs true infection, now with both sets + 3. AML, chemo to continue. REC (Antibiotic 12) Ctx #9. Suppressive valacy. and fluconazole. Vancomycin #7. Stop IV therapy, ok to rehab. Subjective Date/time seen: 04/14/20 12:42 Interval history: no cough no chills Exam Narrative: Exam Narrative: afebrile Const: General: no acute distress Resp: Effort & Inspection: normal respiratory effort Auscultation: clear to auscultation bilaterally Cardio: Rate: regular rate Rhythm: regular rhythm Heart sounds: no murmurs Objective Data Vital Signs Vital Signs: Vital Signs - 24 hr 04/13/20 14:00 04/13/20 20:32 04/13/20 22:00 Temperature 36.2 C L 36.7 C Pulse Rate 65 64 64 Respiratory Rate 18 20 Blood Pressure 134/57 L 122/63 Pulse Oximetry 98 96 04/14/20 06:00 04/14/20 08:00 04/14/20 09:08 Temperature 36.7 C Pulse Rate 66 70 70 Respiratory Rate 20 20 Blood Pressure 123/60 Pulse Oximetry 98 98 Intake/Output Intake/Output: Intake & Output 04/11/20 04/12/20 04/13/20 04/14/20 23:59 23:59 23:59 23:59 Intake Total 1470 1140 900 700 Output Total 1300 2000 2000 600 Balance 170 -860 -1100 100 Meds/Results Medications: Active Medications Generic Name Dose Route Start Last Admin Trade Name Freq PRN Reason Stop Dose Admin Acetaminophen 650 mg 04/03/20 16:50 04/07/20 21:22 Tylenol Tablet PO 650 mg Q6H PRN Administration Mild Pain (1-3) or Fever Allopurinol 300 mg 04/05/20 09:00 04/14/20 09:05 Zyloprim PO 300 mg DAILY JUAN LUIS Administration Docusate Sodium 100 mg 04/09/20 21:00 04/14/20 09:06 Colace Capsule PO Not Given Q12HR JUAN LUIS Dorzolamide HCl 1 drop 04/04/20 17:00 04/14/20 09:05 Trusopt EACH EYE 1 drop BID JUAN LUIS Administration Fluconazole 100 mg 04/04/20 17:00 04/13/20 16:36 Diflucan Tablet PO 100 mg DAILY@1700 JUAN LUIS Administration Heparin Sodium (Beef Lung) 50 units 04/05/20 09:00 04/14/20 09:06 Heparin Flush 50 Units/5 Ml IV PUSH 50 units QAM JUAN LUIS Administration Heparin Sodium (Beef Lung) 50 units 04/04/20 15:01 Heparin Flush 50 Units/5 Ml IV PUSH PRN PRN after intermittent infusion Heparin Sodium (Beef Lung) 50 units 04/04/20 15:01 04/14/20 04:52 Heparin Flush 50 Units/5 Ml IV PUSH 50 units PRN PRN Administration after blood draws Heparin Sodium (Porcine) 500 units 04/04/20 15:01 04/12/20 05:03 Heparin Sod Flush 100 Units/Ml IV PUSH 500 units PRN PRN Administration see comments below Ceftriaxone Sodium/Dextrose 1 gm in 50 mls @ 100 mls/hr 04/06/20 14:00 04/13/20 19:03 Rocephin 1 Gm/D5w 50 Ml IVPB Infused Q24H JUAN LUIS Infusion Vancomycin HCl 1,500 mg in 500 mls @ 333.333 mls/hr 04/13/20 09:00 04/14/20 04:27 Vancomycin 1,500 Mg/D5w 500 Ml IVPB Infused Q18H JUAN LUIS Infusion Latanoprost 1 drop 04/04/20 21:00 04/13/20 20:33 Xalatan EACH EYE 1 drop HS JUAN LUIS Administration Metoprolol Tartrate 50 mg 04/10/20 21:00 04/14/20 09:08 Lopressor PO 50 mg Q12HR JUAN LUIS Administration Polyethylene Glycol 17 gm 04/09/20 09:13 04/09/20 17:47 Miralax PO 17 gm QAM PRN Administration Constipation Sodium Chloride 10 ml 04/04/20 22:00 04/14/20 04:52 Central Line Flush IV PUSH Not Given Q8HR JUAN LUIS Valacyclovir HCl 500 mg 04/05/20 09:00 04/14/20 09:05 Valtrex PO 500 mg Q12HR JUAN LUIS Administration Radiology Results: ITS Impressions Chest X-Ray 04/03/20 10:23 IMPRESSION: No acute cardiopulmonary findings. Biopsy,Fluoroscopy Guided 04/13/20 11:20 IMPRESSION: 1. Fluoro-guided b
[2020-04-14] MEDS: HEPARIN SOD FLUSH 500 UNITS/5 ML SYRINGE IV PUSH (14:59)
[2020-04-14] MEDS: CENTRAL LINE FLUSH 10 ML IV PUSH (15:00)
--- NOTE | 2020-04-14 17:24 | WPDONCPN ---
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 Bone marrow biopsy showed partial response with 18% residual blast. We plan to continue cycle 2. Of chemotherapy in next 7-10 days after recovery from the rehab along with oral treatment with venetaclax Febrile neutropenia. Discussed with Dr. fuller. IV antibiotic discontinued. Patient is going to to be discharged to rehab today. Atrial fibrillation. Stable. Follow-up with me in 7-10 days. - Time Spent With Patient Total time spent is greater than 50% in coordination of care (as documented) at patient's floor/unit and/or counseling patient: 15 - 25 minutes Subjective Interval history: Acute myelogenous leukemia Pancytopenia Febrile neutropenia Review of Systems - Review of Systems Patient looks much more comfortable today. He denies any fevers and chills. He denies any chest pain. No mucositis. He is eating better and ready to be discharged to rehab. - Neurologic Reports system reviewed and no additional complaints, except as documented, Reports weakness, Denies confusion Exam Narrative: Lungs are clear to auscultation bilaterally Cardiovascular regular rate rhythm no murmurs Abdomen soft nontender nondistended bowel sounds are positive Extremities no edema - Constitutional no acute distress - Routine HEENT Exam Head: Present: normal inspection, normocephalic - Routine Neck Exam Present: normal inspection. Absent: lymphadenopathy - Routine Chest/Breast/Axilla Exam Axillae: Absent: lymphadenopathy - Routine Respiratory Exam Present: CTAB. Absent: respiratory distress - Routine Cardiovascular Exam Cardiovascular: Present: RRR - Routine Abdominal Exam Present: normal bowel sounds, soft. Absent: tenderness - Routine Skin Exam Present: pallor, warm - Routine Neurological Exam Present: alert, oriented X3 - Detailed Neurological Exam: Coma Scale Eye Opening: Spontaneous PN: Objective Data - Labs CBC & Chem 7: 04/14/20 04:50 04/14/20 04:50 Labs: Laboratory Results - last 24 hr 04/14/20 04/14/20 04:50 04:50 WBC 0.5 L* RBC 2.26 L Hgb 7.4 L Hct 23.0 L MCV 101.8 H MCH 32.7 MCHC 32.2 RDW 19.0 H Plt Count 92 L MPV 9.6 Immature Gran % (Auto) 3.9 H Neut % (Auto) 9.8 L Lymph % (Auto) 84.3 H [place] % (Auto) 2.0 L Eos % (Auto) 0.0 Baso % (Auto) 0.0 L Lymph # (Auto) 0.43 L [place] # (Auto) 0.0 L Eos # (Auto) 0.0 Baso # (Auto) 0.0 Abs Immat Gran (auto) 0.02 Absolute Neuts (auto) 0.1 L Absolute Nucleated RBC 0.0 Nucleated RBC % 0.0 Platelet Estimate Decreased Sodium 138 Potassium 3.6 Chloride 106 Carbon Dioxide 29 Anion Gap 3 L BUN 14 Creatinine 1.00 Estim Creat Clear Calc 58 Estimated GFR > 60 Glucose 161 H Calcium 7.8 L Total Bilirubin 0.6 AST 21 ALT 28 Alkaline Phosphatase 65 Total Protein 5.0 L Albumin 2.2 L
== END 2020-04-14 15:10 | DRG 809 ==
LOC: ANHED 11:18 → ANHICU 12:39 → ANHIMU 04-05 20:54 → ANH3MEDSUR 04-08 16:01 → ANHICU 04-15 15:01 → ANHIMU 04-15 15:01
PROVIDERS: Internal Medicine Cardiovascular Disease; Internal Medicine Infectious Disease; Radiology Diagnostic Radiology; Admitting Provider Internal Medicine; Emergency Provider Emergency Medicine; PCP Internal Medicine; Referring Provider Internal Medicine Hematology & Oncology; Visit Provider Family Medicine
PROC: 07DR3ZX Extraction of Iliac Bone Marrow, Percutaneous Approach, Diagnostic (ICD-10-PCS; principal; 2020-04-13 10:30)
DX: D70.8 Other neutropenia (principal); C92.00 Acute myeloblastic leukemia, not having achieved remission; R78.81 Bacteremia; R50.81 Fever presenting with conditions classified elsewhere; D61.818 Other pancytopenia; B95.4 Other streptococcus as the cause of diseases classified elsewhere; I48.91 Unspecified atrial fibrillation; Z20.828 Contact with and (suspected) exposure to other viral communicable diseases; T45.1X5A Adverse effect of antineoplastic and immunosuppressive drugs, initial encounter; T46.1X5A Adverse effect of calcium-channel blockers, initial encounter; H40.9 Unspecified glaucoma; Z85.46 Personal history of malignant neoplasm of prostate; Z87.891 Personal history of nicotine dependence
CPT/HCPCS: 36415; 36430; 36600; 38222; 51702; 71045; 80053; 80202; 81001; 82805; 83605; 83735; 84484; 85025; 85055; 85610; 85730; 86140; 86850; 86900; 86901; 86923; 87040; 87077; 87186; 87635; 88184; 88185; 88305; 88311; 88313; 88342; 88360; 93005; 93306; 96365; 96375; 97110; 97116; 97161; 97166; 97530; 97535; 99285; A9270; C9803; J0131; J0133; J0692; J0696; J1642; J1940; J2250; J2405; J3010; J3370; J7030; J7040; J7050; J7120; P9016; U0003